=== PATIENT | male | born 1945 | race Caucasian/White ===

== ENCOUNTER → 2017-12-12 12:54 | Outpatient (CLI) | payer MEDICARE, SELFPAY ==
--- NOTE | 2017-12-12 12:57 | CDU_ITS ---
Reason For Study: Carotid stenosis Rt. Velocities/BP Lt. Velocities/BP Prox CCA 99.7/24.0 cm/sec. Prox CCA 103.0/26.4 cm/sec. Mid CCA 93.8/21.7 cm/sec. Mid CCA 95.0/28.1 cm/sec. Dist CCA 93.2/22.9 cm/sec. Dist CCA 86.2/28.7 cm/sec. Prox ICA 87.9/27.0 cm/sec. Prox ICA 86.8/29.9 cm/sec. Mid ICA 89.1/27.0 cm/sec. Mid ICA 96.7/31.7 cm/sec. Dist ICA 99.0/33.6 cm/sec. Dist ICA 107.0/39.3 cm/sec. Rt. ICA/CCA = 1.1. Lt. ICA/CCA = 1.1. Prox ECA 104.0/14.7 cm/sec. Prox ECA 87.4/22.3 cm/sec. Rt. Vert. 36.9/8.6 cm/sec. Lt. Vert. 51.6/15.8 cm/sec. Right Extracranial There is intimal thickening but no significant atherosclerotic plaque noted in the right common carotid artery. There is heterogeneous, irregular atherosclerotic plaque noted in the right internal carotid artery. There is intimal thickening but no significant atherosclerotic plaque noted in the right external carotid artery. Antegrade flow is noted in the right vertebral artery. Left Extracranial There is intimal thickening but no significant atherosclerotic plaque noted in the left common carotid artery. There is heterogeneous, irregular atherosclerotic plaque noted in the left internal carotid artery. There is intimal thickening but no significant atherosclerotic plaque noted in the left external carotid artery. Antegrade flow is noted in the left vertebral artery. Procedure Carotid Duplex [id number]. Exam performed in department. Interpretation Summary Mild (<50%) stenosis right extracranial internal carotid. Mild (<50%) stenosis left extracranial internal carotid. Flow within the vertebral arteries is antegrade bilaterally. Ordering Physician: Melissa العراقي Referring Physician: Melissa العراقي Performed By: Natacha Farfan RVT
== END ==
PROVIDERS: Family Provider Internal Medicine; PCP Internal Medicine; Visit Provider Internal Medicine
DX: I65.23 Occlusion and stenosis of bilateral carotid arteries (principal)
CPT/HCPCS: 93880

== ENCOUNTER → 2018-06-14 10:48 | Outpatient (CLI) | payer MEDICARE, SELFPAY ==
[2018-06-14 11:21] LABS: Hematocrit 42.1 % (40-54); Hemoglobin 14.4 g/dl (13.0-16.5); Mean Corp Hgb Conc 34.2 g/gl (32-36); Mean Corpuscular Hgb 30.3 pg (27.0-32.0); Mean Corpuscular Volume 88.4 fL (80-94); Mean Platelet Vol. 10.2 fl (6.2-12.0); Platelet Count 169 K/mm3 (150-450); RBC Distribution Width CV 12.5 % (11.6-14.6); RBC Distribution Width SD 40.1 fl (35.1-43.9); Red Blood Count 4.76 M/mm3 (4.6-6.2)
[2018-06-14 11:23] LABS: Scan Indicated on CBC? Y/N NO
[2018-06-14 11:51] LABS: Anion Gap 2 (5-15); BUN 18 mg/dL (7-18); BUN/Creat Ratio 17.3 RATIO (10-20); Calcium,Total 9.1 mg/dL (8.5-10.1); Chloride 104 mmol/L (98-107); Creatinine, Serum 1.04 mg/dL (0.70-1.30); EST Glomerular Filtration Rate 75 mL/min (>60); Est Glom Filt Rate - Afr Amer 90 mL/min (>60); Glucose 122 mg/dL (74-106); Potassium 4.3 mmol/L (3.5-5.1); Sodium Level 140 mmol/L (136-145)
== END ==
PROVIDERS: Family Provider Internal Medicine; PCP Internal Medicine; Visit Provider Specialist
DX: Z01.818 Encounter for other preprocedural examination (principal); Z01.810 Encounter for preprocedural cardiovascular examination
CPT/HCPCS: 36415; 80048; 85027

== ENCOUNTER 2018-09-05 11:00 | Outpatient (RCR) | payer MEDICARE, SELFPAY ==
--- NOTE | 2018-07-18 16:51 | HP.OTEVAL ---
Patient's Visit Information RUFINO VALADEZ is a 72 year old M, referred to Occupational Therapy by CHRISTA Hernandez, with a diagnosis of Trigger finger. Date of Evaluation: 07/17/18 Occupational Therapist: Carmina Solares - Subjective Subjective: Pt seen for initial occupational therapy evaluation for L 5th digit trigger finger. Pt had sx 06/28/18 for L trigger fx. Pt independent with BADL's. Pt limited with flexion of L 5th digit making it hard for him to rake leaves, hold a shovel or make a composite fist of L hand and complete functional living tasks around house. No pain at rest, but pt does experience pain with movement of L 5th digit. Pt is R hand dominent. - Pain L fifth digit 2 Pain Intensity Range: 0, 1, 2, 3 - Objective Objective/Observation: Pt demonstrates edema L 5th digit, pt has limited flexion of L 5th digit and decreased strength of L hand. - ROM MP: 5th digit AROM L hand flexion 80' R hand flexion 105' PIP: 5th digit AROM L hand flexion 20' R hand flexion 98' DIP: 5th digit AROM L hand flexion 4' R hand flexion 15' - Strength [employer] Chief: R 60#, L 45# - Edema Other: Slight edema noted L 5th digit PIP region - Sensation Sensation Comments: Pt states no numbness or tingling - DASH-Disabilities of Arm, Shoulder& Hand DASH Sum: 39 - Goals Goal:: Pt will progress w/ L hand coin machine mechanic strength by 10# to assist with functional living tasks by d/c from OT Goal:: Pt will progress with L 5th digit AROM DIP flexion by 7' and PIP flexion by 45' to increase functional use of L hand for grasping objects. Goal:: Pt will minimize pain of L 5th digit with movement no greater than 1/10 by d/c from OT. Goal:: Pt will be educated on scar mngmt techniques with good understanding and demo 100%x. Goal:: Pt will be educated on joint protection and energy conservation techniques with good understanding and demo 100%x. Goal:: Pt will be educated on L hand HEP with good understanding and demo 100%x. - Rehabilitation General Assessment: Pt demonstrates decreased ROM and strength of L 5th digit. Pt demonstrates increased pain with movement of L 5th digit. Pt would benefit from direct occupational therapy services to increase ROM and strength of L 5th digit and decrease pain of L 5th digit with education on HEP, joint protection and scar mngmt technqiues of L 5th digit. Rehabilitation Potential: Excellent - Anticipated Interventions Anticipated Interventions: A/AAROM/PROM, Strengthening, Edema Control, Scar Care, Massage, Modalities, Orthoses, Joint Protection/Energy Conservation, Fine Motor Coord/Vinay, Education re Skin Care and Precautions, Education re Self Massage Techniques, Home Program - Visit Plan Frequency: 1-2x /Week Duration: 4-6 Weeks General Plan: increase ROM of L 5th digit and strength. Decrease pain of L fifth digit with movement. Educate on HEP and scar mngmt techniques. TEXT: Thank you for the opportunity to evaluate your patient. For Medicare and Medicare HMO plans, please review the plan of care and approve it. It will need to be FAXED BACK to us at [phone] for Medicare purposes. Please let me know if there are questions or concerns regarding this plan of care. Physician Signature: Date:
--- NOTE | 2018-08-15 15:18 | HP.OTREVAL ---
CHRISTA Hernandez, It has been my pleasure to treat RUFINO VALADEZ over the last 10 visits for Trigger finger. Please see the progress note below for an update on the occupational therapy plan of care! Subjective: Pt arrived stating finger continues to be triggering really no different. Educated pt on re-assessment this date. Objective/Function: 10th visit and OT re-eval= 15 min Pt continues to have pain with movement of L 5th digit up to 5/10 pending on the task. Pt states no pain at rest L hand. Therapists continues to trial different techniques to break up scar adhesion L 5th digit at A1 malik. Pt has been participating with ultrasounds to assist with breaking up scar tissue, use of hawk tool over scar and around L 5th digit MP region, scar massage techniques, ice massage techniques and use of yellow theraputty to squeeze to increase hand fretted instrument maker strength and assist with breaking up scar adhesion. Pt has progressed with AROM L 5th digit MP joint 80' flexion at evaluation to 105' flexion at re-assessment. Pt PIP flexion of L 5th digit was 20' and now 70'. DIP flexion has progressed from 4' to 10'. Mechanical Oxidizer strength L hand 45#. Recommend continuing skilled OT services to increase L UE hand fretted instrument maker strength, L 5th digit ROM and decrease pain with movement of L 5th digit with continued education of scar massage techniques and L UE HEP 1-2x/wk for 4-6wks Plan Frequency: 1-2x /Week Duration: 4-6 Weeks Visits in this POC: 12 Plan: See Re-eval Goals - Goals Goal:: Pt will progress w/ L hand hand fretted instrument maker strength by 10# to assist with functional living tasks by d/c from OT Goal:: Pt will progress with L 5th digit AROM PIP flexion by 25' to increase functional use of L hand for grasping objects. Goal:: Pt will minimize pain of L 5th digit with movement no greater than 1/10 by d/c from OT. Goal:: Pt will be educated on scar mngmt techniques with good understanding and demo 100%x. Goal:: Pt will be educated on joint protection and energy conservation techniques with good understanding and demo 100%x. Goal:: Pt will be educated on L hand HEP with good understanding and demo 100%x. Anticipated Interventions Anticipated Interventions: A/AAROM/PROM, Strengthening, Edema Control, Scar Care, Massage, Desensitization, Modalities, Orthoses, Joint Protection/Energy Conservation, Fine Motor Coord/Vinay, Education re Skin Care and Precautions, Education re Self Massage Techniques, Home Program Please do not hesitate to contact me at [phone] by phone or if you have questions or concerns regarding this new plan of care! Sincerely, Carmina Solares
--- NOTE | 2018-09-05 13:02 | HP.OTDCSUM ---
HP - OT D/C Summary It has been my pleasure to treat RUFINO VALADEZ under orders from CHRISTA Hernandez, for the diagnosis of Trigger finger for a total of 15 visit(s). Please see the following information for a summary of their discharge status. - Objective Objective/Function: increase flexion and strength L 5th digit - Goals Patient Goals: Regain Strength, Decrease Pain, Decrease Swelling/Stiffness, Improve Fine Motor Skills, Use Hand/Wrist/Arm Normally Again, Increase ROM, Resume Former Household Responsibilities (Cooking,Cleaning,Yard, etc.), Resume Hobbies Goal:: Pt will progress w/ L hand substation superintendent strength by 10# to assist with functional living tasks by d/c from OT Goal:: Pt will progress with L 5th digit AROM PIP flexion by 25' to increase functional use of L hand for grasping objects. Goal:: Pt will minimize pain of L 5th digit with movement no greater than 1/10 by d/c from OT. Goal:: Pt will be educated on scar mngmt techniques with good understanding and demo 100%x. Goal:: Pt will be educated on joint protection and energy conservation techniques with good understanding and demo 100%x. Goal:: Pt will be educated on L hand HEP with good understanding and demo 100%x. - Plan Plan: d/c OT services this date. See d/c for all details - D/C Information Discharge Comments: Pt has progressed with L UE substation superintendent strength and flexion of L 5th digit. Pt has been educated on HEP joint mobilization exercises, yellow theraputty and scar massage techniques with good understanding. Pt has been education on joint protection and energy conservation to L hand with good understanding and demo. Pt has progressed with L hand substation superintendent strength from 45# to 50#. Pt's AROM MP flexion 5th digit has progressed to 110', PIP 95' and DIP 11'. Pt no longer requires skilled OT services at this time. D/C OT If there are questions or concerns regarding this patient's occupational therapy, please fell free to call me at [phone]. Thank you for the referral of this patient. Sincerely, Carmina Solares
== END 2018-09-05 15:39 | disposition home or self-care (01) ==
LOC: OT 11:00
PROVIDERS: Family Provider Internal Medicine; PCP Internal Medicine; Visit Provider Physician Assistant Surgical
DX: M65.351 Trigger finger, right little finger (principal); M65.352 Trigger finger, left little finger
CPT/HCPCS: 97035; 97110; 97140; 97165; 97166; 97168; 97530; G8987; G8988

== ENCOUNTER → 2018-12-17 13:11 | Outpatient (CLI) | payer MEDICARE, SELFPAY ==
--- NOTE | 2018-12-17 13:13 | CDU_ITS ---
Reason For Study: Carotid stenosis Rt. Velocities/BP Lt. Velocities/BP Prox CCA 113.0/21.1 cm/sec. Prox CCA 108.0/28.1 cm/sec. Mid CCA 100.0/22.3 cm/sec. Mid CCA 98.5/23.5 cm/sec. Dist CCA 106.0/27.0 cm/sec. Dist CCA 94.4/25.8 cm/sec. Prox ICA 86.8/21.1 cm/sec. Prox ICA 79.2/28.1 cm/sec. Mid ICA 97.9/27.0 cm/sec. Mid ICA 99.7/34.6 cm/sec. Dist ICA 107.0/29.3 cm/sec. Dist ICA 98.5/35.2 cm/sec. Rt. ICA/CCA = 1.1. Lt. ICA/CCA = 1.0. Prox ECA 106.0/17.6 cm/sec. Prox ECA 107.0/22.3 cm/sec. Rt. Vert. 42.4/9.8 cm/sec. Lt. Vert. 51.6/15.8 cm/sec. Right Extracranial There is intimal thickening but no significant atherosclerotic plaque noted in the right common carotid artery. There is heterogeneous, irregular atherosclerotic plaque noted in the right internal carotid artery. There is no significant atherosclerotic plaque noted in the right external carotid artery. Antegrade flow is noted in the right vertebral artery. Left Extracranial There is intimal thickening but no significant atherosclerotic plaque noted in the left common carotid artery. There is intimal thickening but no significant atherosclerotic plaque noted in the left internal carotid artery. There is intimal thickening but no significant atherosclerotic plaque noted in the left external carotid artery. Antegrade flow is noted in the left vertebral artery. There is heterogeneous, irregular atherosclerotic plaque noted in the left bulb. Procedure Carotid Duplex [id number]. Exam performed in department. Interpretation Summary Mild (<50%) stenosis right extracranial internal carotid. Mild (<50%) stenosis left extracranial internal carotid. Flow within the vertebral arteries is antegrade bilaterally. Ordering Physician: Melissa العراقي Referring Physician: Melissa العراقي Performed By: Natacha Farfan RVT
== END ==
PROVIDERS: Family Provider Internal Medicine; PCP Internal Medicine; Referring Provider Internal Medicine; Visit Provider Internal Medicine
DX: I65.23 Occlusion and stenosis of bilateral carotid arteries (principal)
CPT/HCPCS: 93880

== ENCOUNTER → 2019-07-02 13:31 | Outpatient (CLI) | payer SELFPAY ==
--- NOTE | 2019-07-02 13:35 | CT_ITS ---
STUDY: CARDIAC CALCIUM SCORING - CT CHEST REASON FOR EXAM: Male, 73 years old. Coronary calcium screening, over read. RADIATION DOSAGE (If Supplied By Facility): DLP = ( 219.42 ) mGycm TECHNIQUE: Axial non-enhanced images were acquired through the heart for the sole purpose of measuring coronary artery calcium. Individualized dose optimization techniques were used for this CT. COMPARISON: None. FINDINGS: Body wall soft tissues: No acute process. Osseous structures: No acute process. Mild thoracic spondylosis. Upper abdomen: No acute process. Mediastinum: Normal esophagus. No mass or lymphadenopathy. Lungs: Clear bilaterally. Aorta: Nondilated. Next line pulmonary arteries: Nondilated. Heart: Mild cardiomegaly, no pericardial effusion. Coronary arteries: The right and left coronary arteries each emerge from the appropriate coronary sinus with right carotid artery dominance to the PDA. There is multifocal calcified plaque of the left main, proximal to mid LAD, proximal to mid circumflex, minimal in the proximal RCA, multifocal in the mid to distal RCA. CT/Limited Chest CT w/CCTA IMPRESSION: The coronary calcium score is reported under separate cover with cardiology. Please see that report. Mild cardiomegaly. Normal coronary artery branching anatomy, multivessel, multifocal calcified plaque. No other significant thoracic abnormality. Electronically Signed: Mani Alex MD at 15:09 EDT Tel , Service support ,
[2019-07-02 13:53] VITALS: BP 103/52; PULSE 54; RESP 14; O2SAT 100; BMI 21.9
--- NOTE | 2019-07-02 17:19 | CA.SCORE ---
Calcium Scoring Date of Study:: 07/02/19 Coronary Calcium Scoring: High-resolution Computed Tomographic imaging of the chest was performed on [07/02/2019], with particular attention paid to the coronary arteries. Images from the examination were analyzed for the presence and extent of coronary artery calcification , using coronary calcium quantification software. The patient tolerated the procedure well and there were no complications. The results of the coronary calcification analysis are provided below. - Findings Left Main (LM): 142 Left Anterior Descending (LAD): 203 Left Circumflex (LCX): 190 Right Coronary Artery (RCA): 275 Total Agatston Score: 810 Percentile Rankinth-75th Calcium Scoring Interpretation: 0 No identifiable atherosclerotic plaque. Very low cardiovascular disease risk. <5% chance of presence coronary artery disease A Negative Examination 1-10 Minimal Plaque burden. Significant coronary artery disease very unlikely. 11-100 Mild plaque burden. Likely mild or minimal coronary atherosclerosis. 101-400 Moderate plaque burden Moderate non-obstructive coronary artery disease highly likely. Over 400 Extensive plaque burden. High likelihood of at least one significant coronary stenosis (>50% diameter) Calcium Score: >400 High likelihood of at least one significant coronary stenosis - The above is suggestive of a high likelihood that one coronary artery has at least 50% diameter stenosis. A full evaluation of the cardiac risk should include an assessment of all conventional risk factors and the scores and percentile rankings reported herein should be evaluated in this context.
== END ==
PROVIDERS: Family Provider Internal Medicine; PCP Internal Medicine; Referring Provider Internal Medicine; Visit Provider Internal Medicine
DX: E78.5 Hyperlipidemia, unspecified (principal)
CPT/HCPCS: 75571; 76380

== ENCOUNTER → 2019-07-08 14:46 | Outpatient (CLI) | payer MEDICARE, SELFPAY ==
[2019-07-02 13:53] VITALS: BMI 21.9
--- NOTE | 2019-07-08 14:51 | CT_ITS ---
STUDY: CT ABDOMEN AND PELVIS WITH AND WITHOUT CONTRAST REASON FOR EXAM: Male, 73 years old. Microhematuria. RADIATION DOSAGE (If Supplied By Facility): CTDIvol = ( 9.65 ) mGy, DLP = ( 814.95 ) mGycm TECHNIQUE: Transaxial images were obtained from the dome of the diaphragm to the symphysis pubis without oral contrast. 100cc IV Isovue 300 was administered. Sagittal and coronal images were reconstructed. Individualized dose optimization techniques were used for this CT. COMPARISON: None. FINDINGS: The visualized lung bases are unremarkable. The visualized portions of the heart are within normal limits. Normal liver. Normal gallbladder and extrahepatic biliary system. Normal spleen. Normal pancreas. Normal bilateral adrenal glands. There is a partially exophytic cyst in the posterior mid right kidney. No other evidence of abnormality. Normal left kidney. Normal bilateral ureters. Normal visualized stomach. Normal small intestine. Normal colon. There is non-visualization of the appendix. There is diffuse atherosclerotic calcification of the abdominal aorta, without a demonstrated aneurysm. Normal inferior vena cava. Normal retroperitoneum. There is a minimal circumferential wall thickening of the urinary bladder. There is evidence of bilateral Hutch diverticuli. There are calcifications along the left posterior bladder lumen. The prostate is enlarged and invaginates into the bladder floor. There are coarse calcifications within the upper prostate which invaginates into the bladder floor. There is marked prominence of the seminal vesicles. No pelvic lymphadenopathy is seen. No free air or free fluid is seen within the peritoneal cavity.. Normal abdominal wall. There are diffuse degenerative changes of the visualized lumbar spine. CT/CT Abd/Pelvis W/WO Contrast IMPRESSION: 1. Markedly enlarged prostate which invaginates into the bladder floor. There is mild bladder wall thickening and evidence of small bladder calculi. 2. Prominent seminal vesicles. 3. Right renal cyst. 4. Atherosclerotic changes of the aorta. 5. No other evidence of abdominal or pelvic abnormality. Electronically Signed: Didier Polanco DO at 19:02 EDT Tel [phone], Service support ,
[2019-07-08 15:46] LABS: CREATININE FINGERSTICK 0.8 mg/dL (0.70-1.30)
== END ==
PROVIDERS: Family Provider Internal Medicine; PCP Internal Medicine; Referring Provider Urology; Visit Provider Urology
DX: R31.29 Other microscopic hematuria (principal)
CPT/HCPCS: 74178; Q9967; A4216

== ENCOUNTER 2019-07-25 11:12 | Day surgery (SDC) | payer MEDICARE, SELFPAY ==
[2019-07-02 13:53] VITALS: BMI 21.9
[2019-07-23 14:15] VITALS: BP 115/67; PULSE 64; RESP 16; TEMP 37.1; O2SAT 98; BMI 20.9
[2019-07-25] VITALS (10 sets, daily range): BP systolic 106–148; BP diastolic 53–87; PULSE 53–76; RESP 14–18; TEMP 36.1–36.9; O2SAT 95–100; BMI 20.2; BMI 21.8
[2019-07-25] MEDS: Lactated Ringers 1,000 ML 100 ML IV (12:02)
--- NOTE | 2019-07-25 13:36 | DCINST_ITS ---
Discharge Diet: Light diet - advance as tolerated Discharge Activity: Return to Normal Activity Call your doctor if your incision/area has: Sudden Increased Bleeding Call your doctor if you observe: Fever of 101 or Higher, Inability to urinate Suture Line Care: Avoid Pulling/Pushing, Avoid Pinching/Bending Instructions: Transurethral Resection of the Prostate (TURP): Home Recovery Allergies/Adverse Reactions: Allergies No Known Allergies Allergy (Verified 07/25/19 11:38) Medications to take at Discharge Atenolol [Tenormin (beta Allison)] 12.5 mg PO LUNCH 08/08/16 Atorvastatin Calcium [Lipitor] 20 mg PO QHS 07/23/19 Ciprofloxacin [Cipro] 500 mg PO BID #10 tab 07/25/19 Ibuprofen 600 mg PO Q6H PRN PRN 5 Days #20 tab 07/25/19 The following prescriptions were given: Ciprofloxacin [Cipro] 500 mg PO BID #10 tab Prescription Printed Ibuprofen 600 mg PO Q6H PRN PRN 5 Days #20 tab PRN Reason: Pain Prescription Printed Primary Care Physician: Melissa العراقي DO [Primary Care Provider] - Test Results: Test results from this visit will be discussed in further detail at your follow- up appointment, if applicable. Please Follow Up With: Flash Becker MD When: in 2 weeks, please call to make an appointment.
[2019-07-25] MEDS: Cefazolin 2 GM in 0.9% Normal Saline 100 ML IV (13:41)
--- NOTE | 2019-07-25 14:29 | OP.PCM_ITS ---
Report of Operation Date of Procedure: 07/25/19 Pre-Operative Diagnosis: BPH with obstruction bladder stone and bladder di verticuli Post-Operative Diagnosis: The same Surgery/Procedure Performed:: Transurethral resection of the prostate, evacuation of a small bladder stone, Description of Surgical Findings:: 73-year-old male was found to have hematuria and work-up he was found to have a small but obstructive prostate very distended bladder with diverticuli and a small bladder stone because it is a recommended we proceed and treat the obstructive prostate with a transurethral resection of the prostate also remove the bladder stone. His diverticuli are fairly small at this point I can recommend observation for the diverticuli. 73-year-old male taken back to the operating room after smooth induction of anesthesia he was placed in dorsolithotomy position penis and testicles were prepped and draped in usual sterile fashion went into the bladder with a 24 [place]ian noncontinuous flow resectoscope entire length the urethra is normal the pendulous urethra was normal the bulbar urethra is normal the sphincter was intact identified the verumontanum he had a high riding bladder neck and a lot of median lobe tissue and some mild lateral lobe tissue inside the bladder the trigone was very difficult to identify because of the heavy trabeculation and diverticuli especially in the floor he had large diverticula in the left side of the bladder on the right side the bladder multiply multiple diverticuli sac throughout the bladder I eventually did not identify the trigone and then I proceeded with my resection of the prostate I marked out my distal resection right and from the verumontanum and then started the bladder neck worked my way back to the verumontanum and then resected the floor right lobe of the prostate left lower prostate and very carefully resected the apical roof of the prostate came back to the apex of the prostate make sure there is no flapping tissue and that a flow test had a nice wide open flow Ellik out all the chips of the bladder and then obtain hemostasis in the catheter bladder and continuous bladder irrigation and the patient's anesthetic is currently being reversed. Had a nice wide open channel from the verumontanum and had a good open flow to the flow test. Type of Anesthesia:: General Drains: 3 way bello - Admit VTE Documentation VTE Present on Admission: No VTE Mechan Device Prophylaxis: SCD's
--- NOTE | 2019-07-25 14:40 | PROS_PTH ---
PATIENT: RUFINO VALADEZ LOC: [facility] – [place] U#:[id number] AGE/SX: 73/M ROOM: RE07/25/[address]: Dr. Flash Becker MD : [id number] BED: DIS: 07/26/2019 SPEC #: [id number] RECD: 07/25/19 15:17 STATUS: HARJIT REMiky #: [id number] RODRIGO: 07/25/19 14:[address]: Flash Becker DEPT: SURGICAL PATHOLOGY RECD BY: Jovany Linares ENTERED: 07/28/19 12:10 SP TYPE: TURP OTHR DR: Dr. Melissa العراقي, DO Tissues: Prostate, NOS Procedures: Surgery Specimen Level IV HEADER OPERATION: Cysto, TUR prostate, Olymp[employer] PRE-OP DIAGNOSIS: Benign prostatic hyperplasia TISSUE SUBMITTED: Prostate tissue MICROSCOPIC DIAGNOSIS Prostate tissue, TUR: Benign prostatic hyperplasia, glandular and stromal type. Focal mild chronic inflammation. See comment. SJ:augustin 07/29/19 COMMENT Focal areas of hyalinization is noted. Congo-Red stain with matched control is used in the evaluation of the specimen and negative for amyloid deposition. Case has been reviewed in consultation with Dr. Johnson who concurs with the above diagnosis. IDC:[email or web address] MICROSCOPIC DESCRIPTION Slides are reviewed. GROSS DESCRIPTION Received is one container labeled with the patient's name and designated prostate tissue. The specimen consists of multiple irregular fragments of pink-morgan, rubbery, soft tissue that in aggregate weigh 7.3 gm and measure in aggregate 6.5 x 6 x 0.5 cm. The specimen is totally submitted in seven cassettes. / AM:augustin 07/28/19 TC:5 CPT: 54577, 28668
[2019-07-25] MEDS: Ibuprofen 600 MG Tablet PO ×2 (16:16→22:07)
[2019-07-25] MEDS: 0.9% Normal Saline 1,000 ML 75 ML IV (16:16)
[2019-07-25] MEDS: Ciprofloxacin 500 MG Tablet PO (22:07)
[2019-07-25] MEDS: Docusate Sodium 100 MG Capsule PO (22:07)
[2019-07-25] MEDS: Atorvastatin Calcium 20 MG Tablet PO (22:07)
[2019-07-26 03:13] VITALS: BP 111/61; PULSE 61; RESP 16; TEMP 36.7; O2SAT 98
[2019-07-26] MEDS: 0.9% Normal Saline 1,000 ML 75 ML IV (05:45)
[2019-07-26] MEDS: Ibuprofen 600 MG Tablet PO (08:00)
[2019-07-26] MEDS: Docusate Sodium 100 MG Capsule PO (09:06)
[2019-07-26] MEDS: Ciprofloxacin 500 MG Tablet PO (09:06)
[2019-07-26] MEDS: Pantoprazole Sodium 40 MG Tablet PO (09:06)
--- NOTE | 2019-07-26 09:06 | PCM.PN.BLA ---
Progress Note Postoperative day #1 status post TURP urine is fairly clear little tinge blood but no clots catheter can be removed today by the nursing staff if the patient is able to urinate okay several times in the low postvoid residual he can be discharged home with prescriptions.
[2019-07-26 10:56] VITALS: BP 118/59; PULSE 61; RESP 18; TEMP 36.4; O2SAT 98
[2019-07-26 12:48] VITALS: BP 111/65; PULSE 65; RESP 18; TEMP 37.2; O2SAT 97
[2019-07-26] MEDS: Atenolol 25 MG Tablet 12.5 MG PO (12:53)
== END 2019-07-26 13:21 | disposition home or self-care (01) ==
LOC: SDC 11:12 → AC 11:19 → MS3 14:19
PROVIDERS: Family Provider Internal Medicine; PCP Internal Medicine; Referring Provider Urology; Visit Provider Urology
PROC: (CPT 52630; principal; 2019-07-25 14:30)
DX: N40.1 Benign prostatic hyperplasia with lower urinary tract symptoms (principal); N32.3 Diverticulum of bladder; N32.0 Bladder-neck obstruction; N21.0 Calculus in bladder; N13.8 Other obstructive and reflux uropathy; I10 Essential (primary) hypertension; E78.5 Hyperlipidemia, unspecified; Z87.891 Personal history of nicotine dependence
CPT/HCPCS: 00914; 52630; 88305; J7030; J7120; J2405

== ENCOUNTER 2019-07-27 18:32 | Emergency (ER) | payer MEDICARE, SELFPAY ==
[2019-07-25 16:09] VITALS: BMI 21.8
[2019-07-27 18:33] VITALS: BP 138/82; PULSE 78; RESP 20; TEMP 36.7; BMI 20.7
--- NOTE | 2019-07-27 19:14 | EKG12_ITS ---
Test Reason : CONSTIPATION Blood Pressure : / mmHG Vent. Rate : 056 BPM Atrial Rate : 056 BPM P-R Int : 152 ms QRS Dur : 088 ms QT Int : 428 ms P-R-T Axes : 042 017 024 degrees QTc Int : 413 ms Sinus bradycardia Otherwise normal ECG Confirmed by TIMUR TYSON, KIERRA ([id number]), web content editor AMERICA PEREZ ([id number]) on 07/28/2019 9:09:20 AM Referred By: NATALIE Confirmed By:KIERRA DING MD
--- NOTE | 2019-07-27 19:14 | RAD_ITS ---
STUDY: X-RAY - ABDOMEN/PELVIS REASON FOR EXAM: Male, 73 years old. Prostate surgery. No bowel movement. Dizziness. Constipation. TECHNIQUE: Two AP supine views of the abdomen and pelvis. COMPARISON: None. FINDINGS: Normal lung bases. Nonobstructive bowel gas pattern. Moderate/severe constipation. Osseous structures intact with degenerative changes at the spine, hips and pelvis. RAD/Abdomen Single View IMPRESSION: Nonobstructive bowel gas pattern with moderate/severe constipation Electronically Signed: Yemi Cardona DO at 19:39 EDT Tel , Service support ,
--- NOTE | 2019-07-27 19:15 | ED.DCSUM_ITS ---
History of Present Illness Chief Complaint: Constipation Informant: Patient Onset: Days Current Severity: Mild Maximum Severity: Mild Narrative: Patient presents with constipation. He was in the hospital 2 days ago for p rostate surgery. He was discharged yesterday afternoon. Patient has not had a bowel movement since the day before surgery. He was being given Colace in the hospital. Today he took multiple doses of Ex-Lax and Colace. He was straining on the toilet this afternoon and became lightheaded and felt as if he was going to pass out. He had no chest pain or palpitations. Past Medical History - Allergies and Home Meds Allergies/Adverse Reactions: Allergies No Known Allergies Allergy (Verified 07/25/19 11:38) Primary Care Physician: Melissa العراقي DO [Primary Care Provider] - Doctors: Dr. Becker Prior records reviewed: Yes Past Medical History: - - Reviewed Lives: Spouse/ Significant Other Smoking Status: Never smoker Review of Systems General: Denies: Chills, Fever Eyes: Denies: Visual changes - bilaterally ENT: Denies: Bilateral ear pain Cardiovascular: Denies: Chest pain, Palpitations Respiratory: Denies: Dyspnea, Cough Gastrointestinal: Reports: Constipation. Denies: Abdominal pain, Nausea, Vomiting Genitourinary: Reports: Hematuria Musculoskeletal: Denies: Back pain, Extremity Pain Neurological: Denies: Headache Physical Exam Vital Signs/Narrative: Vital Signs Temp Pulse Resp BP 07/27/19 18:33 98.0 F 78 20 H 138/82 H Inital Vital Signs reviewed: Yes General: Well nourished, Well developed Eyes: Perrl, EOMI ENT: Moist mucous membranes Neck: Supple Cardiovascular: Regular rate, Regular rhythm Respiratory: No distress, CTA bilaterally Abdomen: Soft, Nontender, Normal bowel sounds Skin: Normal color, No rash Neurological: Alert, Oriented x3 Psychological: Normal affect Diagnostic/Tx/Re-eval Impressions KUB X-Ray 07/27/19 19:14 IMPRESSION: Nonobstructive bowel gas pattern with moderate/severe constipation Electronically Signed: Yemi Cardona DO at 19:39 EDT Tel , Service support , 07/27/19 19:14 Abdomen Single View [RAD] Stat - EKG Initial EKG Interpretation: Sinus Rhythm - Sinus at 56 with no acute ischemia. - Medical Decision Making Patient was given a soapsuds enema in the emergency room. He had small results. He is given GoLYTELY for home which he will use tomorrow. Patient's EKG is unremarkable. I believe his near syncopal episode was secondary to his straining. He voices understanding and agreement. ED Disposition - Plan for ED Patient: Disposition: Home or Assisted Living Diagnosis: Constipation Instructions: CONSTIPATION (Adult) Referrals: Malcom,Melissa, DO [Primary Care Provider] - Additional Instructions: Start your Go-Lytely tomorrow. Drink one glass every 20 minutes for 2 hours. Wait 2 hours to see if you have results - if not start drinking another glass every 20 minutes.
--- NOTE | 2019-07-27 19:19 | ED.RN ---
NO OLD EKGS IN MUSE
[2019-07-27] MEDS: Electrolyte Solution/Peg's 4000 ML PO (21:21)
[2019-07-27 21:22] VITALS: BP 130/78; PULSE 72; RESP 18; O2SAT 100
== END 2019-07-27 21:23 | disposition home or self-care (01) ==
PROVIDERS: Emergency Provider Emergency Medicine; Family Provider Internal Medicine; PCP Internal Medicine
DX: K59.00 Constipation, unspecified (principal)
CPT/HCPCS: 74018; 93005; 99283

== ENCOUNTER → 2019-08-18 11:53 | Outpatient (CLI) | payer MEDICARE, SELFPAY ==
[2019-07-27 18:33] VITALS: BMI 20.7
[2019-08-18 11:56] LABS: Bacteria 0 SEEN /hpf (None Seen); Mucous, Urine 0 SEEN /hpf (<or=2+)
[2019-08-18 12:00] LABS: Absolute Lymphocyte Count 0.74 X10^3/uL (0.83-4.51); Basophil# 0.03 X10^3/uL; Basophil% 0.6 % (0-1); Eosinophil# 0.03 X10^3/uL; Eosinophils% 0.6 % (0-5); Hematocrit 42.9 % (40-54); Hemoglobin 14.6 g/dL (13.0-16.5); Lymphocyte # 0.74 X10^3/ul (4.0); Lymphocyte % 14.9 % (19-41); Mean Corpuscular Volume 88.3 fL (80-94); Mean Platelet Vol. 10.3 fl (6.2-12.0); NRBC Flagged by Analyzer 0 % (0-5); Neutrophil # 3.95 X10^3/uL (2.7-7.7); Neutrophil % 79.5 % (47-70); Platelet Count 236 K/mm3 (150-450); RBC Distribution Width CV 12.5 % (11.6-14.6); RBC Distribution Width SD 40.7 fl (35.1-43.9); Red Blood Count 4.86 M/mm3 (4.6-6.2)
[2019-08-18 12:30] LABS: ALB/GLOB Ratio 1.5 RATIO (0.9-2.4); AST(SGOT) 18 U/L (15-37); Alanine Aminotransfer ALT/SGPT 25 U/L (16-61); Albumin, Serum 4.1 g/dL (3.2-5.0); Alkaline Phosphatase 101 U/L (45-117); Anion Gap 7 (5-15); BUN 15 mg/dL (7-18); BUN/Creat Ratio 17.6 RATIO (10-20); Calcium,Total 9.6 mg/dL (8.5-10.1); Chloride 108 mmol/L (98-107); Creatinine, Serum 0.85 mg/dL (0.70-1.30); EST Glomerular Filtration Rate 94 mL/min (>60); Est Glom Filt Rate - Afr Amer 114 mL/min (>60); Globulin 2.8 g/dL (2.2-4.2); Glucose 185 mg/dL (74-106); Potassium 4.3 mmol/L (3.5-5.1); Protein, Total 6.9 g/dL (6.4-8.2); Sodium Level 144 mmol/L (136-145); Thyroid Stim Hormone (TSH) 3.34 uIU/mL (0.358-3.74)
[2019-08-18 12:33] LABS: Color, Urine Yellow (Yellow); Glucose, Dipstick 1000 mg/dl (Normal); Ketone-Dipstick Negative (Negative); Leukocyte Esterase-Dipstick 100 /ul (Negative); Nitrite-Dipstick Negative (Negative); Occult Blood-Urine 150 /ul (Negative); Protein-Dipstick Negative (Negative); Specific Gravity, Urine 1.005 (1.002-1.030); Urine Bilirubin Dipstick Negative (Negative); Urine Clarity Clear (Clear); Urine Urobilinogen Normal (Normal)
[2019-08-18 12:42] LABS: Red Blood Cells-Urine 10-25 SEEN /hpf (0-5); Squamous Epithelial Cells - UA 0 SEEN /hpf (0-5); White Blood Cells 10-25 SEEN /hpf (0-5)
== END ==
PROVIDERS: Family Provider Internal Medicine; PCP Internal Medicine; Referring Provider Internal Medicine; Visit Provider Internal Medicine
DX: R03.0 Elevated blood-pressure reading, without diagnosis of hypertension (principal); R42 Dizziness and giddiness; I16.0 Hypertensive urgency
CPT/HCPCS: 80053; 81001; 84443; 84484; 85025

== ENCOUNTER → 2019-08-21 07:52 | Outpatient (CLI) | payer MEDICARE, SELFPAY ==
[2019-07-27 18:33] VITALS: BMI 20.7
--- NOTE | 2019-08-21 07:54 | RDU_ITS ---
Reason For Study: hypertensive urgency Right Renal Artery Left Renal Artery Right renal artery ostium Left renal artery ostium 127.5/29.0 185.0/52.4 RSV/EDV. PSV/EDV. Right renal artery proximal Left renal artery proximal PSV/EDV 194.7/52.4 PSV/EDV. 109.4/36.8 . Right renal artery mid 177.0/42.5 Left renal artery mid 122.3/31.6 PSV/EDV. PSV/EDV . Right renal artery distal Left renal artery distal 169.0/42.0 165.1/42.5 PSV/EDV. PSV/EDV. Right Renal Parenchyma Left Renal Parenchyma Upper Pole Medula 35.2/11.9 Left upper pole medulla 28.5/10.2 PSV/EDV. PSV/EDV . Right upper pole medulla EDR .34 . Left upper pole medulla EDR .36 . Right upper pole medulla R.I. .66 . Left upper pole medulla R.I. .64 . Upper [place] Cortx 21.6/8.7 PSV/EDV. UP Cortex 19.4/9.3 PSV/EDV. Right upper pole cortex EDR .4 . Left upper pole cortex EDR .48 . Right upper pole cortex R.I. .6 . Left upper pole cortex R.I. .52 . Right lower Pole medulla 29.0/11.2 Left lower Pole medulla 38.5/15.7 PSV/EDV . PSV/EDV . Right lower pole medulla EDR .39 . Left lower pole medulla EDR .41 . Right lower pole medulla R.I. .61 . Left lower pole medulla R.I. .59 . Lower Pole Cortex 19.2/6.9 PSV/EDV. Lower Pole Cortx 26.7/10.2 PSV/EDV. Right lower pole cortex EDR .36 . Left lower pole cortex EDR .38 . Right lower pole cortex R.I. .64 . Left lower pole cortex R.I. .62 . Right Renal Hilar Left Renal Hilar Right Hilar avg 58.6/21.0 PSV/EDV. LT Hilar avg 56.8/19.4 PSV/EDV . Right hilar acceleration time 50.0 Left hilar acceleration time 60.0 m/sec. m/sec. Right Renal Dimensions Left Renal Dimensions Right kidney size 10.4 cm . Left kidney size 10.3 cm . Right cortical dimension 1.86 cm . Left cortical dimension 1.44 cm . Aorta Proximal abdominal aorta 1.33 x 1.64 cm . Proximal abdominal aorta peak systolic velocity is 130 cm/sec . Distal abdominal aorta 1.15 x 1.33 cm . Distal abdominal aorta peak systolic velocity is 97.0 cm/sec . Normal renal veins bilat. Interpretation Summary Dimensions of the intra-abdominal aorta appear normal, without evidence of aneurysmal dilatation. Velocities in the right ostial and proximal renal artery are slightly elevated. Velocities in the left renal artery are normal. Acceleration timeas are normal bilaterally. There may be mild stenosis in the right ostial and proximal renal artery, but no evidence of hemodynamically significant stenosis on either side. Renovascular resistance appears to be bilaterally normal . The right cortical dimension is increased. The left cortical dimension is normal. Kidneys appear normal in size bilaterally. Ordering Physician: Melissa العراقي Performed By: Emmett Urban RVT
== END ==
PROVIDERS: Family Provider Internal Medicine; PCP Internal Medicine; Referring Provider Internal Medicine; Visit Provider Internal Medicine
DX: I10 Essential (primary) hypertension (principal)
CPT/HCPCS: 93975

== ENCOUNTER 2019-08-26 02:06 | Day surgery (SDC) | payer MEDICARE, SELFPAY ==
[2019-08-26] VITALS (9 sets, daily range): BP systolic 100–146; BP diastolic 55–89; PULSE 56–76; RESP 16–20; TEMP 36.2–37.2; O2SAT 93–100; BMI 21.4; BMI 20.1
--- NOTE | 2019-08-26 02:47 | ED.VIS.GEN ---
History of Present Illness Chief Complaint: Complaint Informant: Patient Onset: Today Context: Gradual Onset Timing: Continuous Narrative: 73-year-old male with history of TURP by Dr. Zepeda 20 days ago is presenting with urinary incontinence and hematuria. Patient states a couple days ago he started having blood in his urine. He called his urologist who said this is normal at this time point. That had cleared up but then tonight before he went to bed he noticed he had blood in his urine again. He woke up in the middle the night because he had urinated on himself and stated it was dark red blood with some clots. He is having a lot of discomfort in his penis and his suprapubic region. He states he feels that he needs to pee but cannot. Patient is not on any blood thinners. He denies any trauma to the area. He denies any other complaints at this time. Past Medical History - Allergies and Home Meds Allergies/Adverse Reactions: Allergies No Known Allergies Allergy (Verified 07/25/19 11:38) Primary Care Physician: Melissa العراقي DO [Primary Care Provider] - Past Medical History: - - Hypertension, hyperlipidemia Surgical History: TURP Lives: Spouse/ Significant Other Smoking Status: Former smoker Review of Systems All systems negative except as indicated Gastrointestinal: Reports: Abdominal pain - Suprapubic Genitourinary: Reports: Hematuria, Frequency Physical Exam Vital Signs/Narrative: Vital Signs Temp Pulse Resp BP Pulse Ox 08/26/19 02:06 98.2 F 71 20 H 146/89 H 100 Inital Vital Signs reviewed: Yes General: Well nourished, Well developed, No Acute Distress Head: Normocephalic, Atraumatic Eyes: Perrl, EOMI ENT: Moist mucous membranes, No rhinorrhea Neck: Supple, Nontender Cardiovascular: Regular rate, Regular rhythm, No murmurs Respiratory: No distress, CTA bilaterally, Chest nontender Abdomen: Soft, Nondistended, Normal bowel sounds, Tender - Suprapubic region, Guarding - Voluntary : - - Bright red blood is noted at the meatus with no evidence of trauma, normal testicles Back: Nontender, Normal Inspection. Negative for: CVA tenderness Extremities: Nontender, No edema Skin: Normal color, No rash Neurological: Alert, Oriented x3 Psychological: Normal affect, - - Anxious Diagnostic/Tx/Re-eval Laboratory Data 08/26/19 08/26/19 08/26/19 03:20 03:20 04:35 WBC 9.7 RBC 4.84 Hgb 14.4 Hct 41.3 MCV 85.3 MCH 29.8 MCHC 34.9 RDW Std Deviation 37.2 RDW Coeff of Treva 12.0 Plt Count 219 MPV 10.1 Immature Gran % (Auto) 0.400 Neut % (Auto) 73.1 H Lymph % (Auto) 18.8 L [place] % (Auto) 6.3 Eos % (Auto) 1.0 Baso % (Auto) 0.4 Absolute Neuts (auto) 7.1 Absolute Lymphs (auto) 1.82 Nucleated RBC % 0 Sodium 139 Potassium 3.5 Chloride 105 Carbon Dioxide 23.0 Anion Gap 11 BUN 14 Creatinine 1.08 Estim Creat Clear Calc 54.22 Est GFR (MDRD) Af Amer 86 Est GFR (MDRD) Non-Af 71 BUN/Creatinine Ratio 13.0 Glucose 147 H Calcium 9.6 Urine Color Red Urine Clarity Turbid Urine pH 8.0 Ur Specific [place] 1.015 Urine Protein 500 H Urine Glucose (UA) Normal Urine Ketones 15 H Urine Occult Blood 250 H Urine Nitrite Negative Urine Bilirubin Negative Urine Urobilinogen Normal Ur Leukocyte Esterase Negative Urine RBC > 100 SEEN Urine WBC 10-25 SEEN Ur Squamous Epith Cells 0 SEEN Urine Bacteria 0 SEEN Urine Mucus 0 SEEN - Medical Decision Making Patient is evaluated for dysuria and hematuria. Clinically he is acute urinary retention secondary to hematuria. Initially patient has difficulty with Li catheter placement secondary to pain. Urojet is used as well as IV Valium. Nurses unable to pass a Li. Patient was then medicated with IV morphine and I am able to pass coud? catheter. Patient has over thousand cc of urine and clots out. Patient significant improvement of his symptoms. Patient has a relatively normal CBC and BMP with most significantly no anemia or acute kidney injury. Patient be discharged home to follow-up with Dr. Zepeda with Li catheter in place. Patient is counseled on signs and symptoms requiring return to the emergency room. Patient verbalizes agreement and understand this plan. Patient discharged home in stable and improved condition. ED Disposition - Plan for ED Patient: Disposition: Home or Assisted Living Diagnosis: Acute urinary retention, Hematuria Instructions: URINARY RETENTION, Male Referrals: Malcom,Melissa, DO [Primary Care Provider] - Eugenio,Pollo, MD [STAFF PHYSICIAN] - Additional Instructions: Call your urologist later today to set up a follow-up appointment. Your urologist will be able to remove your Li catheter. If you cannot get in, you may follow-up with your primary care doctor. Return to the emergency room or call your urologist if you notice that you have significant return of your pain and you are not having normal urine output into the Li catheter bag.
--- NOTE | 2019-08-26 03:05 | ED.RN ---
Attempted to place bello. PT screamed during entire process. Emotional support given by me and . PT unable to breath through the procedure. Procedure aborted. Warm blankets given. updated.
[2019-08-26] MEDS: LORazepam 2 MG/ML Syringe 1 MG IV (03:28)
[2019-08-26] MEDS: Lidocaine Jelly 2% 20 ML Syringe (URO-JET) 20 APPLIC TOPICAL (03:29)
[2019-08-26 03:41] LABS: Anion Gap 11 (5-15); BUN 14 mg/dL (7-18); Calcium,Total 9.6 mg/dL (8.5-10.1); Chloride 105 mmol/L (98-107); Creatinine, Serum 1.08 mg/dL (0.70-1.30); EST Glomerular Filtration Rate 71 mL/min (>60); Est Glom Filt Rate - Afr Amer 86 mL/min (>60); Estimated Creatinine Clearance 54.22 ml/min; Glucose 147 mg/dL (74-106); Potassium 3.5 mmol/L (3.5-5.1); Sodium Level 139 mmol/L (136-145)
--- NOTE | 2019-08-26 03:54 | ED.RN ---
Attempted 2nd bello placement. PT tolerated procedure moderately well, much better than before. Still unable to get past prostate. MD aware and wants to attempt with coude.
[2019-08-26 04:03] LABS: Absolute Lymphocyte Count 1.82 X10^3/uL (0.83-4.51); Absolute Neutrophil Count 7.1 X10^3/uL (2.0-7.7); Basophil# 0.04 X10^3/uL; Basophil% 0.4 % (0-1); Hematocrit 41.3 % (40-54); Hemoglobin 14.4 g/dL (13.0-16.5); Lymphocyte # 1.82 X10^3/ul (4.0); Lymphocyte % 18.8 % (19-41); Mean Corp Hgb Conc 34.9 g/dL (32-36); Mean Corpuscular Hgb 29.8 pg (27.0-32.0); Mean Corpuscular Volume 85.3 fL (80-94); Mean Platelet Vol. 10.1 fl (6.2-12.0); Monocyte# 0.61 X10^3/uL; Monocyte% 6.3 % (0-10); NRBC Flagged by Analyzer 0 % (0-5); Neutrophil # 7.06 X10^3/uL (2.7-7.7); Neutrophil % 73.1 % (47-70); Platelet Count 219 K/mm3 (150-450); RBC Distribution Width SD 37.2 fl (35.1-43.9); Red Blood Count 4.84 M/mm3 (4.6-6.2); White Blood Count 9.7 K/mm3 (4.4-11.0)
[2019-08-26] MEDS: Morphine 4 MG/ML Syringe IV (04:04)
--- NOTE | 2019-08-26 04:20 | ED.RN ---
Jessee bello [address]F placed [address] Stringer.
[2019-08-26 04:40] LABS: Bacteria 0 SEEN /hpf (None Seen); Mucous, Urine 0 SEEN /hpf (<or=2+); Squamous Epithelial Cells - UA 0 SEEN /hpf (0-5)
[2019-08-26 04:46] LABS: Color, Urine Red (Yellow); Glucose, Dipstick Normal (Normal); Ketone-Dipstick 15 mg/dl (Negative); Leukocyte Esterase-Dipstick Negative /ul (Negative); Nitrite-Dipstick Negative (Negative); Occult Blood-Urine 250 /ul (Negative); Protein-Dipstick 500 mg/dl (Negative); Specific Gravity, Urine 1.015 (1.002-1.030); Urine Bilirubin Dipstick Negative (Negative); Urine Clarity Turbid (Clear); Urine Urobilinogen Normal (Normal)
[2019-08-26 04:51] LABS: Red Blood Cells-Urine > 100 SEEN /hpf (0-5); White Blood Cells 10-25 SEEN /hpf (0-5)
--- NOTE | 2019-08-26 18:14 | NURSING ---
report called to Lorena FLORES in surgery
--- NOTE | 2019-08-26 18:28 | PCM.HP.STD ---
History of Present Illness Date of Admission: 08/26/19 Chief Complaint: Gross hematuria and bleeding status post TURP The patient is a 73 year old male who presented to the ER with bleeding catheter was placed and came to the office we are not able to irrigate the bladder because the clots so he was admitted to the hospital working to taken to surgery to evacuate the blood clots. Past Medical History Allergies No Known Allergies Allergy (Verified 07/25/19 11:38) Home Medications: Ambulatory Orders Medication Instructions Recorded Atenolol [Tenormin (beta Allison)] 12.5 mg PO LUNCH 08/08/16 Atorvastatin Calcium [Lipitor] 20 mg PO QHS 07/23/19 Aspirin 81 mg PO DAILY 07/27/19 Amlodipine [Norvasc] 2.5 mg PO 1800 08/26/19 Surgical History: TURP Lives: Spouse/ Significant Other Smoking Status: Former smoker - *Family History Maternal History Items: No pertinent history Review of Systems Constitutional: Denies: Chills, Fever, Weight Change HEENT: Denies: Head Aches, Sinus Congestion, Sinus Drainage Cardiovascular: Denies: Chest Pain, Palpitations Respiratory: Denies: Cough, Shortness of breath at rest, Sputum production Gastrointestinal: Denies: Abdominal Pain, Nausea, Vomiting Genitourinary: Denies: Dysuria Musculoskeletal: Denies: Joint Pain, Joint Tenderness Skin: Denies: Rash, Wounds Neurological: Denies: Numbness, Tingling, Focal weakness Psychiatric: Denies: Anxiety, Depression, Homicidal Ideations, Suicidal Ideations Hematologic/ Lymphatic: Denies: Easy Bruising, Easy Bleeding VTE Information - Inpt Only VTE Present on Admission: No VTE Mechan Device Prophylaxis: SCD's Patient Problems: Active and Suspected Problems Acute urinary retention (Acute) Hematuria (Acute) - Physical Exam Vitals/I&O's: Vital Signs Temp Pulse Resp BP Pulse Ox 98.0 F 61 16 120/65 98 08/26/19 17:46 08/26/19 17:46 08/26/19 17:46 08/26/19 17:46 08/26/19 17:46 Oxygen Delivery Method Room Air Weight: 58.3 kg Body Mass Index (BMI) 20.1 General: Alert, Oriented x3, Cooperative HEENT: Atraumatic, PERRLA, EOMI, Normocephalic Neck: Supple, No JVD, Negative Carotid Bruits Lungs: Clear to auscultation, Normal air movement Cardiovascular: Regular rate, No murmurs Abdomen: Bowel Sounds Present, Soft, Non Tender Extremities: No edema, Capillary Refill Less than 3 Seconds Skin: No rashes, No breakdown Musculoskeletal: No Tenderness to Palpation of Joints or Extremities Neurological: Cranial nerves II-XII grossly intact Psych/Mental Status: Normal Affect, Appropriate Laboratory Results 08/26/19 03:20: WBC 9.7, RBC 4.84, Hgb 14.4, Hct 41.3, MCV 85.3, MCH 29.8, MCHC 34.9, RDW Std Deviation 37.2, RDW Coeff of Treva 12.0, Plt Count 219, MPV 10.1, Immature Gran % (Auto) 0.400, Neut % (Auto) 73.1 H, Lymph % (Auto) 18.8 L, [place] % (Auto) 6.3, Eos % (Auto) 1.0, Baso % (Auto) 0.4, Absolute Neuts (auto) 7.1, Absolute Lymphs (auto) 1.82, Nucleated RBC % 0 08/26/19 03:20: Sodium 139, Potassium 3.5, Chloride 105, Carbon Dioxide 23.0, Anion Gap 11, BUN 14, Creatinine 1.08, Estim Creat Clear Calc 54.22, Est GFR (MDRD) Af Amer 86, Est GFR (MDRD) Non-Af 71, BUN/Creatinine Ratio 13.0, Glucose 147 H, Calcium 9.6 08/26/19 04:35: Urine Color Red, Urine Clarity Turbid, Urine pH 8.0, Ur Specific [place] 1.015, Urine Protein 500 H, Urine Glucose (UA) Normal, Urine Ketones 15 H, Urine Occult Blood 250 H, Urine Nitrite Negative, Urine Bilirubin Negative, Urine Urobilinogen Normal, Ur Leukocyte Esterase Negative, Urine RBC > 100 SEEN, Urine WBC 10-25 SEEN, Ur Squamous Epith Cells 0 SEEN, Urine Bacteria 0 SEEN, Urine Mucus 0 SEEN Current Medications Sodium Chloride () 10 - 40 ml IV UD PRN PRN Reason: SALINE FLUSH Assessment/Plan All Active Problems Acute urinary retention (Acute) Hematuria (Acute) 73-year-old male status post TURP comes in with gross hematuria and bleeding, unable to evacuate the blood clots in the office will plate taken to surgery today for cystoscopy evacuation of blood clots and placement of a continuous catheter.
--- NOTE | 2019-08-26 19:18 | PCM.OPRPT ---
Report of Operation Date of Procedure: 08/26/19 Pre-Operative Diagnosis: Postop TURP with postop hemorrhage Post-Operative Diagnosis: Same Surgery/Procedure Performed:: Cystoscopy evacuation of blood clots cauterization of the prostate for bleeding Description of Surgical Findings:: 73-year-old male who about a month ago was status post a TURP he states he was not doing any heavy lifting or heavy activity he started having some bleeding went to the emergency room catheter was placed then presented to my office were not able to irrigate the catheter I did a cystoscopy found to have a lot of clots in his bladder so I admitted the patient taken the surgery immediately for cystoscopy evacuation of blood clots and cauterization of bleeding patient taken back to the operating room placed in dorsolithotomy position penis and testicles were prepped and draped in usual sterile fashion went into the bladder the entire length urethra is normal the bulbar urethra normal the sphincter was intact immediately the prostatic fossa there is a lot of blood clots and a lot of old blood clots in the bladder manually irrigated out all his blood clots then there is some blood clot taken onto the prostate edges these were cauterized and removed and then I cauterized the fossa of the prostate very carefully. Identified the right and left ureteral orifice which are uninjured and uninvolved on the cauterization. I then placed a three-way catheter in the bladder and continuous bladder irrigation the urine was nice and clear is taken back to PACU good condition. Type of Anesthesia:: General - Admit VTE Documentation VTE Present on Admission: No VTE Mechan Device Prophylaxis: SCD's
[2019-08-26] MEDS: Lactated Ringers 1,000 ML 100 ML IV (19:37)
[2019-08-26] MEDS: 0.9% Normal Saline 1,000 ML 75 ML IV (20:40)
[2019-08-26] MEDS: Atorvastatin Calcium 20 MG Tablet PO (22:24)
[2019-08-26] MEDS: Docusate Sodium 100 MG Capsule PO (22:24)
[2019-08-27 02:11] VITALS: BP 98/50; PULSE 58; RESP 16; TEMP 37.2; O2SAT 95
[2019-08-27 06:15] VITALS: BP 109/58; PULSE 66; RESP 16; TEMP 36.7; O2SAT 97
[2019-08-27 08:20] VITALS: PULSE 65; RESP 16
[2019-08-27 08:31] VITALS: BP 109/58; PULSE 65; RESP 16; TEMP 36.9; O2SAT 95
[2019-08-27] MEDS: Pantoprazole Sodium 40 MG Tablet PO (08:49)
[2019-08-27] MEDS: Acetaminophen 325 MG Tablet PO (08:49)
[2019-08-27] MEDS: Docusate Sodium 100 MG Capsule PO (08:49)
[2019-08-27] MEDS: 0.9% Normal Saline 1,000 ML 75 ML IV (08:49)
--- NOTE | 2019-08-27 10:24 | BH.SGPN.T2 ---
Behaviors/Verbalizations/Mental Status: [] Client Response/Progress/Benefit: [] Narrative Note: [] Pt. complained of dull pain in the penial region related to the CBI and cystoscopy.
--- NOTE | 2019-08-27 10:56 | CASEMGMT ---
SW let pt know that LW/POA forms are not on file. Pt will bring in the forms as able. ORLANDO Kebede
[2019-08-27 13:11] VITALS: BP 105/60; PULSE 82; RESP 15; TEMP 36.8; O2SAT 100
--- NOTE | 2019-08-27 15:04 | DCINST_ITS ---
Discharge Diet: Light diet - advance as tolerated Discharge Activity: Return to Normal Activity Call your doctor if your incision/area has: Sudden Increased Bleeding Instructions: URINARY RETENTION, Male Allergies/Adverse Reactions: Allergies No Known Allergies Allergy (Verified 07/25/19 11:38) Medications to take at Discharge Atenolol [Tenormin (beta Allison)] 12.5 mg PO LUNCH 08/08/16 Atorvastatin Calcium [Lipitor] 20 mg PO QHS 07/23/19 Aspirin 81 mg PO DAILY 07/27/19 Amlodipine [Norvasc] 2.5 mg PO 1800 08/26/19 Primary Care Physician: Melissa العراقي DO [Primary Care Provider] - Flash Becker MD [STAFF PHYSICIAN] - Test Results: Test results from this visit will be discussed in further detail at your follow- up appointment, if applicable. Please Follow Up With: Flash Becker MD When: please call to make an appointment.
--- NOTE | 2019-08-27 15:42 | NURSING ---
Read and reviewed SN documentation
== END 2019-08-27 15:05 | disposition home or self-care (01) ==
LOC: ED 05:04 → PCU 17:33 → SDC 21:19 → PCU 21:22
PROVIDERS: Emergency Provider Emergency Medicine; Family Provider Internal Medicine; PCP Internal Medicine; Referring Provider Urology; Visit Provider Urology
PROC: 0TBB8ZX Excision of Bladder, Via Natural or Artificial Opening Endoscopic, Diagnostic (ICD-10-PCS; CPT 52001; principal; 2019-08-26 18:15)
DX: R31.0 Gross hematuria (principal); R33.9 Retention of urine, unspecified; E78.5 Hyperlipidemia, unspecified; I10 Essential (primary) hypertension; Z87.891 Personal history of nicotine dependence
CPT/HCPCS: 52001; 51702; 80048; 81001; 85025; 97802; 99284; J7030; J7120; A4216; J2405

== ENCOUNTER → 2019-09-05 13:46 | Outpatient (CLI) | payer MEDICARE, SELFPAY ==
[2019-08-26 17:53] VITALS: BMI 20.1
--- NOTE | 2019-09-05 13:49 | ECHOD_ITS ---
Reason For Study: HTN Procedure This was a 2D Doppler, Color Flow transthoracic echocardiogram. The exam was of adequate technical quality. Exam performed in department. Left Ventricle Normal LV size. Left ventricular systolic function is normal. The estimated ejection fraction is 60 %. No evidence for diastolic dysfunction. No regional wall motion abnormalities noted. Right Ventricle Normal RV size. Normal systolic function. Atria Normal left atrium. Normal right atrium. No doppler evidence for ASD. Mitral Valve There is no mitral annular calcification. Normal mitral valve. Trivial mitral valve insufficiency. Tricuspid Valve Normal tricuspid valve. Mild tricuspid valve insufficiency. Right ventricular systolic pressure estimated to be 25 mmHg. Aortic Valve Trisinus/trileaflet aortic valve. Mild focal aortic valve calcification. Pulmonic Valve The pulmonic valve is not well visualized. Trivial pulmonic valve insufficiency. Great Vessels Normal sized aortic root. Pericardium/Pleural No pericardial effusion. MMode/2D Measurements & Calculations LVIDd: 4.3 cm IVSd: 0.89 cm Ao root diam: 2.7 cm LVIDs: 2.6 cm LVPWd: 1.0 cm RVDd: 3.4 cm FS: 39.1 % LAV(MOD-bp): 22.1 ml LVAd ap4: 25.9 cm2 SV(MOD-sp4): 40.7 ml LAV(MOD-bp) Indexed: 13.1 ml/m2 EDV(MOD-sp4): 66.9 ml LAV(MOD-sp2): 29.0 ml EDV(sp4-el): 68.3 ml LAV(MOD-sp4): 15.3 ml LVAs ap4: 14.7 cm2 ESV(MOD-sp4): 26.2 ml ESV(sp4-el): 26.8 ml EF(MOD-sp4): 60.8 % EF(sp4-el): 60.7 % SV(sp4-el): 41.4 ml LA A4 area: 9.5 cm2 LA dimension(2D): 2.5 cm RA A4 area: 14.0 cm2 Doppler Measurements & Calculations MV E max gary: 81.5 cm/sec Lat Peak E' Gary: 11.0 cm/sec Med Peak E' Gary: 11.0 cm/sec MV A max gary: 55.9 cm/sec E/E' lat: 7.4 E/E' med: 7.4 MV E/A: 1.5 Ao V2 max: 148.4 cm/sec LV V1 max: 98.5 cm/sec PA V2 max: 84.7 cm/sec Ao max P.8 mmHg LV V1 max P.9 mmHg Ao V2 mean: 102.0 cm/sec Ao mean P.6 mmHg Ao V2 VTI: 31.9 cm TR max gary: 235.0 cm/sec TR max P.1 mmHg Interpretation Summary Left ventricular systolic function is normal. The estimated ejection fraction is 60 %. Trivial mitral valve insufficiency. Mild tricuspid valve insufficiency. Mild focal aortic valve calcification. Trivial pulmonic valve insufficiency. Right ventricular systolic pressure estimated to be 25 mmHg. No evidence for diastolic dysfunction. Ordering Physician: Melissa العراقي Referring Physician: Melissa العراقي Performed By: Hazel Viera, HANDY, RVT
== END ==
PROVIDERS: Family Provider Internal Medicine; PCP Internal Medicine; Referring Provider Internal Medicine; Visit Provider Internal Medicine
DX: I25.10 Atherosclerotic heart disease of native coronary artery without angina pectoris (principal); I10 Essential (primary) hypertension; E78.5 Hyperlipidemia, unspecified; L57.0 Actinic keratosis
CPT/HCPCS: 93306

== ENCOUNTER → 2019-12-29 12:51 | Outpatient (CLI) | payer MEDICARE, SELFPAY ==
[2019-08-26 17:53] VITALS: BMI 20.1
--- NOTE | 2019-12-29 13:01 | CDU_ITS ---
Reason For Study: Atherosclerosis Rt. Velocities/BP Lt. Velocities/BP Prox CCA 104.7/21.3 cm/sec. Prox CCA 98.6/24.9 cm/sec. Mid CCA 102.1/23.9 cm/sec. Mid CCA 87.6/20 cm/sec. Dist CCA 96.9/23.9 cm/sec. Dist CCA 88.8/26.2 cm/sec. Prox ICA 69.5/18.6 cm/sec. Prox ICA 80.2/22.5 cm/sec. Mid ICA 102.1/29.1 cm/sec. Mid ICA 85.1/32.3 cm/sec. Dist ICA 95.6/27.8 cm/sec. Dist ICA 104.8/33.5 cm/sec. Rt. ICA/CCA = 1.0. Lt. ICA/CCA = 1.2. Prox ECA 90.4/5.6 cm/sec. Prox ECA 91.3/12.6 cm/sec. Rt. Vert. 41.3/9 cm/sec. Lt. Vert. 41.9/12.6 cm/sec. Right Extracranial There is intimal thickening but no significant atherosclerotic plaque noted in the right common carotid artery. There is heterogeneous, irregular atherosclerotic plaque noted in the right internal carotid artery. There is intimal thickening but no significant atherosclerotic plaque noted in the right external carotid artery. Antegrade flow is noted in the right vertebral artery. Left Extracranial There is intimal thickening but no significant atherosclerotic plaque noted in the left common carotid artery. There is intimal thickening but no significant atherosclerotic plaque noted in the left internal carotid artery. There is intimal thickening but no significant atherosclerotic plaque noted in the left external carotid artery. Antegrade flow is noted in the left vertebral artery. There is heterogeneous, irregular atherosclerotic plaque noted in the left bulb. Procedure Carotid Duplex 28972. Exam performed in department. Interpretation Summary Mild (<50%) stenosis right extracranial internal carotid. Mild (<50%) stenosis left extracranial internal carotid. Flow within the vertebral arteries is antegrade bilaterally. Ordering Physician: Melissa العراقي Referring Physician: Melissa العراقي Performed By: Shayna Moise RVT
== END ==
PROVIDERS: Family Provider Internal Medicine; PCP Internal Medicine; Referring Provider Internal Medicine; Visit Provider Internal Medicine
DX: I65.23 Occlusion and stenosis of bilateral carotid arteries (principal)
CPT/HCPCS: 93880

== ENCOUNTER → 2020-01-27 10:29 | Outpatient (CLI) | payer MEDICARE, SELFPAY ==
[2019-08-26 17:53] VITALS: BMI 20.1
== END ==
PROVIDERS: PCP Internal Medicine; Referring Provider Internal Medicine; Visit Provider Internal Medicine
DX: R55 Syncope and collapse (principal)
CPT/HCPCS: 84484

== ENCOUNTER → 2020-02-02 10:57 | Outpatient (CLI) | payer MEDICARE, SELFPAY ==
[2019-08-26 17:53] VITALS: BMI 20.1
--- NOTE | 2020-02-02 11:28 | CPS ---
Mr. Machado was in ED last night for SOB three aerosol given and started on Predisone 40mg. He did not take any meds today. He states he also uses a cane sometimes due to muscle weakness.
== END ==
PROVIDERS: PCP Internal Medicine; Referring Provider Internal Medicine; Visit Provider Internal Medicine
DX: R55 Syncope and collapse (principal)
CPT/HCPCS: 93225; 93226; 94618

== ENCOUNTER → 2020-03-22 06:25 | Outpatient (CLI) | payer MEDICARE, SELFPAY ==
[2019-08-26 17:53] VITALS: BMI 20.1
--- NOTE | 2020-03-22 10:13 | STRESSREP ---
Stress Test Report Exercise myocardial perfusion stress test. 74-year-old man with a history of chest pain. Stress protocol: Resting EKG demonstrates sinus bradycardia with a rate of 58 bpm normal intervals are noted. Resting blood pressure is 118/68 mmHg. The patient exercised according to the regular David protocol for a total duration of 4 minutes and 31 seconds. The maximum heart rate attained was 133 bpm which was 90% of maximum predicted heart rate the maximum workload was 6.4 metabolic equivalents. At rest there were no ST or T wave changes noted to suggest ischemia. The patient did develop a rate dependent left bundle branch block 128 seconds into the exercise. EKG changes can therefore not be interpreted. The patient was noted to be short of breath. During recovery into about 2 minutes the EKG changes returned back to baseline. No clinical angina was noted the test was terminated due to shortness of breath. The resting blood pressure was 118/68 with a peak blood pressure 148/60 mmHg. Myocardial perfusion protocol. 11.0 mCi of technetium 99m sestamibi was injected at rest. The patient exercised according to regular David protocol for 4-1/2 minutes. At peak exercise 36.0 mCi of technetium 99m sestamibi was injected stress images were obtained stress and rest images were reconstructed in comparing the short axis vertical long horizontal long axis. Gated images were also obtained. Perfusion SPECT analysis: Review of the stress images demonstrate mild reduction in perfusion noted in the mid inferior wall improving and rest suggesting a mild amount of mid inferior ischemia. The rest of the royal appear to be well perfused. Gated SPECT analysis: The gated ejection fraction is noted to be 63%. Conclusion: Abnormal exercise myocardial perfusion stress test with evidence of mid inferior ischemia at a low to moderate workload. Rate dependent bundle branch block noted. Moderate functional aerobic impairment.
== END ==
PROVIDERS: Family Provider Internal Medicine; PCP Internal Medicine; Referring Provider Internal Medicine; Visit Provider Internal Medicine
DX: I25.10 Atherosclerotic heart disease of native coronary artery without angina pectoris (principal)
CPT/HCPCS: 78452; 93017; A9500; A4216

== ENCOUNTER → 2020-03-24 12:13 | Outpatient (CLI) | payer MEDICARE, SELFPAY ==
[2020-03-24 11:10] VITALS: BMI 21.9
[2020-03-24 13:39] LABS: Absolute Lymphocyte Count 1.39 X10^3/uL (0.83-4.51); Absolute Neutrophil Count 3.3 X10^3/uL (2.0-7.7); Basophil# 0.03 X10^3/uL; Basophil% 0.6 % (0-1); Eosinophil# 0.12 X10^3/uL; Eosinophils% 2.3 % (0-5); Hematocrit 45.2 % (40-54); Hemoglobin 15.3 g/dL (13.0-16.5); Lymphocyte # 1.39 X10^3/ul (4.0); Lymphocyte % 26.4 % (19-41); Mean Corp Hgb Conc 33.8 g/dL (32-36); Mean Corpuscular Hgb 30.5 pg (27.0-32.0); Mean Platelet Vol. 10.6 fl (6.2-12.0); Monocyte# 0.45 X10^3/uL; Monocyte% 8.6 % (0-10); NRBC Flagged by Analyzer 0 % (0-5); Neutrophil # 3.25 X10^3/uL (2.7-7.7); Neutrophil % 61.7 % (47-70); Platelet Count 215 K/mm3 (150-450); RBC Distribution Width CV 12.5 % (11.6-14.6); Red Blood Count 5.02 M/mm3 (4.6-6.2); White Blood Count 5.3 K/mm3 (4.4-11.0)
[2020-03-24 14:07] LABS: Anion Gap 5 (5-15); BUN 19 mg/dL (7-18); BUN/Creat Ratio 18.4 RATIO (10-20); Calcium,Total 9.6 mg/dL (8.5-10.1); Chloride 103 mmol/L (98-107); Creatinine, Serum 1.03 mg/dL (0.70-1.30); EST Glomerular Filtration Rate 75 mL/min (>60); Est Glom Filt Rate - Afr Amer 91 mL/min (>60); Glucose 97 mg/dL (74-106); Potassium 4.4 mmol/L (3.5-5.1); Sodium Level 140 mmol/L (136-145)
== END ==
PROVIDERS: PCP Internal Medicine; Referring Provider Internal Medicine Cardiovascular Disease; Visit Provider Internal Medicine Cardiovascular Disease
DX: R94.39 Abnormal result of other cardiovascular function study (principal); R93.1 Abnormal findings on diagnostic imaging of heart and coronary circulation
CPT/HCPCS: 36415; 71046; 80048; 85025

== ENCOUNTER 2020-04-01 06:56 | Day surgery (SDC) | payer MEDICARE, SELFPAY ==
[2019-08-26 17:53] VITALS: BMI 20.1
[2020-03-24 11:10] VITALS: BMI 21.9
--- NOTE | 2020-03-24 11:57 | RAD_ITS ---
STUDY: X-RAY CHEST REASON FOR EXAM: Male, 74 years old. PRE HEART CATH TECHNIQUE: PA and lateral views of the chest. COMPARISON: None. FINDINGS: Cardiac silhouette unremarkable. Pulmonary vascularity unremarkable. Aorta calcified. No focal patchy airspace opacities. No pleural effusions. Slightly coarse lung markings. Upper abdomen unremarkable. Osseous structures intact with mild degenerative features. No pneumothorax. RAD/Chest PA and Lateral IMPRESSION: No acute cardiopulmonary findings Electronically Signed: Yemi Cardona DO at 12:20 EDT Tel , Service support ,
[2020-03-31 11:02] VITALS: BMI 21.9
--- NOTE | 2020-04-01 09:56 | CL.D_ITS ---
Patient Name: RUFINO VALADEZ V Study Date: 04/01/2020 Performing: Denys Flores MD Ht: 67 inches 170 cm : 1945 Wt: 141.3 lbs 64 kg Age: 74 Gender: male BSA: 1.74 PROCEDURE(S) PERFORMED [id number]/COR/LV CLINICAL PROFILE AND INDICATIONS Indications: Suspected CAD Heart Failure: None Stress/Imaging Date: 03/18/2020Stress Test with SPECT MPI: Positive Intermediate Risk CAD Presentations: No Sxs, no angina. CONCLUSIONS Normal LV size, wall motion,and systolic function Non obstructive coronary arteries Moderate disease in the LAD and Lcx. RECOMMENDATIONS Medical therapy DESCRIPTION OF PROCEDURE The patient arrived to the procedure lab. The risks and benefits of the procedure as well as a full d escription of our services here and current unavailability of surgical backup were fully explained to the patient and/or their significant other prior to the catheterization. The Timeout was completed, verifying the correct patient and procedure. The patient's procedural site was prepped and draped in the usual fashion. Local anesthetic was given subcutaneously to right radial region with Lidocaine 2% . Using a modified Seldinger technique, arterial access was obtained via the right radial artery, a 6 Fr sheath was inserted. Left Coronary Artery selective angiography was performed in multiple views u sing a 5 Fr. 4.0 [place] catheter. Right Coronary Artery selective angiography was then performed in mu ltiple views using a 5 Fr. 4.0 [place] catheter. Left Ventriculography was performed in RAYO projection using a 5 Fr. Pigtail catheter. LV to AO pullback pressures were then recorded.The arterial sheath was pulled and a TR Band was applied for hemostasis CORONARY ANGIOGRAPHY DOMINANCE: Right Dominant LEFT HEART ASSESSMENT Left Ventricular Ejection Fraction: by LV Gram 60 % Normal LV wall motion Normal Left Ventricular systolic function LEFT MAIN: Mild calcification LEFT ANTERIOR DESCENDING ARTERY: MID LAD: Moderate luminal irregularities up to 50% DISTAL LAD: 50 % Stenosis CIRCUMFLEX ARTERY: OM 1: Proximal - Moderate luminal irregularities up to 50% RIGHT CORONARY ARTERY: Mild luminal irregularities COMPLICATIONS No Complications PROCEDURE MEDICATIONS Fentanyl 50 mcg IV Versed 1 mg IV Oxygen: 2 L/min via nasal cannula Heparin diluted in 23cc Heparinized saline. Patient given 10cc IA of this solution. 04/01/2020 09:34: 23 IV Bolus: .9 NaCl 200 ml total 04/01/2020 09:45:32 SUMMARY OF HEMODYNAMIC DATA Time AIR REST ECG 07:41:01 AO 114/59 (80) SA 09:35:42 LV 105/0, 2 09:40:46 LV 106/-1, 3 09:40:53 LV 109/2, 6 09:41:30 LVp 112/0, 6 09:41:39 AOp 110/53 (76) 09:41:44 Signed By Denys Flores MD On 04/01/2020 09:55:39 Denys Flores MD
== END 2020-04-01 11:15 | disposition home or self-care (01) ==
LOC: CLSP 06:56
PROVIDERS: PCP Internal Medicine; Referring Provider Internal Medicine Cardiovascular Disease; Visit Provider Internal Medicine Cardiovascular Disease
DX: I25.10 Atherosclerotic heart disease of native coronary artery without angina pectoris (principal); R94.39 Abnormal result of other cardiovascular function study; R93.1 Abnormal findings on diagnostic imaging of heart and coronary circulation; I10 Essential (primary) hypertension; E78.5 Hyperlipidemia, unspecified; Z82.49 Family history of ischemic heart disease and other diseases of the circulatory system; Z87.891 Personal history of nicotine dependence
CPT/HCPCS: 93458; 99152; 99153; J7040; C1769; C1894; Q9967

== ENCOUNTER 2020-08-13 07:20 | Day surgery (SDC) | payer MEDICARE, SELFPAY ==
[2020-03-31 11:02] VITALS: BMI 21.9
[2020-08-13] VITALS (8 sets, daily range): BP systolic 103–120; BP diastolic 54–89; PULSE 47–62; RESP 14–16; TEMP 36.2–36.6; O2SAT 98–100; BMI 20.9
--- NOTE | 2020-08-13 07:48 | HP.PCM_ITS ---
History of Present Illness Date of Admission: 08/13/20 The patient is a 74 year old M presents for screening colonoscopy. His last screening colonoscopy was 5 years ago and a polyp was identified and he was recommended to have a repeat in 5 years. He denies any abdominal pain or blood in his stool. Denies family history of colon cancer. Past Medical/Surgical History - Planned Operation Planned Operative Procedure/s: colonoscopy Date of Operative Procedure: 08/13/20 Permit Signed: No S.O.S: No Is This Patient Having a Total Joint: No - Previous Hospitalizations/Surgeries HX Hospitalizations: No HX of Surgeries: left hand, trigger finger. colonoscopy x2. TURP 07/25/19. cystoscopy,evacuation of clots 08/2019. heart cath 03/2020 Any Problems With Anesthesia: No You/Your Family Experience Fever (Hyperthermia) With Anes: No Cholinesterase deficiency: No - Cardiovascular Hx Chest Pain within Last 2 months: No Hx of Irregular Heartbeat and/or Afib: Yes - LBBB, Dr Cedeno. last visit 03/2020 Hx Heart Attack: No Hx Congestive Heart Failure: No Hx Rheumatic Fever: No Hx Hypertension: Yes - states controlled with med Hx Internal Defibrillator: No Hx Pacemaker: No Hx Cardiac Catheterization: Yes - 03/[facility] What [facility] was [facility] heart cath performed: [facility] Date of last Heart Cath: 03/2020 Hx Cardiac Surgery/Stents/Etc.: No Hx Stress Test: Yes - echo 09/2019, stress 03/2020 HX Edema: No Hx Pain in Legs when Walking/Leg Cramps: No - . - Respiratory Chronic Cough: No HX of Shortness of Breath: No - denies Hoarseness: No Hx Chronic Obstructive Pulmonary Disease (COPD): No Hx Asthma: No Hx Emphysema: No Hx Sleep Apnea: No CPAP: No BIPAP: No Hx Oxygen Use at Home: No Hx Respiratory Tract Infection/Cold (presently): No Do You Snore Loudly (louder than talking or can be heard): No Do You Often Feel Tired/ Fatigued/ Sleepy Dring Daytime?: No Has Anyone Observed You Stop Breathing During Sleep?: No Result (for STOP score): Negative Hx Smoking: Yes - quit Smoking Status: Former smoker - Gastrointestinal Hx Gastroesophageal Reflux: No Controlled With Meds: No Hx Gastrointestinal Disorders: No Hx Gastrointestinal Bleed: No Hx Ulcer: No Hx Hiatal Hernia: No Difficulty Chewing/Swallowing: No Recent Onset of Swallowing Problems: No Special diet followed at home: No Hx Unplanned Weight Loss of 20#: No HX Unplanned Weight Gain of 20#: No - Neurological Hx Seizures: No HX Syncope/Blackout Spells/Unconsciousness: Yes - syncope episode 01/2020 Hx CVA/Stroke: No Hx Transient Ischemic Attacks (TIA): No Hx Multiple Sclerosis: No Hx Parkinson's Disease: No Hx Head/Neck Injury: No Hx Headaches: No Hx Back Injury/Pain: No Recent Onset of Speech Difficulty: No Restless Legs: No Does patient have nerve stimulator: No - Blood Disorder Hx Leukemia: No Bleeding Tendencies: No - aspirin. stop 5 days preop Hx Deep Vein Thrombosis: No Hx High Cholesterol: Yes - on med Blood Transmitted Disease: No Hx Hepatitis: No Hx Cirrhosis: No Hx Anemia: No Hx Blood Disorders: No - Genitourinary Hx Renal Disease: No - enlarged prostate/TURP Hx Dialysis: No - Musculoskeletal Hx Arthritis: No Hx Rheumatoid Arthritis: No Hx Gout: No Recent Onset of an Orthopedic Problem: No - Endocrine Hx Diabetes: No Thyroid Disease: No Hx Steroid Therapy: No - Psycho/Social Hx Substance Use: No Hx Alcohol Use: No Hx Anxiety: No Hx Depression: No Mental Illness: No Hx Dementia: No - Miscellaneous Hx Cancer: Yes - skin ca , removed Recent Exposure to Contagious Disease: No Active MRSA: No Hx of C-Diff: No Any Loose Teeth: No Allergies No Known Allergies Allergy (Verified 08/05/20 14:41) Maternal Family History: Family History (Last Reviewed 03/24/20 @ 11:[address] Denys Flores MD) Mother CAD (coronary artery disease) Heart disease Hypertension Hyperlipidemia Sister CAD (coronary artery disease) Father ETOH abuse Sister Breast cancer No pertinent history - Discharge Is Pt Admitted From a Jail, or a Intermediate: No Who Could Help: After D/C, Where Do you Plan to Go: Return Home - From the PAT History Number of Risk Factors: 1 - Physical Exam Vitals/I&O's: Vital Signs Temp Pulse Resp BP Pulse Ox 97.2 F L 62 14 120/70 100 08/13/20 07:35 08/13/20 07:35 08/13/20 07:35 08/13/20 07:35 08/13/20 07:35 Weight: 133 lb 13.129 oz Body Mass Index (BMI) 20.9 General: Alert, Oriented x3 Lungs: Normal air movement Cardiovascular: Regular rate, Regular Rhythm Abdomen: Soft, Non Tender, Non-Distended Assessment/Plan All Active Problems (Last Updated 04/01/20 @ 11:57 by Disha Sandoval) Abnormal nuclear stress test (Acute) Acute urinary retention (Resolved) Hematuria (Resolved) 74-year-old male screening colonoscopy I explained endoscopy in detail to the patient. I explained the risks including but not limited to stroke or heart attack with anesthesia, perforation of the GI tract, bleeding, infection. I explained that any of these could necessitate further emergency surgery. The patient understands and all questions were answered sufficiently. The patient wishes to proceed with procedure. We discussed the current risks associated with COVID-19. While it is understood that there is a community spread of COVID-19, the risk of david COVID-19 while at [facility] ([facility]) is very low; however, the risk cannot be completely mitigated because of the community spread of the disease. We discussed in detail the risk of exposure to and/or potential harm posed by the COVID-19 virus with having a surgery/procedure at this time versus the risk of delaying the surgery/procedure. It is not possible to know either the risk of delaying the surgery or procedure or chance of getting an infection with perfect accuracy, but a joint decision was made to proceed at this time with the scheduled surgery/procedure as indicated on the consent form. Patient was notified that we will need to comply with any screening or testing [facility] wishes to perform or that surgery may be delayed for any positive results. Primitivo Delatorre MD Pager: [facility] [address] [place] [address], [address] [place] [address] Office: Surgery Risks - Colonoscopy Risks Include but are not Limited To: Risks include but are not limited to: Bleeding, perforation requiring further surgery, inability to complete colonoscopy requiring barium enema.
[2020-08-13] MEDS: Lactated Ringers 1,000 ML 100 ML IV (07:50)
--- NOTE | 2020-08-13 08:34 | OP.COLON_ITS ---
Patient Name: Gerardo Vigil Procedure Date: 08/13/2020 7:47 AM Date of : 1945 Age: 74 Procedure: Colonoscopy Indications: Surveillance: Personal history of adenomatous polyps on last colonoscopy 5 years ago Providers: Primitivo Delatorre MD Referring MD: Melissa العراقي Medicines: Monitored Anesthesia Care Patient Profile: This is a 74 year old male. Refer to note in patient chart for documentation of history and physical. Last Colonoscopy: 5 years ago. Complications: No immediate complications. Estimated blood loss: Minimal. Procedure: Pre-Anesthesia Assessment: - Prior to the procedure, a History and Physical was performed, and patient medications and allergies were reviewed. The patient's tolerance of previous anesthesia was also reviewed. The risks and benefits of the procedure and the sedation options and risks were discussed with the patient. All questions were answered, and informed consent was obtained. Prior Anticoagulants: The patient has taken no previous anticoagulant or antiplatelet agents. After reviewing the risks and benefits, the patient was deemed in satisfactory condition to undergo the procedure. After I obtained informed consent, the scope was passed under direct vision. Throughout the procedure, the patient's blood pressure, pulse, and oxygen saturations were monitored continuously. The colonoscope was introduced through the anus and advanced to the cecum, identified by appendiceal orifice and ileocecal valve. The colonoscopy was performed without difficulty. The patient tolerated the procedure well. The quality of the bowel preparation was good. Scope In: 8:08:12 AM Scope Withdrawal Time 0 hours 6 minutes 17 seconds Scope Out: 8:27:00 AM Total Procedure Duration Time 0 hours 18 minutes 48 seconds Findings: The entire examined colon appeared normal on direct and retroflexion views. Impression: - The entire examined colon is normal on direct and retroflexion views. - No specimens collected. Recommendation: - Discharge patient to home. - Resume previous diet. - Continue present medications. - Repeat colonoscopy is not recommended due to current age (66 years or older) for screening purposes. Procedure Code(s): --- Professional --- G0105, Colorectal cancer screening; colonoscopy on individual at high risk Diagnosis Code(s): --- Professional --- Z86.010, Personal history of colonic polyps CPT copyright 2017 [employer]. All rights reserved. The codes documented in this report are preliminary and upon auditing coder review may be revised to meet current compliance requirements. Primitivo Delatorre MD 08/13/2020 8:34:37 AM This report has been signed electronically. Number of Addenda: 0 Note Initiated On: 08/13/2020 7:47 AM
--- NOTE | 2020-08-13 08:35 | OP.CCLET_ITS ---
08/13/2020 Melissa العراقي Re : Colonoscopy procedure for Gerardo العراقي This procedure was performed on Thursday, August 13, 2020. My impressions and recommendations are as follows: Impressions : - The entire examined colon is normal on direct and retroflexion views. - No specimens collected. Recommendations : - Discharge patient to home. - Resume previous diet. - Continue present medications. - Repeat colonoscopy is not recommended due to current age (66 years or older) for screening purposes. My findings are described in the full procedure note, which is enclosed. If I can be of further assistance, please feel free to contact me at Doctor phone number(s): , Work: . Sincerely, Primitivo Delatorre MD 08/13/2020 8:34:37 AM This report has been signed electronically.
== END 2020-08-13 09:50 | disposition home or self-care (01) ==
LOC: EN 07:20 → AC 07:20
PROVIDERS: Anesthesiology; PCP Internal Medicine; Referring Provider Internal Medicine; Visit Provider Surgery
PROC: 0DJD8ZZ Inspection of Lower Intestinal Tract, Via Natural or Artificial Opening Endoscopic (ICD-10-PCS; CPT 45378; principal; 2020-08-13 08:25)
DX: Z12.11 Encounter for screening for malignant neoplasm of colon (principal); Z86.010 Personal history of colon polyps; Z11.59 Encounter for screening for other viral diseases; I10 Essential (primary) hypertension; I44.7 Left bundle-branch block, unspecified; E78.00 Pure hypercholesterolemia, unspecified; Z85.828 Personal history of other malignant neoplasm of skin; Z79.82 Long term (current) use of aspirin; Z79.899 Other long term (current) drug therapy; Z87.891 Personal history of nicotine dependence
CPT/HCPCS: G0105; 87635; C9803; J7120; J2405; U0003

== ENCOUNTER → 2020-12-13 10:55 | Outpatient (CLI) | payer MEDICARE, SELFPAY ==
[2020-09-29 12:53] VITALS: BMI 21.9
[2020-12-13 13:22] LABS: PSA,Total - Annual Screen 2.46 ng/mL (0.00-4.00)
== END ==
PROVIDERS: PCP Internal Medicine; Visit Provider Urology
DX: Z12.5 Encounter for screening for malignant neoplasm of prostate (principal)
CPT/HCPCS: 36415; 84153; G0103

== ENCOUNTER → 2020-12-15 09:46 | Outpatient (CLI) | payer MEDICARE, SELFPAY ==
[2020-09-29 12:53] VITALS: BMI 21.9
--- NOTE | 2020-12-15 10:01 | CDU_ITS ---
Reason For Study: BILATERAL CAROTID STENOSIS Rt. Velocities/BP Lt. Velocities/BP Prox CCA 103.8/20.3 cm/sec. Prox CCA 125.3/34.0 cm/sec. Mid CCA 105.1/25.6 cm/sec. Mid CCA 90.6/19.4 cm/sec. Dist CCA 103.8/26.9 cm/sec. Dist CCA 136.3/37.6 cm/sec. Prox ICA 90.4/22.8 cm/sec. Prox ICA 84.6/30.6 cm/sec. Mid ICA 107.6/27.8 cm/sec. Mid ICA 92.0/25.7 cm/sec. Dist ICA 97.8/30.2 cm/sec. Dist ICA 112.5/46.8 cm/sec. Rt. ICA/CCA = 107.6/105.1=1.0. Lt. ICA/CCA = 112.5/136.5=0.8. Prox ECA 112.5/10.6 cm/sec. Prox ECA 96.1/13.9 cm/sec. Rt. Vert. 40.9/7.8 cm/sec. Lt. Vert. 42.4/11.9 cm/sec. Right Extracranial There is homogeneous, smooth atherosclerotic plaque noted in the right common carotid artery. There is intimal thickening but no significant atherosclerotic plaque noted in the right internal carotid artery. There is intimal thickening but no significant atherosclerotic plaque noted in the right external carotid artery. Antegrade flow is noted in the right vertebral artery. There is heterogeneous, irregular atherosclerotic plaque noted in the left bulb. Left Extracranial There is homogeneous, smooth atherosclerotic plaque noted in the left common carotid artery. There is intimal thickening but no significant atherosclerotic plaque noted in the left internal carotid artery. There is intimal thickening but no significant atherosclerotic plaque noted in the left external carotid artery. Antegrade flow is noted in the left vertebral artery. There is heterogeneous, irregular atherosclerotic plaque noted in the left bulb. Interpretation Summary Irregular calcific plaque at the distal right common carotid and proximal right internal and external carotid artery with shadowing <50% stenosis right internal carotid <50% stenosis right external carotid No significant plaque at the proximal left internal carotid artery <50% stenosis left internal carotid artery <50% stenosis left exterrnal carotid artery Minimally increased velocity distal left common carotid, not clinically significant Patent and antegrade vertebrals bilaterally No clinically significant change from the previous examination of December 29, 2019 Ordering Physician: Melissa العراقي Referring Physician: Melissa العراقي Performed By: Ledy Hope, HANDY, RVT
== END ==
PROVIDERS: PCP Internal Medicine; Referring Provider Internal Medicine; Visit Provider Internal Medicine
DX: I65.23 Occlusion and stenosis of bilateral carotid arteries (principal)
CPT/HCPCS: 93880

== ENCOUNTER 2021-01-06 14:04 | Outpatient (RCR) | payer MEDICARE, SELFPAY ==
[2020-09-29 12:53] VITALS: BMI 21.9
[2021-01-06] MEDS: COVID-19 VACC, MRNA(PFIZER)/PF 30 MCG/0.3 ML SYRINGE IM (12:37)
[2021-01-27] MEDS: COVID-19 VACC, MRNA(PFIZER)/PF 30 MCG/0.3 ML SYRINGE IM (12:27)
== END 2021-01-06 23:59 ==
LOC: IMMUN 14:04
PROVIDERS: PCP Internal Medicine; Visit Provider Family Medicine
DX: Z23 Encounter for immunization (principal)
CPT/HCPCS: 0001A; 0002A

== ENCOUNTER 2022-01-30 11:01 | Outpatient (CLI) | payer MEDICARE, SELFPAY ==
--- NOTE | 2022-01-30 11:08 | CDU_ITS ---
Reason For Study: carotid artery stenosis Rt. Velocities/BP Lt. Velocities/BP Prox CCA 102.1/23.9 cm/sec. Prox CCA 96.0/21.6 cm/sec. Mid CCA 107.3/31.7 cm/sec. Mid CCA 116.8/28.2 cm/sec. Dist CCA 100.8/23.9 cm/sec. Dist CCA 98.6/7.3 cm/sec. Prox ICA 79.9/27.8 cm/sec. Prox ICA 77.2/18.5 cm/sec. Mid ICA 107.3/31.7 cm/sec. Mid ICA 70.7/21.1 cm/sec. Dist ICA 88.2/30.8 cm/sec. Dist ICA 81.1/28.9 cm/sec. Rt. ICA/CCA = 107.3/107.3=1.0. Lt. ICA/CCA = 81.1/116.8=0.7. Prox ECA 111.2/14.7 cm/sec. Prox ECA 97.6/19.4 cm/sec. Rt. Vert. 59.5/9.9 cm/sec. Lt. Vert. 38.1/9.4 cm/sec. Right Extracranial There is homogeneous, smooth atherosclerotic plaque noted in the right common carotid artery. There is intimal thickening but no significant atherosclerotic plaque noted in the right internal carotid artery. There is intimal thickening but no significant atherosclerotic plaque noted in the right external carotid artery. Antegrade flow is noted in the right vertebral artery. There is heterogeneous, irregular atherosclerotic plaque noted in the right bulb. Left Extracranial There is homogeneous, smooth atherosclerotic plaque noted in the left common carotid artery. There is intimal thickening but no significant atherosclerotic plaque noted in the left internal carotid artery. There is intimal thickening but no significant atherosclerotic plaque noted in the left external carotid artery. Antegrade flow is noted in the left vertebral artery. There is heterogeneous, irregular atherosclerotic plaque noted in the left bulb. Procedure Carotid Duplex [id number]. This is a Carotid Duplex examination using B-mode, color flow and specral Doppler. Exam performed in department. VL/Carotid Duplex Ultrasound Interpretation Summary Mild (<50%) stenosis right extracranial internal carotid. No significant athero sclerotic plaque or stenosis noted in the left internal carotid artery. Flow within the vertebral a rteries is antegrade bilaterally. Heterogeneous, irregular atherosclerotic plaque is noted in the ca rotid bulbs bilaterally, which does not appear hemodynamically significant. Ordering Physician: Melissa العراقي Referring Physician: Melissa العراقي Performed By: Ledy Hope, HANDY, RVT
== END 2022-01-30 23:59 | disposition home or self-care (01) ==
LOC: CVS 11:04
PROVIDERS: PCP Internal Medicine; Referring Provider Internal Medicine; Visit Provider Internal Medicine
DX: I65.23 Occlusion and stenosis of bilateral carotid arteries (principal)
CPT/HCPCS: 93880

== ENCOUNTER → 2022-12-14 | Outpatient (CLI) | payer MEDICARE, SELFPAY ==
[2022-12-14 16:25] LABS: PSA,Total - Annual Screen 2.08 ng/mL (0.00-4.00)
== END | disposition home or self-care (01) ==
LOC: LAB 13:39
PROVIDERS: PCP Internal Medicine; Referring Provider Registered Nurse; Visit Provider Registered Nurse
DX: Z12.5 Encounter for screening for malignant neoplasm of prostate (principal)
CPT/HCPCS: 36415; 84153; G0103

== ENCOUNTER → 2023-03-02 | Outpatient (CLI) | payer MEDICARE, SELFPAY ==
--- NOTE | 2023-03-02 10:58 | CDU_ITS ---
Reason For Study: Atherosclerosis Rt. Velocities/BP Lt. Velocities/BP Prox CCA 112.5/26.7 cm/sec. Prox CCA 101.6/23.0 cm/sec. Mid CCA 108.9/26.7 cm/sec. Mid CCA 101.6/30.3 cm/sec. Dist CCA 96.3/25.9 cm/sec. Dist CCA 84.2/22.6 cm/sec. Prox ICA 80.9/22.6 cm/sec. Prox ICA 93.0/30.3 cm/sec. Mid ICA 71.0/21.5 cm/sec. Mid ICA 94.1/30.2 cm/sec. Dist ICA 96.5/29.0 cm/sec. Dist ICA 99.0/33.9 cm/sec. Rt. ICA/CCA = 0.9. Lt. ICA/CCA = 1.0. Prox ECA 128.9/19.4 cm/sec. Prox ECA 119.8/19.4 cm/sec. Rt. Vert. 37.2/7.5 cm/sec. Lt. Vert. 58.4/11.8 cm/sec. Right Extracranial There is homogeneous, smooth atherosclerotic plaque noted in the right common carotid artery. There is heterogeneous, irregular atherosclerotic plaque noted in the right internal carotid artery. There is homogeneous, smooth atherosclerotic plaque noted in the right external carotid artery. Antegrade flow is noted in the right vertebral artery. Left Extracranial There is homogeneous, smooth atherosclerotic plaque noted in the left common carotid artery. There is heterogeneous, irregular atherosclerotic plaque noted in the left internal carotid artery. There is heterogeneous, irregular atherosclerotic plaque noted in the left external carotid artery. Antegrade flow is noted in the left vertebral artery. Procedure Carotid Duplex [id number]. This is a Carotid Duplex examination using B-mode, color flow and specral Doppler. The exam was diagnostic. Exam performed in department. VL/Carotid Duplex Ultrasound Interpretation Summary Minimal irregular plaque at the proximal right internal carotid artery with les s than 50% stenosis Less than 50% stenosis right external carotid artery Minimal irregular plaque at the proximal left internal carotid artery with less than 50% stenosis Less than 50% stenosis left external carotid artery Patent antegrade vertebral arteries bilaterally No significant change from the previous examination of January 30, 2022 Ordering Physician: Melissa العراقي Referring Physician: Melissa العراقي Performed By: Javier Monk RVT
== END | disposition home or self-care (01) ==
LOC: CVS 10:57
PROVIDERS: PCP Internal Medicine; Referring Provider Internal Medicine; Visit Provider Internal Medicine
DX: I65.23 Occlusion and stenosis of bilateral carotid arteries (principal)
CPT/HCPCS: 93880

== ENCOUNTER → 2023-03-14 | Outpatient (CLI) | payer MEDICARE, SELFPAY ==
--- NOTE | 2023-03-14 13:21 | CT_ITS ---
STUDY: CT ABDOMEN AND PELVIS WITH CONTRAST REASON FOR EXAM: Male, 77 years old. Abdominal pain, RLQ pain for 6 weeks. Prior TURP. RADIATION DOSAGE (If Supplied By Facility): CTDIvol = ( 11.91 ) mGy, DLP = ( 518.29 ) mGycm TECHNIQUE: Transaxial images were obtained from the dome of the diaphragm to the symphysis pubis with oral contrast. Oral and amp; IV Readi-CAT and amp; 100mL Isovue-300 was administered. Sagittal and coronal images were reconstructed. Individualized dose optimization techniques were used for this CT. COMPARISON: Comparison is made with prior study July 08, 2019. FINDINGS: The visualized lung bases are unremarkable. The visualized portions of the heart are within normal limits. Normal liver. Normal gallbladder and extrahepatic biliary system. Normal spleen. Normal pancreas. Normal bilateral adrenal glands. 2 cm cyst in the lower pole of the right kidney. Normal left kidney. Normal visualized stomach. Normal small intestine. Normal colon. The appendix is visualized and appears normal. There is diffuse atherosclerotic calcification of the abdominal aorta, without a demonstrated aneurysm. Normal inferior vena cava. Normal retroperitoneum. Diffuse bladder wall thickening. Stable small bladder diverticula bilaterally. Prostatic enlargement. The prostate measures 4.1 cm x 4.7 cm. This causes indentation of the bladder base. Prostatic calcifications are seen anteriorly. Normal abdominal wall. There are diffuse degenerative changes of the visualized lumbar spine. CT/Abdomen/Pelvis WITH Contrast IMPRESSION: Prostatic enlargement with indentation of the bladder base. Diffuse bladder wall thickening with the stable bilateral bladder diverticula. Stable right renal cyst. Electronically Signed: Constantino Haines MD at 15:42 EDT ,
[2023-03-14 13:51] LABS: CREATININE FINGERSTICK 0.9 mg/dL (0.70-1.30); EGFR FINGERSTICK > 60.0000 mL/min (>60)
== END | disposition home or self-care (01) ==
LOC: CT 13:19
PROVIDERS: PCP Internal Medicine; Referring Provider Internal Medicine; Visit Provider Internal Medicine
DX: R10.31 Right lower quadrant pain (principal)
CPT/HCPCS: 74177; Q9967

== ENCOUNTER 2023-04-27 16:20 | Emergency (ER) | payer MEDICARE, SELFPAY ==
[2023-04-27 16:21] VITALS: BP 156/59; PULSE 41; RESP 16; TEMP 36.3; O2SAT 100; BMI 22.8
[2023-04-27 16:45] VITALS: BP 135/53; PULSE 60; RESP 18; O2SAT 99
--- NOTE | 2023-04-27 16:48 | EX.ED.DYSGE1 ---
HPI History of Present Illness Chief Complaint: Dizziness Informant: patient Onset/Context/Timing Onset: Today Narrative Narrative: Patient presents secondary to vertigo. He states he started having a few episodes where he felt the room was spinning. When he went to the kitchen and leaned down to car pick up driver a bottle under the sink he said everything started spinning. He has had similar symptoms previously. He denies chest pain or palpitations. PFSH PFS Medical History Abnormal Heart Score CT Abnormal nuclear stress test Atherosclerosis of coronary artery without angina pectoris BPH (benign prostatic hyperplasia) Bradycardia Diverticulosis Erectile dysfunction Essential (primary) hypertension Hearing loss Hemorrhoid Hyperlipidemia Left bundle branch block (LBBB) Osteoarthritis Syncope (01/27/20) Tobacco use Home Medications atorvastatin 20 mg tablet 20 mg PO QHS cholesterol 07/23/19 [History Last Taken Unknown] aspirin 81 mg tablet,delayed release (Adult Low Dose Aspirin) 81 mg PO QDAY #30 tabs 03/24/20 [Rx Last Taken 04/01/20] cholecalciferol (vitamin D3) 50 mcg (2,000 unit) capsule 2,000 unit PO DAILY supplement 08/05/20 [History Last Taken Unknown] Shingrix (PF) 50 mcg/0.5 mL intramuscular suspension, kit (varicella-zoster gE-AS01B (PF)) 0.5 ml IM ONCE #1 ea 09/23/20 [Clinic Last Taken Unknown] atenolol 25 mg tablet 12.5 mg PO Q OTHER DAY heart 10/19/21 [History Last Taken Unknown] meclizine 25 mg tablet 25 mg PO TID PRN dizziness #20 tabs 04/27/23 [Rx Last Taken Unknown] Allergy/AdvReac Type Severity Reaction Status Date / Time No Known Allergies Allergy Verified 04/27/23 16:22 Family History Mother CAD (coronary artery disease) Heart disease Hypertension Hyperlipidemia Sister CAD (coronary artery disease) CABG, Carotid Disease Father ETOH abuse Sister Breast cancer Surgical History History of cataract surgery History of colonoscopy History of left heart catheterization (04/01/20) History of transurethral resection of prostate Social History Smoking Status: Former smoker how long ago did patient quit smokin years ago alcohol intake: never substance use type: does not use caffeine: No ROS ROS ED Constitutional Constitutional ED: Denies chills or fever(s) Eyes Eyes: Denies change in vision or discharge from eye(s) ENT ENT ED: Denies discharge from eye(s), rhinorrhea or sore throat Cardiovascular Cardiovascular: Denies chest pain or palpitations Respiratory/Chest Respiratory/Chest: Denies cough or dyspnea Gastrointestinal Gastrointestinal: Denies abdominal pain, nausea or vomiting Genitourinary Genitourinary ED: Denies dysuria Musculoskeletal Musculoskeletal: Denies back pain or extremity pain Integumentary Denies Abrasions or rash Neurologic Neurologic: Denies headache(s) or weakness Psychiatric Psychiatric: Denies anxiety or depression Allergic/Immunologic Allergic/Immunologic ED: Denies lip swelling or urticaria EXAM Physical Exam Const Vital Signs: 04/27/23 16:21 04/27/23 16:45 04/27/23 16:46 Temperature 97.4 F L Temperature Source Temporal Pulse Rate 41 L 60 Respiratory Rate 16 18 Respiratory Effort Normal Non-Labored Respiratory Pattern Normal Blood Pressure 156/59 H 135/53 H Blood Pressure Mean 91 80 Pulse Ox 100 99 Oxygen Delivery Method Room Air Room Air Positive well nourished and well developed General Appearance ED: well developed HEENT Reports normocephalic and head/scalp atraumatic Eyes PERRL and EOMs intact bilaterally Neck supple Chest Wall inspection of chest normal and palpation of chest normal Resp normal respiratory effort and clear to auscultation bilaterally Cardio regular rate and regular rhythm GI normal to inspection, nondistended, normoactive bowel sounds Palpation: soft Extremity normal to inspection Neuro oriented x3 and no sensory deficits noted Neuro Narrative: Normal finger-nose testing. Sensorium / Orientation: alert Motor Exam: strength 5/5 throughout Psych mental status grossly normal Skin no rashes or lesions noted MDM MDM MDM Narrative Medical decision making narrative: Patient placed on shelter monitor. EKG obtained to evaluate for cardiac arrhythmia/ischemia. Labwork obtained to evaluate for leukocytosis, anemia, and electrolyte derangement. Patient's exam findings and history are all consistent with peripheral vertigo. He is given p.o. Antivert. Lab Data Attestation: I reviewed the patient's lab results. Labs: Laboratory Results - last 24 hr 04/27/23 04/27/23 16:50 16:50 WBC 6.8 RBC 4.82 Hgb 14.8 Hct 43.4 MCV 90.0 MCH 30.7 MCHC 34.1 RDW Std Deviation 38.6 RDW Coeff of Treva 11.8 Plt Count 203 MPV 10.1 Immature Gran % (Auto) 0.400 Neut % (Auto) 73.0 H Lymph % (Auto) 17.1 L [place] % (Auto) 7.8 Eos % (Auto) 1.3 Baso % (Auto) 0.4 Absolute Neuts (auto) 4.9 Absolute Lymphs (auto) 1.16 Nucleated RBC % 0 Sodium 139 Potassium 4.1 Chloride 105 Carbon Dioxide 31.0 Anion Gap 3 L BUN 16 Creatinine 0.96 Estim Creat Clear Calc 61.20 Est GFR (MDRD) Af Amer 97 Est GFR (MDRD) Non-Af 81 BUN/Creatinine Ratio 16.6 Glucose 150 H Calcium 8.9 EKG Initial EKG: Attestation: I personally reviewed and interpreted this EKG as follows: Interpretation: Sinus Bradycardia (Sinus bradycardia 57 bpm. PAC noted. No acute ischemia.) Treatment and Re-Evaluation :: CBC and chemistry studies are unremarkable. EKG is sinus bradycardia with no acute findings. He does have a history of bradycardia. On repeat evaluation patient does report improvement in his symptoms. He states when he turns his head rapidly he still does feel slightly dizzy. Patient be given a prescription for Antivert as well as instructions for Jami maneuvers. He states he has done these at home in the past. Return instructions provided. Discharge Plan Triage Chief Complaint: Dizziness ED Provider: Kaya Willoughby Dx/Rx/DC Orders Clinical Impression: Vertigo Instructions: ED BPV Vertigo Prescriptions: New meclizine 25 mg tablet 25 mg PO TID PRN (Reason: dizziness) Qty: 20 0RF No Action aspirin [Adult Low Dose Aspirin] 81 mg tablet,delayed release (DR/EC) 81 mg PO QDAY Qty: 30 3RF Shingrix (PF) 50 mcg/0.5 mL suspension for reconstitution 0.5 ml IM ONCE Qty: 1 0RF atenolol 25 mg tablet 12.5 mg PO Q OTHER DAY Rx Instructions: every other day atorvastatin 20 MG tablet 20 mg PO QHS cholecalciferol (vitamin D3) 2,000 UNIT capsule 2,000 unit PO DAILY Primary Care Provider: Melissa العراقي Referrals: Melissa العراقي, DO [Primary Care Provider] - 3-5 Days if not improving Disposition Disposition: Home, Self Care
[2023-04-27] MEDS: Meclizine HCl 25 MG Tablet PO (16:55)
[2023-04-27 17:04] LABS: Absolute Lymphocyte Count 1.16 X10^3/uL (0.83-4.51); Absolute Neutrophil Count 4.9 X10^3/uL (2.0-7.7); Basophil# 0.03 X10^3/uL; Basophil% 0.4 % (0-1); Eosinophil# 0.09 X10^3/uL; Eosinophils% 1.3 % (0-5); Hematocrit 43.4 % (40-54); Hemoglobin 14.8 g/dL (13.0-16.5); Lymphocyte # 1.16 X10^3/ul (0.83-4.51); Lymphocyte % 17.1 % (19-41); Mean Corp Hgb Conc 34.1 g/dL (32-36); Mean Corpuscular Hgb 30.7 pg (27.0-32.0); Mean Platelet Vol. 10.1 fl (6.2-12.0); Monocyte# 0.53 X10^3/uL; Monocyte% 7.8 % (0-10); NRBC Flagged by Analyzer 0 % (0-5); Neutrophil # 4.94 X10^3/uL (2.7-7.7); Platelet Count 203 K/mm3 (150-450); RBC Distribution Width CV 11.8 % (11.6-14.6); RBC Distribution Width SD 38.6 fl (35.1-43.9); Red Blood Count 4.82 M/mm3 (4.6-6.2); White Blood Count 6.8 K/mm3 (4.4-11.0)
[2023-04-27 17:13] LABS: Anion Gap 3 (5-15); BUN 16 mg/dL (7-18); BUN/Creat Ratio 16.6 RATIO (10-20); Calcium,Total 8.9 mg/dL (8.5-10.1); Chloride 105 mmol/L (98-107); Creatinine, Serum 0.96 mg/dL (0.70-1.30); EST Glomerular Filtration Rate 81 mL/min (>60); Est Glom Filt Rate - Afr Amer 97 mL/min (>60); Glucose 150 mg/dL (74-106); Potassium 4.1 mmol/L (3.5-5.1); Sodium Level 139 mmol/L (136-145)
[2023-04-27 17:53] VITALS: BP 114/76; PULSE 67; RESP 15; O2SAT 99
== END 2023-04-27 17:54 | disposition home or self-care (01) ==
PROVIDERS: Emergency Provider Emergency Medicine; PCP Internal Medicine; Visit Provider Emergency Medicine
DX: R42 Dizziness and giddiness (principal); I25.10 Atherosclerotic heart disease of native coronary artery without angina pectoris; Z87.891 Personal history of nicotine dependence; E78.5 Hyperlipidemia, unspecified; I10 Essential (primary) hypertension; Z79.899 Other long term (current) drug therapy; Z79.82 Long term (current) use of aspirin
CPT/HCPCS: 80048; 85025; 93005; 96360; 99285; J7040; A4216

== ENCOUNTER 2023-08-15 10:54 | Observation (INO) | payer MEDICARE, SELFPAY ==
[2023-08-15] VITALS (15 sets, daily range): BP systolic 118–145; BP diastolic 59–87; PULSE 57–91; RESP 16–18; TEMP 36.3–37; O2SAT 95–100; BMI 22.1
--- NOTE | 2023-08-15 | PROS_PTH ---
PATIENT: RUFINO VALADEZ LOC: MS3 U#:[id number] AGE/SX: 77/M [place] [facility] [place] [place]08/15/[address]: Dr. Flash Becker MD : [id number] BED: 1 DIS: 08/16/2023 SPEC #: [id number] RECD: 08/15/23 12:05 STATUS: HARJIT CARLOSMiky #: [id number] RODRIGO: 08/15/23 00:[address]: Flash Becker DEPT: SURGICAL PATHOLOGY RECD BY: Viktor Griffin ENTERED: 08/15/23 13:14 SP TYPE: TURP OTHR DR: Dr. Melissa العراقي, DO Tissues: Prostate, NOS Procedures: Surgery Specimen Level IV HEADER OPERATION: Cysto, transurethral resection prostate, Olympus PRE-OP DIAGNOSIS: Bladder neck obstruction TISSUE SUBMITTED: Prostate tissue MICROSCOPIC DIAGNOSIS Prostate, transurethral resection: Benign nodular hyperplasia. Chronic inflammation. AM:[place] 08/16/2023 MICROSCOPIC DESCRIPTION Slides are reviewed. GROSS DESCRIPTION Received is one container labeled with the patient's name and designated prostate tissue. The specimen consists of multiple irregular fragments of pink-morgan, rubbery, soft tissue that in aggregate weigh 0.6 gm and measure in aggregate 2.0 x 2.0 x 0.2 cm. The entire specimen is submitted in one cassette. / AM:[place] 08/15/2023 TC:3 CPT: 17821
[2023-08-15] MEDS: Lactated Ringers 1,000 ML 15 ML IV (06:58)
--- NOTE | 2023-08-15 07:57 | HP.PCM_ITS ---
[facility] - General General Date of Service: 08/15/23 Chief Complaint: Bladder neck obstruction [facility] Narrative RUFINO VALADEZ, is a 77 M who presents for transurethral resection of the bladder neck for obstruction of the bladder neck. [facility] Medical History (Updated 07/26/23 @ 14:17 by Matt Dumont) Abnormal Heart Score CT Abnormal nuclear stress test Atherosclerosis of coronary artery without angina pectoris BPH (benign prostatic hyperplasia) Bradycardia Cardiology follow-up encounter Diverticulosis Erectile dysfunction Essential (primary) hypertension Hearing loss Hemorrhoid Hyperlipidemia Hypertension Left bundle branch block (LBBB) Non-smoker Osteoarthritis Syncope (01/27/20) Tobacco use Wears glasses Home Medications atorvastatin 20 mg tablet 20 mg PO QHS cholesterol 07/23/19 [History Last Taken 08/14/23] aspirin 81 mg tablet,delayed release (Adult Low Dose Aspirin) 81 mg PO QDAY #30 tabs 03/24/20 [Rx Last Taken 08/09/23] cholecalciferol (vitamin D3) 50 mcg (2,000 unit) capsule 2,000 unit PO DAILY supplement 08/05/20 [History Last Taken 08/14/23] atenolol 25 mg tablet 12.5 mg PO Q OTHER DAY heart 10/19/21 [History Last Taken Unknown] Allergy/AdvReac Type Severity Reaction Status Date / Time No Known Allergies Allergy Verified 08/15/23 06:46 Family History Mother CAD (coronary artery disease) Heart disease Hypertension Hyperlipidemia Sister CAD (coronary artery disease) CABG, Carotid Disease Father ETOH abuse Sister Breast cancer Surgical History (Updated 07/26/23 @ 14:17 by Matt Dumont) History of cardiac catheterization History of cataract surgery History of colonoscopy History of left heart catheterization (04/01/20) History of transurethral resection of prostate Social History Smoking Status: Former smoker how long ago did patient quit smokin years ago alcohol intake: never substance use type: does not use caffeine: No Vital Signs Vital Signs Vital Signs: 08/15/23 06:49 08/15/23 06:49 Temperature 98.6 F Temperature Source Temporal Pulse Rate 64 Respiratory Rate 16 Respiratory Pattern Normal Blood Pressure 136/72 H Blood Pressure Mean 93 Blood Pressure Source Monitor Blood Pressure Position Semi-Fowlers Blood Pressure Location Left Arm Pulse Ox 100 Oxygen Delivery Method Room Air Weight Weight: 64 kg Body Mass Index (BMI) 22.1
[2023-08-15] MEDS: Cefazolin 2 GM in 0.9% Normal Saline (100mL Bag) 100 ML IV (08:20)
--- NOTE | 2023-08-15 08:55 | DCINST_ITS ---
Discharge Instructions Diet Discharge Diet: No restrictions Activity Discharge Activity: Return to Normal Activity and May Not Drive (while taking narcotic pain medications.) Dressing / Incision Call your doctor if you observe: Fever of 101 or Higher Follow Up Care Please Follow Up With: Flash Becker MD When: Call [phone] for an appointment Test Results: Test results from this visit will be discussed in further detail at your follow- up appointment, if applicable. Discharge Plan Admission Attending Provider: Flash Becker Primary Care Provider: Melissa العراقي Discharge Orders/Prescriptions Prescriptions: No Action aspirin [Adult Low Dose Aspirin] 81 mg tablet,delayed release (DR/EC) 81 mg PO QDAY Qty: 30 3RF atenolol 25 mg tablet 12.5 mg PO Q OTHER DAY Rx Instructions: every other day atorvastatin 20 MG tablet 20 mg PO QHS cholecalciferol (vitamin D3) 2,000 UNIT capsule 2,000 unit PO DAILY Other Ambulatory Orders: 12 Lead EKG (Routine) Location: None Selected Ordered By: Dr. Yemi Tolbert Referrals / Follow Up: Melissa العراقي DO [Primary Care Provider] - Disposition Disposition (needs filled in before D/C Order can be placed): Home, Self Care
--- NOTE | 2023-08-15 08:55 | OP.PCM_ITS ---
Report of Operation Date of Procedure: 08/15/23 Pre-Operative Diagnosis: BPH with obstruction and obstruction of the bladder ne ck Post-Operative Diagnosis: The same Surgery/Procedure Performed:: Transurethral resection of the bladder neck and prostate tissue obstruction for regrowth Description of Surgical Findings:: This is a 77-year-old male has a history of a prior TURP he has been having more difficulty going to the bathroom and emptying his bladder on cystoscopy is found to have bladder neck contracture and regrowth of prostatic tissue causing obstruction from the verumontanum into the bladder so today working to go in there and resect this obstructive tissue. Patient was taken back to the operating room at a smooth induction of anesthesia he was placed in dorsolithotomy position. The penis and testicles were prepped and draped in usual sterile fashion. Went into the bladder with a 24 [place] visual obturator Olympus cystoscope was able to get through the urethra to the sphincter and then got to the verumontanum but then I could not go any further there is a scarred down bladder neck and prostatic obstruction I then put in the resectoscope and at this point I used the medium size loop and then cut open the bladder neck area and then started resecting the bladder neck and resected the obstructive prostate tissue that was blocking the channel way from the bladder neck to the verumontanum after the scar tissue was resected then he had a nice wide open channel all the way from the verumontanum into the bladder the good sparing of the sphincter so she had good he should have good bladder control did not take any chances and resecting too close to the sphincter had a nice sphincter intact and had a nice open channel from the verumontanum into the bladder neck did a flow flow test it was somewhat of a medium flow but since he has count of a week distended bladder I did not want to do anymore resection especially since I resected everything wide open from the bladder neck to the verumontanum so I then Ellik out all the chips out of the bladder and then ends on inspection of the bladder he had a heavily trabeculated bladder multiple saccules and some large diverticuli posteriorly about 2 cm in size but nothing that needs to be removed surgically. Heavily trabeculated bladder this can have a stretched out bladder somewhat of an atonic looking. Put a 22 [place] catheter into the bladder and will put on continuous irrigation patient has an a was reversed taken back to PACU in good condition. Surgeon: Flash Becker Type of Anesthesia: General Drains: [address] Estimated Blood Loss (mL): 0 Admit VTE Documentation VTE Present on Admission: No VTE Mechan Device Prophylaxis: SCD's VTE Pharm Prophylaxis ordered?: No
--- NOTE | 2023-08-15 09:56 | EKG12_ITS ---
Test Reason : POSTOP Blood Pressure : / mmHG Vent. Rate : 072 BPM Atrial Rate : 072 BPM P-R Int : 164 ms QRS Dur : 148 ms QT Int : 452 ms P-R-T Axes : 064 011 118 degrees QTc Int : 494 ms Normal sinus rhythm Left bundle branch block Abnormal ECG When compared with ECG of 31-JUL-2023 10:48, Left bundle branch block is now Present Confirmed by TIMUR TYSON, KIERRA ([id number]), make up editor MORE MUNOZ ([id number]) on 08/21/2023 12:52:46 PM Referred By: Flash Becker Confirmed By:KIERRA DING MD
[2023-08-15] MEDS: 0.9% Normal Saline (1000mL) 1,000 ML 125 ML IV ×2 (12:24→18:46)
[2023-08-15] MEDS: Atenolol 25 MG Tablet 12.5 MG PO (16:10)
[2023-08-15] MEDS: Docusate Sodium 100 MG Capsule 200 MG PO (21:35)
[2023-08-15] MEDS: Ciprofloxacin 500 MG Tablet PO (21:36)
[2023-08-15] MEDS: Atorvastatin Calcium 20 MG Tablet PO (21:37)
[2023-08-16 00:11] VITALS: BP 137/65; PULSE 55; RESP 15; TEMP 36.4; O2SAT 98
[2023-08-16] MEDS: 0.9% Normal Saline (1000mL) 1,000 ML 125 ML IV (02:00)
[2023-08-16 04:11] VITALS: BP 132/61; PULSE 52; RESP 16; TEMP 36.5; O2SAT 99
--- NOTE | 2023-08-16 06:56 | PCM.PN.GU ---
Subjective Subjective Status post transurethral section of the prostate, urine is slightly bloody this morning but okay we can DC Li and patient can go home without a catheter as long as he can void okay Objective Data Objective Data Vital Signs: Vital Signs Temp Pulse Resp BP Pulse Ox O2 Del Method 97.7 F L 52 L 16 132/61 H 99 Room Air 08/16/23 04:11 08/16/23 04:11 08/16/23 04:11 08/16/23 04:11 08/16/23 04:11 08/16/23 04:11 Oxygen Delivery Method Room Air Weight: 64 kg Body Mass Index (BMI) 22.1 Intake & Output: Intake and Output for Last 24 Hours 08/14/23 08/15/23 08/16/23 23:59 23:59 23:59 Intake Total 987.33 / 987.33 904.17 / 904.17 Output Total 3200 / 4000 1100 / 1100 Balance -2212.67 / -3012.67 -195.83 / -195.83
[2023-08-16 08:11] VITALS: BP 143/66; PULSE 67; RESP 17; TEMP 36.7; O2SAT 98
[2023-08-16] MEDS: Ciprofloxacin 500 MG Tablet PO (09:44)
[2023-08-16] MEDS: Docusate Sodium 100 MG Capsule 200 MG PO (09:44)
--- NOTE | 2023-08-16 11:28 | PHA.DC.MC.R ---
Pharmacy [facility] Pharmacy Service has performed discharge medication reconciliation and counseling for this patient. The patient was counseled on the following discharge medications and changes in medications for homegoing were reviewed. 1. CIPRO The Reason for Use, instructions for use, and potential side effects were reviewed for all new medications. The patient's questions regarding all of their medications were answered. The patient was able to verbally demonstrate an understanding of their discharge medications. The patient's discharge medication list was reviewed for discrepancies and discrepancies were resolved. Medications at Discharge Home Medications atorvastatin 20 mg tablet 20 mg PO QHS cholesterol 07/23/19 aspirin 81 mg tablet,delayed release (Adult Low Dose Aspirin) 81 mg PO QDAY #30 tabs 03/24/20 cholecalciferol (vitamin D3) 50 mcg (2,000 unit) capsule 2,000 unit PO DAILY supplement 08/05/20 atenolol 25 mg tablet 12.5 mg PO Q OTHER DAY heart 10/19/21 ciprofloxacin HCl 500 mg tablet (Cipro) 500 mg PO BID #10 tabs 08/15/23
[2023-08-16 11:46] VITALS: BP 129/66; PULSE 54; RESP 18; TEMP 36.6; O2SAT 99
== END 2023-08-16 13:30 | disposition home or self-care (01) ==
LOC: SDC 11:48 → MS3 11:48
PROVIDERS: Admitting Provider Urology; PCP Internal Medicine; Referring Provider Urology; Visit Provider Urology
PROC: 0TBB8ZZ Excision of Bladder, Via Natural or Artificial Opening Endoscopic (ICD-10-PCS; CPT 52630; principal; 2023-08-15 08:15)
DX: N40.1 Benign prostatic hyperplasia with lower urinary tract symptoms (principal); I25.10 Atherosclerotic heart disease of native coronary artery without angina pectoris; N32.0 Bladder-neck obstruction; Z87.891 Personal history of nicotine dependence; Z79.899 Other long term (current) drug therapy; Z79.82 Long term (current) use of aspirin; I10 Essential (primary) hypertension; E78.5 Hyperlipidemia, unspecified
CPT/HCPCS: 52630; 00914; 88305; 93005; 94668; 96360; 96361; 99221; J7030; J7120; G0378; J2405

== ENCOUNTER 2023-08-17 09:27 | Emergency (ER) | payer MEDICARE, SELFPAY ==
[2023-08-17 09:28] VITALS: BP 155/79; PULSE 111; RESP 16; TEMP 37; O2SAT 100; BMI 22.2
--- NOTE | 2023-08-17 10:40 | EDS_ITS ---
HPI History of Present Illness Chief Complaint: Male Pain/Injury Narrative Narrative: Patient is a 77-year-old male who is presenting to the ER today with chief complaint of intermittent spasm to the glans/shaft of his penis. Patient had a cystoscopy by Dr. Dwyer on Sunday. Patient stayed overnight and was discharged yesterday morning. Patient was having a stricture at the bottom of his bladder, patient states that a cystoscopy was done to going to look at the bladder and do some type of widening of a bladder/urethral stricture. Patient went home last evening. Patient is having intermittent severe spasm every 5 to 10 minutes, and he feels like the pain is at the tip of the penis. The tip of the penis/urethral meatus is slightly tender where the Li catheter was. Patient has no pain over the bladder, no bladder spasm. Patient is urinating. Patient does have hematuria which he was told would happen over the next couple days. Patient has no nausea or vomiting. Patient is having intermittent severe pain which was witnessed during HPI and physical exam that last for a few minutes and then goes away. Patient has no pain to his testicles. No new fall, new trauma, no other acute complaints. [facility] Medical History (Updated 08/17/23 @ 11:[address] Paul Umanzor, DO) Abnormal Heart Score CT Abnormal nuclear stress test Atherosclerosis of coronary artery without angina pectoris BPH (benign prostatic hyperplasia) Bradycardia Cardiology follow-up encounter Diverticulosis Erectile dysfunction Essential (primary) hypertension Hearing loss Hemorrhoid Hyperlipidemia Hypertension Left bundle branch block (LBBB) Non-smoker Osteoarthritis Syncope (01/27/20) Tobacco use Wears glasses Home Medications atorvastatin 20 mg tablet 20 mg PO QHS cholesterol 07/23/19 [History Last Taken 08/14/23] aspirin 81 mg tablet,delayed release (Adult Low Dose Aspirin) 81 mg PO QDAY #30 tabs 03/24/20 [Rx Last Taken 08/09/23] cholecalciferol (vitamin D3) 50 mcg (2,000 unit) capsule 2,000 unit PO DAILY supplement 08/05/20 [History Last Taken 08/14/23] atenolol 25 mg tablet 12.5 mg PO Q OTHER DAY heart 10/19/21 [History Last Taken Unknown] ciprofloxacin HCl 500 mg tablet (Cipro) 500 mg PO BID #10 tabs 08/15/23 [Rx Last Taken Unknown] Allergy/AdvReac Type Severity Reaction Status Date / Time No Known Allergies Allergy Verified 08/17/23 09:30 Family History Mother CAD (coronary artery disease) Heart disease Hypertension Hyperlipidemia Sister CAD (coronary artery disease) CABG, Carotid Disease Father ETOH abuse Sister Breast cancer Surgical History (Updated 07/26/23 @ 14:17 by Matt Dumont) History of cardiac catheterization History of cataract surgery History of colonoscopy History of left heart catheterization (04/01/20) History of transurethral resection of prostate Social History Smoking Status: Former smoker how long ago did patient quit smokin years ago alcohol intake: never substance use type: does not use caffeine: No ROS ROS ED ROS Narrative REVIEW OF SYSTEMS: Unless otherwise stated in this report the patient's positive and negative responses for review of systems for constitutional, eyes, ENT, cardiovascular, respiratory, gastrointestinal, neurological, , musculoskeletal, and integument systems and related systems to the presenting problem are either stated in the history of present illness or were not pertinent or were negative for the symptoms and/or complaints related to the presenting medical problem. EXAM Physical Exam Narrative Exam Narrative: Vital signs reviewed and patient is not hypoxic. General: The patient appears well and in moderate distress secondary to pain with a spasm/pain in the last for 1 to 2 minutes and then subsides. Patient is resting uncomfortably on cart. Not toxic, lethargic, or listless. Skin: Warm, dry, no pallor noted. There is no rash noted. Head: Normocephalic, atraumatic Eye: Normal conjunctiva, no drainage, EOMI. PERRL. Ears, Nose, Mouth, and Throat: oral mucosa is moist. Cardiovascular: Regular Rate and Rhythm, no murmurs, gallops, or rubs Respiratory: Patient is in no distress, no accessory muscle use, lungs are clear to auscultation, no wheezing, rales or rhonchi Back: non-tender, no CVA tenderness bilaterally to percussion. NO CTLS midline or paraspinal tenderness to palpation. GI: Soft, no tenderness to palpation, no masses appreciated. No rebound, guarding, or rigidity noted. : Patient has no tenderness to palpation to bilateral testicles, patient is circumcised, patient does have clear hematuria coming out of the urethral meatus, no clots noted. Patient does have some dried blood in his adult diaper. Patient has no pain over suprapubic area. Patient did have this pain episode that last for 1 to 2 minutes when I was at bedside, patient states the pain is i n the glans of the penis when he is trying to urinate, he is able to urinate, no pain when palpating the glans, shaft of the penis, or his testicles. Musculoskeletal: The patient has full range of motion of all extremities and joints with no difficulty. Patient has no motor, no sensory deficits. Neurological: A&O x4, normal speech, no focal neurological deficits. Psychiatric: Cooperative Const Vital Signs: 08/17/23 09:28 Temperature 98.6 F Temperature Source Temporal Pulse Rate 111 H Respiratory Rate 16 Blood Pressure 155/79 H Blood Pressure Mean 104 Pulse Ox 100 Oxygen Delivery Method Room Air MDM MDM MDM Narrative Medical decision making narrative: Pt saw Dr Zepeda in the ER, Li catheter was placed by Dr. Zepeda. Patient is no longer having spasm, patient feels better. Patient had no suprapubic tenderness palpation, 1 L of hematuria was drained. It was recommended by Dr. Zepeda to discharge the patient, he will see him in the office next week, and leave the Li catheter in. Patient was given injection of morphine and Zofran to help with his spasm and pain. Patient tolerated procedure well no difficulty. Patient will follow-up with urology, no question discharge. is driving home Lab Data Attestation: I reviewed the patient's lab results. Labs: urine culutre is pending Discharge Plan Triage Chief Complaint: Male Pain/Injury ED Provider: Paul Umanzor Dx/Rx/DC Orders Clinical Impression: Urinary retention Instructions: ED Li Catheter, Care, ED Urinary Retention, Male Prescriptions: No Action aspirin [Adult Low Dose Aspirin] 81 mg tablet,delayed release (DR/EC) 81 mg PO QDAY Qty: 30 3RF atenolol 25 mg tablet 12.5 mg PO Q OTHER DAY Rx Instructions: every other day atorvastatin 20 MG tablet 20 mg PO QHS cholecalciferol (vitamin D3) 2,000 UNIT capsule 2,000 unit PO DAILY ciprofloxacin HCl [Cipro] 500 mg tablet 500 mg PO BID Qty: 10 0RF Primary Care Provider: Melissa العراقي Referrals: Melissa العراقي DO [Primary Care Provider] - Activity Restrictions/Additional Instructions: Call today for a follow-up appointment next week. Li catheter education was done at bedside and on discharge paperwork. Any other acute concerns, call Dr. Zepeda. Urine culture is pending Disposition Disposition: Home, Self Care
[2023-08-17] MEDS: Morphine 4 MG/ML Syringe 8 MG IM (11:08)
[2023-08-17 11:40] LABS: Mucous, Urine 0 SEEN /hpf (<or=2+)
[2023-08-17 11:42] LABS: Color, Urine Red (Yellow); Glucose, Dipstick Normal (Normal); Ketone-Dipstick 15 mg/dl (Negative); Leukocyte Esterase-Dipstick 25 /ul (Negative); Nitrite-Dipstick Negative (Negative); Occult Blood-Urine 250 /ul (Negative); Protein-Dipstick 500 mg/dl (Negative); Specific Gravity, Urine 1.005 (1.002-1.030); Urine Bilirubin Dipstick Negative (Negative); Urine Clarity Sl. Cloudy (Clear); Urine Urobilinogen Normal (Normal)
[2023-08-17 11:51] VITALS: BP 120/41; PULSE 63; RESP 18; O2SAT 96
[2023-08-17 11:53] LABS: Bacteria 1+ /hpf (None Seen); Red Blood Cells-Urine 25-50 SEEN /hpf (0-5); Squamous Epithelial Cells - UA 0-5 SEEN /hpf (0-5); White Blood Cells 0-5 SEEN /hpf (0-5)
[2023-08-17 11:58] VITALS: BP 128/74; PULSE 81; RESP 15; O2SAT 98
== END 2023-08-17 12:03 | disposition home or self-care (01) ==
LOC: ED 11:53
PROVIDERS: Emergency Provider Emergency Medicine; PCP Internal Medicine; Visit Provider Emergency Medicine
DX: R33.9 Retention of urine, unspecified (principal); I25.10 Atherosclerotic heart disease of native coronary artery without angina pectoris; I10 Essential (primary) hypertension; Z87.891 Personal history of nicotine dependence; E78.5 Hyperlipidemia, unspecified; Z79.899 Other long term (current) drug therapy; Z79.82 Long term (current) use of aspirin
CPT/HCPCS: 51702; 81001; 87077; 87086; 87088; 87186; 96372; 99283

== ENCOUNTER 2023-08-18 21:08 | Emergency (ER) | payer MEDICARE, SELFPAY ==
[2023-08-18 21:08] VITALS: BP 92/80; PULSE 66; RESP 16; TEMP 36.8; O2SAT 100; BMI 22.2
--- NOTE | 2023-08-18 22:08 | ED.VIS.GI ---
HPI HPI - GI History of Present Illness Chief Complaint: Constipation Narrative Narrative: 77-year-old male presenting with diffuse crampy abdominal pain and constipation. He states that it started in the mid day today. He is has taken 3 doses of 6 ounces of magnesium citrate and he is having intermittent small liquidy bowel movements. He states that after he gets up and goes back to sit down he feels as if he is going to go again. He said he is on a several times today. No black or bloody stools. No solid bowel movements. The crampy abdominal pain comes in waves. No fevers or chills. No nausea or vomiting. Of note patient has a Li catheter in place due to urinary retention from yesterday and he notes that it has been draining well and actually has been clearing up. PFSH PFSH Medical History Abnormal Heart Score CT Abnormal nuclear stress test Atherosclerosis of coronary artery without angina pectoris BPH (benign prostatic hyperplasia) Bradycardia Cardiology follow-up encounter Diverticulosis Erectile dysfunction Essential (primary) hypertension Hearing loss Hemorrhoid Hyperlipidemia Hypertension Left bundle branch block (LBBB) Non-smoker Osteoarthritis Syncope (01/27/20) Tobacco use Wears glasses Home Medications atorvastatin 20 mg tablet 20 mg PO QHS cholesterol 07/23/19 [History Last Taken 08/14/23] aspirin 81 mg tablet,delayed release (Adult Low Dose Aspirin) 81 mg PO QDAY #30 tabs 03/24/20 [Rx Last Taken 08/09/23] cholecalciferol (vitamin D3) 50 mcg (2,000 unit) capsule 2,000 unit PO DAILY supplement 08/05/20 [History Last Taken 08/14/23] atenolol 25 mg tablet 12.5 mg PO Q OTHER DAY heart 10/19/21 [History Last Taken Unknown] ciprofloxacin HCl 500 mg tablet (Cipro) 500 mg PO BID #10 tabs 08/15/23 [Rx Last Taken Unknown] Allergy/AdvReac Type Severity Reaction Status Date / Time No Known Allergies Allergy Verified 08/18/23 21:08 Family History Mother CAD (coronary artery disease) Heart disease Hypertension Hyperlipidemia Sister CAD (coronary artery disease) CABG, Carotid Disease Father ETOH abuse Sister Breast cancer Surgical History History of cardiac catheterization History of cataract surgery History of colonoscopy History of left heart catheterization (04/01/20) History of transurethral resection of prostate Social History Smoking Status: Former smoker how long ago did patient quit smokin years ago alcohol intake: never substance use type: does not use caffeine: No ROS ROS ED Constitutional Constitutional ED: Denies chills, fever(s) or sweats Eyes Eyes: Denies blurry vision or change in vision ENT ENT ED: Denies ear pain or sore throat Cardiovascular Cardiovascular: Denies chest pain, palpitations or racing heartbeat Respiratory/Chest Respiratory/Chest: Denies cough, dyspnea or sputum Gastrointestinal Gastrointestinal: Reports abdominal pain, constipation and diarrhea; Denies nausea or vomiting Genitourinary Genitourinary ED: Denies dysuria, hematuria or urinary frequency Musculoskeletal Musculoskeletal: Denies arthralgias, myalgias or neck pain Integumentary Denies abscess, Abrasions or rash Neurologic Neurologic: Denies headache(s), paresthesias or weakness Psychiatric Psychiatric: Denies anxiety, depression, suicidal ideation or suicidal thoughts Endocrine Endocrinology: Denies polydipsia or polyuria EXAM Physical Exam Const Vital Signs: 08/18/23 21:08 Temperature 98.3 F Temperature Source Temporal Pulse Rate 66 Respiratory Rate 16 Blood Pressure 92/80 Blood Pressure Mean 84 Pulse Ox 100 Positive well nourished General Appearance ED: NAD; Negative for pallor HEENT Reports TM's clear and moist mucous membranes normocephalic Tympanic Membrane ED: Yes TM's clear Eyes PERRL and EOMs intact bilaterally Resp normal respiratory effort and clear to auscultation bilaterally Auscultation: Negative for rales, rhonchi or wheezes Cardio regular rate and regular rhythm GI Palpation: tender LLQ and periumbilical Back/Spine no CVA tenderness Neuro CN's II-XII intact bilaterally Sensorium / Orientation: alert Psych mental status grossly normal Skin General Skin Exam: Negative for jaundice or pallor MDM MDM MDM Narrative Medical decision making narrative: Patient presenting with abdominal pain. Is mostly periumbilical and left lower quadrant. Patient presenting with right flank pain. Differential includes colitis, diverticulitis, gastritis, pancreatitis, constipation, renal calculi, ureteral calculi, bowel obstruction, malignancy, dehydration, electrolyte abnormalities. Patient had UA yesterday when Li catheter was put in place. He is already on Cipro. He does not seem to be having flank pain or CVA tenderness. This makes kidney stone, pyelonephritis less likely. We did discuss holding narcotic pain medication as the patient is constipated and this might make it worse. Patient given normal saline and Toradol. We will obtain a CBC to assess white blood cell count, hemoglobin, platelets. CMP to assess liver function, renal function, electrolytes, glucose. Lipase to assess for pancreatitis. CT of the abdomen pelvis with IV contrast will be obtained. On rectal exam I can feel some stool at the tip of my finger but I cannot disimpact it. CBC shows a white blood cell count of 13.1. Hemoglobin stable 13.2. Platelets normal 198. Renal function and electrolytes within normal limits. LFTs are normal. Lipase is negative. CT of the abdomen pelvis shows concern for fecal impaction distal sigmoid colon and rectum dilating it up to 7.5 cm. There is a large amount of stool throughout the colon as well. Patient will be given a soapsuds enema. Patient will be signed out to incoming ED physician for monitoring. Impression: 1. Fecal impaction 2. Constipation 3. Abdominal pain Lab Data Attestation: I reviewed the patient's lab results. Labs: Laboratory Results - last 24 hr 08/18/23 22:20 WBC 13.1 H RBC 4.36 L Hgb 13.2 Hct 39.1 L MCV 89.7 MCH 30.3 MCHC 33.8 RDW Std Deviation 41.6 RDW Coeff of Treva 12.6 Plt Count 198 MPV 10.1 Immature Gran % (Auto) 0.400 Neut % (Auto) 90.1 H Lymph % (Auto) 3.8 L Piute % (Auto) 5.4 Eos % (Auto) 0.1 Baso % (Auto) 0.2 Absolute Neuts (auto) 11.8 H Absolute Lymphs (auto) 0.50 L Nucleated RBC % 0 Differential Comment SEE COMMENT Platelet Estimate ADEQUATE RBC Morphology N CHROM Anisocytosis RARE Macrocytosis RARE Sodium 138 Potassium 4.0 Chloride 103 Carbon Dioxide 30.0 Anion Gap 5 BUN 17 Creatinine 0.95 Estim Creat Clear Calc 60.27 Est GFR (MDRD) Af Amer 98 Est GFR (MDRD) Non-Af 81 BUN/Creatinine Ratio 17.8 Glucose 173 H Calcium 9.0 Total Bilirubin 0.80 AST 36 ALT 36 Alkaline Phosphatase 87 Total Protein 7.1 Albumin 3.4 Globulin 3.7 Albumin/Globulin Ratio 0.9 Lipase 79 H Radiography Diagnostic Testing: Clinical Impression(s) from Imaging Studies Abdomen/Pelvis CT 08/18/23 23:15 IMPRESSION: Large amount of stool impacted in the distal sigmoid colon and rectum, dilating it up to 7.5 cm, with a large amount of stool throughout the remainder of the colon which is distended. Electronically Signed: Maldonado Lundberg MD at 23:36 EDT , Discharge Plan Triage Chief Complaint: Constipation ED Provider: Conner Peters Dx/Rx/DC Orders Instructions: ED Constipation (Adult), ED Fecal Impaction, Treated Prescriptions: No Action aspirin [Adult Low Dose Aspirin] 81 mg tablet,delayed release (DR/EC) 81 mg PO QDAY Qty: 30 3RF atenolol 25 mg tablet 12.5 mg PO Q OTHER DAY Rx Instructions: every other day atorvastatin 20 MG tablet 20 mg PO QHS cholecalciferol (vitamin D3) 2,000 UNIT capsule 2,000 unit PO DAILY ciprofloxacin HCl [Cipro] 500 mg tablet 500 mg PO BID Qty: 10 0RF Primary Care Provider: Melissa العراقي Referrals: Melissa العراقي DO [Primary Care Provider] - Disposition Disposition: Home, Self Care
[2023-08-18] MEDS: Ketorolac 15 MG/ML Vial IV (22:18)
[2023-08-18] MEDS: 0.9% Normal Saline (1000mL) 1,000 ML 1000 ML IV (22:18)
[2023-08-18 22:24] LABS: Absolute Neutrophil Count 11.8 X10^3/uL (2.0-7.7); Basophil# 0.02 X10^3/uL; Basophil% 0.2 % (0-1); Eosinophil# 0.01 X10^3/uL; Eosinophils% 0.1 % (0-5); Hematocrit 39.1 % (40-54); Hemoglobin 13.2 g/dL (13.0-16.5); Lymphocyte % 3.8 % (19-41); Mean Corp Hgb Conc 33.8 g/dL (32-36); Mean Corpuscular Hgb 30.3 pg (27.0-32.0); Mean Corpuscular Volume 89.7 fL (80-94); Mean Platelet Vol. 10.1 fl (6.2-12.0); Monocyte% 5.4 % (0-10); NRBC Flagged by Analyzer 0 % (0-5); Neutrophil # 11.77 X10^3/uL (2.7-7.7); Neutrophil % 90.1 % (47-70); POSITIVE DIFFERENTIAL YES; Platelet Count 198 K/mm3 (150-450); RBC Distribution Width CV 12.6 % (11.6-14.6); RBC Distribution Width SD 41.6 fl (35.1-43.9); Red Blood Count 4.36 M/mm3 (4.6-6.2); White Blood Count 13.1 K/mm3 (4.4-11.0)
[2023-08-18 22:39] LABS: ALB/GLOB Ratio 0.9 RATIO (0.9-2.4); AST(SGOT) 36 U/L (15-37); Alanine Aminotransfer ALT/SGPT 36 U/L (16-61); Albumin, Serum 3.4 g/dL (3.2-5.0); Alkaline Phosphatase 87 U/L (45-117); Anion Gap 5 (5-15); BUN 17 mg/dL (7-18); BUN/Creat Ratio 17.8 RATIO (10-20); Chloride 103 mmol/L (98-107); Creatinine, Serum 0.95 mg/dL (0.70-1.30); EST Glomerular Filtration Rate 81 mL/min (>60); Est Glom Filt Rate - Afr Amer 98 mL/min (>60); Estimated Creatinine Clearance 60.27 ml/min; Globulin 3.7 g/dL (2.2-4.2); Glucose 173 mg/dL (74-106); Lipase 79 U/L (13-75); Protein, Total 7.1 g/dL (6.4-8.2); Sodium Level 138 mmol/L (136-145)
[2023-08-18 22:43] LABS: Differential Indicated SCAN CRITERIA MET
[2023-08-18 22:47] LABS: Anisocytosis RARE; Macrocytosis RARE; Platelet Estimate ADEQUATE (ADEQ); Red Cell Morphology N CHROM NORMAL (NORM C&C)
[2023-08-18 23:11] VITALS: BP 100/81; PULSE 67; RESP 16; TEMP 36.9; O2SAT 100
--- NOTE | 2023-08-18 23:15 | CT_ITS ---
EXAM: CT ABDOMEN AND PELVIS WITH INTRAVENOUS CONTRAST CLINICAL INDICATION: llq abdominal pain TECHNIQUE: Helically acquired images were obtained of the abdomen and pelvis with intravenous contrast. This CT exam was performed using one or more of the following dose reduction techniques: automated exposure control, adjustment of the mA and/or kV according to patient size, and/or use of iterative reconstruction technique. CONTRAST: IV 100mL Isovue-300 RADIATION DOSE: CTDIvol = 7.90 mGy, DLP = 499.26 mGy-cm COMPARISON: CT abdomen pelvis 07/08/2019 FINDINGS: LOWER THORAX: Unremarkable. Lung bases are clear. No cardiomegaly. No significant pericardial effusion. ABDOMEN: LIVER: Unremarkable. Homogeneous. No focal mass. GALLBLADDER AND BILE DUCTS: The gallbladder is partially contracted. No calcified gallstones. No gallbladder distention or wall edema. No intra- or extrahepatic biliary ductal dilation. PANCREAS: Unremarkable. No focal cystic or solid mass. SPLEEN: Unremarkable. Normal size without focal cystic or solid mass. ADRENALS: Unremarkable. No nodules. KIDNEYS AND URETERS: Benign right renal cyst. No follow-up imaging is recommended per consensus recommendations based on imaging criteria. Normal renal size and position. No hydronephrosis. STOMACH AND BOWEL: Large amount of stool impacted in the distal sigmoid colon and rectum, dilating it up to 7.5 cm, with a large amount of stool throughout the remainder of the colon which is also distended. The small bowel is unremarkable. No focal inflammatory change. PELVIS: APPENDIX: No evidence of acute appendicitis. BLADDER: Li catheter in the bladder. REPRODUCTIVE: Unremarkable as visualized. No mass. ABDOMEN and PELVIS: INTRAPERITONEAL SPACE: Unremarkable. No ascites or other fluid collection. No free air. BONES/JOINTS: Unremarkable. No suspicious lytic or blastic abnormality. SOFT TISSUES: Unremarkable. No discrete abdominal or pelvic wall hernia. VASCULATURE: Moderate atherosclerotic changes of the abdominal aorta without aneurysm. LYMPH NODES: Unremarkable. No enlarged lymph nodes. CT/Abdomen/Pelvis W IV Cont ONLY IMPRESSION: Large amount of stool impacted in the distal sigmoid colon and rectum, dilating it up to 7.5 cm, with a large amount of stool throughout the remainder of the colon which is distended. Electronically Signed: Maldonado Lundberg MD at 23:36 EDT ,
[2023-08-19] MEDS: 0.9% Normal Saline (1000mL) 1,000 ML 999 ML IV (00:35)
[2023-08-19] MEDS: Fleet Enema 1 ML RC (03:00)
[2023-08-19 03:50] VITALS: BP 104/75; PULSE 68; RESP 16; O2SAT 99
[2023-08-19 03:51] VITALS: BP 104/75; PULSE 65; RESP 16; O2SAT 99
== END 2023-08-19 03:53 | disposition home or self-care (01) ==
PROVIDERS: Emergency Provider Student in an Organized Health Care Education/Training Program; PCP Internal Medicine; Referring Provider Student in an Organized Health Care Education/Training Program; Visit Provider Student in an Organized Health Care Education/Training Program
DX: K56.41 Fecal impaction (principal); E78.5 Hyperlipidemia, unspecified; I25.10 Atherosclerotic heart disease of native coronary artery without angina pectoris; I10 Essential (primary) hypertension; Z87.891 Personal history of nicotine dependence; R10.9 Unspecified abdominal pain; Z96.0 Presence of urogenital implants; Z79.899 Other long term (current) drug therapy; Z79.82 Long term (current) use of aspirin
CPT/HCPCS: 74177; 80053; 83690; 85025; 96361; 96374; 99284; J7030; Q9967; A4216

== ENCOUNTER → 2023-12-25 | Outpatient (CLI) | payer MEDICARE, SELFPAY ==
--- NOTE | 2023-12-25 13:59 | CDU_ITS ---
Reason For Study: Arteriosclerosis of carotid artery Rt. Velocities/BP Lt. Velocities/BP Prox CCA 97.1/11.3 cm/sec. Prox CCA 106.9/19 cm/sec. Mid CCA 102.5/19 cm/sec. Mid CCA 85/17.9 cm/sec. Dist CCA 94.9/16.8 cm/sec. Dist CCA 87.2/22.3 cm/sec. Prox ICA 90/15.1 cm/sec. Prox ICA 86.3/26.2 cm/sec. Mid ICA 85.1/20 cm/sec. Mid ICA 94.9/26.2 cm/sec. Dist ICA 110.9/20 cm/sec. Dist ICA 102.3/34.8 cm/sec. Rt. ICA/CCA = 1.14. Lt. ICA/CCA = 1.17. Prox ECA 106/10.2 cm/sec. Prox ECA 110.9/12.6 cm/sec. Rt. Vert. 46.6/9.7 cm/sec. Lt. Vert. 45.4/10.2 cm/sec. Right Extracranial There is homogeneous, smooth atherosclerotic plaque noted in the right common carotid artery. There is heterogeneous, irregular atherosclerotic plaque noted in the right internal carotid artery. There is homogeneous, smooth atherosclerotic plaque noted in the right external carotid artery. Antegrade flow is noted in the right vertebral artery. Left Extracranial There is homogeneous, smooth atherosclerotic plaque noted in the left common carotid artery. There is heterogeneous, irregular atherosclerotic plaque noted in the left internal carotid artery. There is intimal thickening but no significant atherosclerotic plaque noted in the left external carotid artery. Antegrade flow is noted in the left vertebral artery. Procedure Carotid Duplex 08227. This is a Carotid Duplex examination using B-mode, color flow and specral Doppler. Exam performed in department. VL/Carotid Duplex Ultrasound Interpretation Summary Mild irregular plaque at the proximal right internal carotid artery with less t crocker 50% stenosis Less than 50% stenosis right external carotid artery Mild irregular plaque at the proximal left internal carotid artery with less th an 50% stenosis Less than 50% stenosis left external carotid artery Patent antegrade vertebral arteries bilaterally No change from the previous examination of March 02, 2023 Ordering Physician: Melissa العراقي Referring Physician: Melissa العراقي Performed By: Shayna Moise RVT
== END | disposition home or self-care (01) ==
LOC: CVS 13:57
PROVIDERS: PCP Internal Medicine; Referring Provider Internal Medicine; Visit Provider Internal Medicine
DX: I65.23 Occlusion and stenosis of bilateral carotid arteries (principal)
CPT/HCPCS: 93880

== ENCOUNTER → 2023-12-31 | Outpatient (CLI) | payer MEDICARE, SELFPAY ==
[2023-12-31 13:27] LABS: PSA,Total - Annual Screen 2.48 ng/mL (0.00-4.00)
== END | disposition home or self-care (01) ==
LOC: LAB 11:20
PROVIDERS: PCP Internal Medicine; Referring Provider Nurse Practitioner; Visit Provider Nurse Practitioner
DX: Z12.5 Encounter for screening for malignant neoplasm of prostate (principal)
CPT/HCPCS: 36415; 84153; G0103

== ENCOUNTER 2024-07-02 13:23 | Outpatient (CLI) | payer MEDICARE, SELFPAY ==
[2024-07-02 13:28] VITALS: BP 120/56; PULSE 53; RESP 16; TEMP 35.9; O2SAT 100; BMI 22.4
[2024-07-02] MEDS: NORMAL SALINE 0.9% IV (14:03)
[2024-07-02] MEDS: 0.9% NaCl IVPB Med Flush (250 mL) 15 ML IV (14:03)
[2024-07-02] MEDS: CEFEPIME HCL IV (14:03)
[2024-07-02] MEDS: 0.9% NaCl Peripheral Flush Adult/Peds IV (14:05)
[2024-07-02 14:58] VITALS: BP 93/57; PULSE 52
== END 2024-07-02 23:59 | disposition home or self-care (01) ==
LOC: MEDOUTP 13:24
PROVIDERS: PCP Internal Medicine; Referring Provider Internal Medicine; Visit Provider Internal Medicine
DX: N39.0 Urinary tract infection, site not specified (principal)
CPT/HCPCS: 96365; J7050; A4216

== ENCOUNTER 2024-07-03 13:23 | Outpatient (CLI) | payer MEDICARE, SELFPAY ==
[2024-07-03 13:36] VITALS: BP 127/49; PULSE 59; RESP 16; TEMP 36.1; O2SAT 97
[2024-07-03] MEDS: 0.9% NaCl IVPB Med Flush (250 mL) 15 ML IV (13:39)
[2024-07-03] MEDS: 0.9% NaCl Peripheral Flush Adult/Peds IV (13:39)
[2024-07-03] MEDS: CEFEPIME HCL IV (13:42)
[2024-07-03] MEDS: NORMAL SALINE 0.9% IV (13:42)
[2024-07-03 14:29] VITALS: BP 120/53; PULSE 59; RESP 16
== END 2024-07-03 23:59 | disposition home or self-care (01) ==
LOC: MEDOUTP 13:23
PROVIDERS: PCP Internal Medicine; Referring Provider Internal Medicine; Visit Provider Internal Medicine
DX: N39.0 Urinary tract infection, site not specified (principal)
CPT/HCPCS: 96365; 96366; J7050; A4216

== ENCOUNTER 2024-07-04 12:52 | Outpatient (CLI) | payer MEDICARE, SELFPAY ==
[2024-07-04] MEDS: 0.9% NaCl IVPB Med Flush (250 mL) 15 ML IV (13:00)
[2024-07-04] MEDS: 0.9% NaCl Peripheral Flush Adult/Peds IV (13:00)
[2024-07-04] MEDS: NORMAL SALINE 0.9% IV (13:04)
[2024-07-04] MEDS: CEFEPIME HCL IV (13:04)
[2024-07-04 13:06] VITALS: BP 103/52; PULSE 51; RESP 16; TEMP 36.2; O2SAT 94
[2024-07-04 13:52] VITALS: BP 93/54; PULSE 91; RESP 16; TEMP 36.2
== END 2024-07-04 23:59 | disposition home or self-care (01) ==
LOC: MEDOUTP 12:53
PROVIDERS: PCP Internal Medicine; Referring Provider Internal Medicine; Visit Provider Internal Medicine
DX: N39.0 Urinary tract infection, site not specified (principal)
CPT/HCPCS: 96365; J7050; A4216

== ENCOUNTER 2024-07-05 13:10 | Outpatient (CLI) | payer MEDICARE, SELFPAY ==
[2024-07-05] MEDS: Cefepime HCl 2 GM in 0.9% Normal Saline (100mL MB+) 100 ML IV (13:40)
[2024-07-05] MEDS: 0.9% NaCl Peripheral Flush Adult/Peds IV ×2 (13:43→14:47)
[2024-07-05] MEDS: 0.9% NaCl IVPB Med Flush (250 mL) 15 ML IV (13:45)
== END 2024-07-05 14:31 | disposition home or self-care (01) ==
LOC: MEDOUTP 13:10 → PCU 13:11
PROVIDERS: PCP Internal Medicine; Referring Provider Internal Medicine; Visit Provider Internal Medicine
DX: N39.0 Urinary tract infection, site not specified (principal)
CPT/HCPCS: 96365; J7050; A4216

== ENCOUNTER 2024-07-06 13:07 | Outpatient (CLI) | payer MEDICARE, SELFPAY ==
[2024-07-06] MEDS: Cefepime HCl 2 GM in 0.9% Normal Saline (100mL MB+) 100 ML IV (13:40)
== END 2024-07-06 14:23 | disposition home or self-care (01) ==
LOC: MEDOUTP 13:07 → PCU 13:08
PROVIDERS: PCP Internal Medicine; Referring Provider Internal Medicine; Visit Provider Internal Medicine
DX: N39.0 Urinary tract infection, site not specified (principal)
CPT/HCPCS: 96365; J7040

== ENCOUNTER 2024-07-07 12:51 | Outpatient (CLI) | payer MEDICARE, SELFPAY ==
[2024-07-07] MEDS: Cefepime HCl 2 GM in 0.9% Normal Saline (100mL MB+) 100 ML IV (13:04)
[2024-07-07] MEDS: 0.9% NaCl Peripheral Flush Adult/Peds IV (13:06)
[2024-07-07 13:07] VITALS: BP 127/57; PULSE 62; RESP 16; TEMP 36.6; O2SAT 98
== END 2024-07-07 13:53 | disposition home or self-care (01) ==
LOC: MEDOUTP 12:51 → MS3 12:52
PROVIDERS: PCP Internal Medicine; Referring Provider Internal Medicine; Visit Provider Internal Medicine
DX: N39.0 Urinary tract infection, site not specified (principal)
CPT/HCPCS: 96365; A4216

== ENCOUNTER 2024-07-08 11:55 | Outpatient (CLI) | payer MEDICARE, SELFPAY ==
[2024-07-08 12:26] VITALS: BP 117/58; PULSE 75; RESP 16; TEMP 36.3; O2SAT 98
[2024-07-08] MEDS: 0.9% NaCl Peripheral Flush Adult/Peds IV (12:31)
[2024-07-08] MEDS: 0.9% NaCl IVPB Med Flush (250 mL) 15 ML IV (12:31)
[2024-07-08] MEDS: Cefepime HCl 2 GM in 0.9% Normal Saline (100mL MB+) 100 ML IV (12:38)
[2024-07-08 13:46] VITALS: BP 120/59; PULSE 55; RESP 16; TEMP 36.3
== END 2024-07-08 23:59 | disposition home or self-care (01) ==
LOC: MEDOUTP 11:55
PROVIDERS: PCP Internal Medicine; Referring Provider Internal Medicine; Visit Provider Internal Medicine
DX: N39.0 Urinary tract infection, site not specified (principal)
CPT/HCPCS: 96365; J7050; A4216

== ENCOUNTER 2024-11-19 11:11 | Day surgery (SDC) | payer MEDICARE, SELFPAY ==
--- NOTE | 2024-11-06 13:06 | EKG12_ITS ---
Test Reason : PRE OP Blood Pressure : */* mmHG Vent. Rate : 78 BPM Atrial Rate : 78 BPM P-R Int : 160 ms QRS Dur : 96 ms QT Int : 372 ms P-R-T Axes : 69 54 42 degrees QTcB Int : 424 ms Normal sinus rhythm Possible Left atrial enlargement ST abnormality, possible digitalis effect Abnormal ECG Confirmed by TIMUR TYSON, KIERRA ([id number]), tape editor MORE MUNOZ ([id number]) on 11/07/2024 6:28:23 AM Referred By: Flash Becker Confirmed By: KIERRA DING MD
[2024-11-06 14:18] LABS: Hemoglobin 14.8 g/dL (13.0-16.5); Mean Corp Hgb Conc 33.6 g/dL (32-36); Mean Corpuscular Hgb 29.8 pg (27.0-32.0); Mean Corpuscular Volume 88.7 fL (80-94); Mean Platelet Vol. 10.7 fl (6.2-12.0); Platelet Count 212 K/mm3 (150-450); RBC Distribution Width CV 12.6 % (11.6-14.6); RBC Distribution Width SD 40.9 fl (35.1-43.9); Red Blood Count 4.96 M/mm3 (4.6-6.2); White Blood Count 6.5 K/mm3 (4.4-11.0)
[2024-11-06 14:51] LABS: Anion Gap 5 (5-15); BUN 12 mg/dL (7-18); BUN/Creat Ratio 12.2 RATIO (10-20); Calcium,Total 9.5 mg/dL (8.5-10.1); Chloride 104 mmol/L (98-107); Creatinine, Serum 0.98 mg/dL (0.70-1.30); EST Glomerular Filtration Rate 79 mL/min (>60); Est Glom Filt Rate - Afr Amer 95 mL/min (>60); Glucose 114 mg/dL (74-106); Sodium Level 140 mmol/L (136-145)
--- NOTE | 2024-11-10 12:37 | PAT.ANE_ITS ---
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 When Was Last Pacemaker Check QUESTION #4 FULL TEXT: You/Your Family Experience fever (hyperthermia) with Anesthesia Last Oral Intake Last Oral intake: Last Oral Intake NPO since Meds taken in AM with sips of water? 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 Has anyone observed you stop No 11/06/24 12:53 breathing during sleep? STOP Results Negative 11/06/24 12:53 QUESTION #5 FULL TEXT : Do you snore loudly (louder than talking or can be heard through closed doors)? 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 Specify any problems Hx of Preganancy in last 3 N/A 11/06/24 12:53 Months Nurse Filling Out Transfusion NBUCHER 11/06/24 12:53 & Questions: Date: 11/06/24 11/06/24 12:53 Time: 12:54 11/06/24 12:53 Patient unable to answer at this time (ie. 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 Hx Now No 11/06/24 12:53 Gestational Age (in weeks): EDC: Hx Hx Para Hx Section SAB No 11/06/24 12:53 [facility] Medical History (Updated 11/06/24 @ 13:07 by Nica Loredo) History of echocardiogram History of stress test Former smoker Wears glasses Non-smoker Hypertension Cardiology follow-up encounter Abnormal Heart Score CT Atherosclerosis of coronary artery without angina pectoris Tobacco use Hemorrhoid Syncope (01/27/20) BPH (benign prostatic hyperplasia) Erectile dysfunction Diverticulosis Hearing loss Osteoarthritis Bradycardia Hyperlipidemia Essential (primary) hypertension Abnormal nuclear stress test Left bundle branch block (LBBB) Home Medications ?Medication ?Instructions ?Recorded ?Last Taken ?Type atorvastatin 20 mg tablet 20 mg PO QHS cholesterol 07/23/19 08/14/23 History aspirin 81 mg tablet,delayed 81 mg PO QDAY #30 tabs 03/24/20 08/09/23 Rx release (Adult Low Dose Aspirin) cholecalciferol (vitamin D3) 50 2,000 unit PO DAILY supplement 08/05/20 08/14/23 History mcg (2,000 unit) capsule atenolol 25 mg tablet 12.5 mg PO Q OTHER DAY heart 10/19/21 Unknown History Allergy/AdvReac Type Severity Reaction Status Date / Time No Known Allergies Allergy Verified 11/06/24 12:52 Family History (Reviewed 12/20/23 @ 15:01 by Amna Purdy ADJUNCT PHILOSOPHY FACULTY, ADJUNCT PHILOSOPHY FACULTY-C) Mother CAD (coronary artery disease) Heart disease Hypertension Hyperlipidemia Sister CAD (coronary artery disease) CABG, Carotid Disease Father ETOH abuse Sister Breast cancer Surgical History (Updated 11/06/24 @ 13:07 by Nica Loredo) History of cardiac catheterization History of colonoscopy History of left heart catheterization (04/01/20) History of cataract surgery History of transurethral resection of prostate Social History (Reviewed 12/20/23 @ 15:01 by Amna Purdy ADJUNCT PHILOSOPHY FACULTY, ADJUNCT PHILOSOPHY FACULTY-C) Smoking Status: Former smoker how long ago did patient quit smokin years ago alcohol intake: never substance use type: does not use caffeine: No Audit: Pertinent Findings Pertinent Findings EKG Perinent findings: 11/07/2024 normal sinus rhythm possible left atrial enlargement ST abnormality possible digitalis effect Consult pertinent findings: Cardiology 12/20/2023 coronary artery disease chronic ejection fraction 60% stable to left bundle branch block chronic 3 hypertension chronic follow-up in 12 months Recommendation Anesthesia Recommendation Anesthesia recommendation: OPTIMIZED for anesthesia
[2024-11-19] VITALS (11 sets, daily range): BP systolic 121–141; BP diastolic 63–75; PULSE 48–60; RESP 12–16; TEMP 36.3–37.1; O2SAT 96–100; BMI 22.1
[2024-11-19] MEDS: 0.9% Normal Saline (1000mL) 1,000 ML 15 ML IV (11:47)
--- NOTE | 2024-11-19 12:32 | PRE.ANES_ITS ---
ASA Classification* ASA Classification ASA Classification: 3 Assessment & Plan Anesthesia* Anesthesia Assessment Anesthesia Assessment: Discussed sedation and/or anesthesia options, risks, benefits, and alternatives with patient/parents/legal guardian/POA. Questions invited. The patient/parents/legal guardian/POA seems to understand and agrees to proceed with anesthesia plan. Reviewed the physical assessment, medical history, allergy history and patient home medications list prior to surgery/procedure/anesthetic and documented any changes. Performed airway and anesthesia risk assessments. Anesthesia Type Anesthesia Type: General Anesthesia Focused Assessment* Temperature: 98.8 F Pulse Rate: 60 Blood Pressure: 134/65 Respiratory Rate: 12 Pulse Ox: 100 Airway Assessment Mouth opens: >3 cm Mallampati Score: II Focused Labs Anesthesia Preop lab: CBC WBC 6.5 K/mm3 (4.4-11.0) 11/06/24 13:15 RBC 4.96 M/mm3 (4.6-6.2) 11/06/24 13:15 Hgb 14.8 g/dL (13.0-16.5) 11/06/24 13:15 Hct 44.0 % (40-54) 11/06/24 13:15 Plt Count 212 K/mm3 (150-450) 11/06/24 13:15 CHEMISTRY Potassium 4.0 mmol/L (3.5-5.1) 11/06/24 13:15 Sodium 140 mmol/L (136-145) 11/06/24 13:15 BUN 12 mg/dL (7-18) 11/06/24 13:15 Creatinine 0.98 mg/dL (0.70-1.30) 11/06/24 13:15 Glucose 114 mg/dL (74-106) H 11/06/24 13:15 TSH 3.34 uIU/mL (0.358-3.74) 08/18/19 10:55 COAG Pre-Assessment Diagnosis/Proposed Procedure Planned Operative Procedure(s): Cysto,Incision Bladder Neck Constriction Anesthesia History 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 When Was Last Pacemaker Check QUESTION #4 FULL TEXT: You/Your Family Experience fever (hyperthermia) with Anesthesia Last Oral Intake Last Oral intake: Last Oral Intake NPO since 23:00 11/19/24 11:39 Meds taken in AM with sips of No 11/19/24 11:39 water? 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 Female No 11/06/24 12:53 HX of Motion Sickness No 11/06/24 12:53 HX of N/V After Surgery No 11/06/24 12:53 Non-Smoker Yes 11/06/24 12:53 Duration of Surgery greater Yes 11/06/24 12:53 than 60 minutes Number of Risk Factors 2 11/06/24 12:53 PONV Score Moderate Risk 11/06/24 12:53 Height & Weight Height & Weight: Anesthesia: Height & Weight Height 5 ft 7 in 11/19/24 11:39 Weight: 64 kg 11/19/24 11:39 Body Mass Index (BMI) 22.1 11/19/24 11:39 Respiratory Assessment Respiratory Assessment - 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 Has anyone observed you stop No 11/06/24 12:53 breathing during sleep? STOP Results Negative 11/06/24 12:53 QUESTION #5 FULL TEXT : Do you snore loudly (louder than talking or can be heard through closed doors)? 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 Specify any problems Hx of Preganancy in last 3 N/A 11/06/24 12:53 Months Nurse Filling Out Transfusion NBUCHER 11/06/24 12:53 & Questions: Date: 11/06/24 11/06/24 12:53 Time: 12:54 11/06/24 12:53 Patient unable to answer at this time (ie. 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: /Reproductive Hx- high school combination teacher Hx Now No 11/06/24 12:53 Gestational Age (in weeks): EDC: Hx Hx Para Hx Section SAB No 11/06/24 12:53 Active Medications Active Medications: Current Medications Generic Name Dose Route Start Last Admin Trade Name Freq PRN Reason Stop Dose Admin Sodium Chloride 1,000 mls @ 15 mls/hr 11/19/24 11:30 11/19/24 11:47 IV 11/25/24 00:49 15 mls/hr .Q48H JOSSIE Administration Protocol PFSH Medical History History of echocardiogram History of stress test Former smoker Wears glasses Non-smoker Hypertension Cardiology follow-up encounter Abnormal Heart Score CT Atherosclerosis of coronary artery without angina pectoris Tobacco use Hemorrhoid Syncope (01/27/20) BPH (benign prostatic hyperplasia) Erectile dysfunction Diverticulosis Hearing loss Osteoarthritis Bradycardia Hyperlipidemia Essential (primary) hypertension Abnormal nuclear stress test Left bundle branch block (LBBB) Home Medications ?Medication ?Instructions ?Recorded ?Last Taken ?Type atorvastatin 20 mg tablet 20 mg PO QHS cholesterol 07/23/19 11/18/24 History aspirin 81 mg tablet,delayed 81 mg PO QDAY #30 tabs 03/24/20 11/07/24 Rx release (Adult Low Dose Aspirin) cholecalciferol (vitamin D3) 50 2,000 unit PO DAILY supplement 08/05/20 11/18/24 History mcg (2,000 unit) capsule atenolol 25 mg tablet 12.5 mg PO Q OTHER DAY heart 10/19/21 11/18/24 History Allergy/AdvReac Type Severity Reaction Status Date / Time No Known Allergies Allergy Verified 11/19/24 11:38 Family History Mother CAD (coronary artery disease) Heart disease Hypertension Hyperlipidemia Sister CAD (coronary artery disease) CABG, Carotid Disease Father ETOH abuse Sister Breast cancer Surgical History History of cardiac catheterization History of colonoscopy History of left heart catheterization (04/01/20) History of cataract surgery History of transurethral resection of prostate Social History Smoking Status: Former smoker how long ago did patient quit smokin years ago alcohol intake: never substance use type: does not use caffeine: No Review of Systems (Anesthesia) ROS Narrative System reviewed and no additional complaints, except as documented.
--- NOTE | 2024-11-19 13:17 | PCM.HP.STD ---
HPI - General General Date of Service: 11/19/24 HPI Narrative RUFINO VALADEZ, is a 79 M who presents for a transurethral incision of bladder neck contracture [facility] Medical History History of echocardiogram History of stress test Former smoker Wears glasses Non-smoker Hypertension Cardiology follow-up encounter Abnormal Heart Score CT Atherosclerosis of coronary artery without angina pectoris Tobacco use Hemorrhoid Syncope (01/27/20) BPH (benign prostatic hyperplasia) Erectile dysfunction Diverticulosis Hearing loss Osteoarthritis Bradycardia Hyperlipidemia Essential (primary) hypertension Abnormal nuclear stress test Left bundle branch block (LBBB) Home Medications ?Medication ?Instructions ?Recorded ?Last Taken ?Type atorvastatin 20 mg tablet 20 mg PO QHS cholesterol 07/23/19 11/18/24 History aspirin 81 mg tablet,delayed 81 mg PO QDAY #30 tabs 03/24/20 11/07/24 Rx release (Adult Low Dose Aspirin) cholecalciferol (vitamin D3) 50 2,000 unit PO DAILY supplement 08/05/20 11/18/24 History mcg (2,000 unit) capsule atenolol 25 mg tablet 12.5 mg PO Q OTHER DAY heart 10/19/21 11/18/24 History Allergy/AdvReac Type Severity Reaction Status Date / Time No Known Allergies Allergy Verified 11/19/24 11:38 Family History Mother CAD (coronary artery disease) Heart disease Hypertension Hyperlipidemia Sister CAD (coronary artery disease) CABG, Carotid Disease Father ETOH abuse Sister Breast cancer Surgical History History of cardiac catheterization History of colonoscopy History of left heart catheterization (04/01/20) History of cataract surgery History of transurethral resection of prostate Social History Smoking Status: Former smoker how long ago did patient quit smokin years ago alcohol intake: never substance use type: does not use caffeine: No Vital Signs Vital Signs Vital Signs: 11/19/24 11:39 11/19/24 11:39 11/19/24 12:33 Temperature 98.8 F 98.8 F Temperature Source Temporal Pulse Rate 60 60 Respiratory Rate 12 12 Respiratory Pattern Normal Blood Pressure 134/65 H 134/65 H Blood Pressure Mean 88 Blood Pressure Source Monitor Blood Pressure Position Semi-Fowlers Blood Pressure Location Left Arm Pulse Ox 100 100 Oxygen Delivery Method Room Air Weight Weight: 64 kg Body Mass Index (BMI) 22.1 Results Lab / Micro Data 11/06/24 13:15 11/06/24 13:15
--- NOTE | 2024-11-19 13:17 | PCM.DC ---
Discharge Instructions Diet Discharge Diet: No restrictions DC O2, CPAP, BIPAP needs Home O2 Discharge instructions: No Dressing / Incision Discharge Activity: Return to Normal Activity and May Not Drive (while taking narcotic pain medications.) Dressing / Incision Call your doctor if you observe: Fever of 101 or Higher Catheter: Li to leg bag and Li to large bag Drain: [place] Follow Up Care Please Follow Up With: Flash Becker MD When: Call [phone] for an appointment Test Results: Test results from this visit will be discussed in further detail at your follow-up appointment, if applicable. Discharge Plan Admission Primary Reason for Your Visit: keith Attending Provider: Flash Becker Primary Care Provider: Melissa العراقي Instructions Print Language: Citizen Of [place] Discharge Orders/Prescriptions Prescriptions: Continued aspirin [Adult Low Dose Aspirin] 81 mg tablet,delayed release (DR/EC) 81 mg PO QDAY Qty: 30 3RF atenolol 25 mg tablet 12.5 mg PO Q OTHER DAY Rx Instructions: every other day atorvastatin 20 MG tablet 20 mg PO QHS cholecalciferol (vitamin D3) 2,000 UNIT capsule 2,000 unit PO DAILY Other Ambulatory Orders: 12 Lead EKG (Routine) Timeframe: 20241106 Location: None Selected Ordered By: Dr. Yusuf Caballero Referrals / Follow Up: Melissa العراقي DO [Primary Care Provider] - Flash Becker MD [Med Staff - Active Staff] - Disposition Disposition (needs filled in before D/C Order can be placed): Home, Self Care
[2024-11-19] MEDS: Cefazolin 2 GM in Syringe IV (13:25)
--- NOTE | 2024-11-19 13:32 | OP.PCM_ITS ---
Operative Report (Standard) Operative Information Date of Procedure: 11/19/24 Pre-Operative Diagnosis: Obstructive prostate Post-Operative Diagnosis: The same Surgery/Procedure Performed: Transurethral incision of the prostate chainsaw mechanic: No Type of Anesthesia: General RN Documented Start/Stop Times: Operation Date: 11/19/24 13:25 Case Time Into Pre-Op 11/19/24 11:26 Out of Pre-Op 11/19/24 13:06 Anesthesia Start 11/19/24 13:10 Into Room 11/19/24 13:10 Procedure Start Time: 13:15 Procedure Stop Time: 13:32 Select all DRAINS/GRAFTS/IMPLANTS that apply: Drains Drain details: 20 Sammarinese catheter Estimated Blood Loss: 0 Specimen collected: No Description of surgery: Patient is takeback to the operating room at this with duction of anesthesia space and dorsolithotomy position. When of the bladder with a 24 Sammarinese noncontinuous flow Olympus bipolar resectoscope I used the needle electrode on the bipolar resectoscope he had a scarred and prostate with a very limited open channel within the prostatic channel, I then used a needle electrode to make an incision at the 5:00 cut elevated down to the muscle fibers next of the ureteral orifice and back to the verumontanum and then made another incision at 7:00 cut away through the muscle fibers back to the verumontanum back to the ureteral orifice had a wide open channel at this point did a flow test and a wide open flow and then put a 20 Sammarinese catheter into the bladder for gravity drainage placement patient will go home with a catheter hold all blood thinners and will see me in the office next week for catheter removal. Surgical Findings: Scarred down prostate urethra Complications Complications: No Admit VTE Documentation VTE Present on Admission: No VTE Mechan Device Prophylaxis: SCD's VTE Pharm Prophylaxis ordered?: No
--- NOTE | 2024-11-19 13:49 | PCM.POST.ANE ---
Anesthesia: Postop Eval I Current Vital Signs Temperature: 97.5 F Pulse Rate: 51 Blood Pressure: 141/67 Respiratory Rate: 12 Pulse Ox: 100 Oxygen Delivery Method: Nasal Cannula Oxygen Flow Rate (L/min): 2 Assessment Airway patent: Yes Spontaneous unlabored respirations: Yes Mental status: Calm and Asleep nausea: No Vomiting: No Anesthesia Complication: No Fluid Hydration Crystalloid volume administer (ml): 800 Total IV fluid infused: 800 Progress Note Anesthesia document: Postop Eval 1 completed: Yes
--- NOTE | 2024-11-19 15:05 | POSTOPAN2_ITS ---
Anesthesia Postop Eval I Sum Postop Eval Completion status Anesthesia document: Postop Eval 1 completed: Yes Anesthesia Postop Eval I Summary Anesthesia Postop Eval I Summary: Anesthesia Postop Eval I: Assessment Summary Airway patent Yes 11/19/24 13:50 [email or web address].[email or web address] Spontaneous unlabored Yes 11/19/24 13:50 PROFESSIONAL CASTER.[email or web address] respirations Mental status Calm,Asleep 11/19/24 13:50 PROFESSIONAL CASTER.[email or web address] nausea No 11/19/24 13:50 PROFESSIONAL CASTER.GDOTT Vomiting No 11/19/24 13:50 PROFESSIONAL CASTER.[email or web address] Anesthesia Postop Eval I: Fluid Summary Crystalloid volume administer 800 11/19/24 13:50 PROFESSIONAL CASTER.GDOTT (ml) Colloids volume administered ( ml) Blood Product volume administered (ml) Total IV fluid infused 800 11/19/24 13:50 PROFESSIONAL CASTER.GDOTT Anesthesia Postop Eval I: Summary Notes Anesthesia Complication No 11/19/24 13:50 PROFESSIONAL CASTER.GDOTT Anesthesia Complication Comment: Post-operative progress note Anesthesia: Postop Eval II Evaluation Mental status: Awake Pain Level: 0 nausea: No Vomiting: No
--- NOTE | 2024-11-19 15:05 | PCM.POSTANE2 ---
Anesthesia Postop Eval I Sum Postop Eval Completion status Anesthesia document: Postop Eval 1 completed: Yes Anesthesia Postop Eval I Summary Anesthesia Postop Eval I Summary: Anesthesia Postop Eval I: Assessment Summary Airway patent Yes 11/19/24 13:50 GROUP INSURANCE SPECIALIST.[email or web address] Spontaneous unlabored Yes 11/19/24 13:50 GROUP INSURANCE SPECIALIST.GDOTT respirations Mental status Calm,Asleep 11/19/24 13:50 GROUP INSURANCE SPECIALIST.GDOTT nausea No 11/19/24 13:50 GROUP INSURANCE SPECIALIST.GDOTT Vomiting No 11/19/24 13:50 GROUP INSURANCE SPECIALIST.GDOTT Anesthesia Postop Eval I: Fluid Summary Crystalloid volume administer 800 11/19/24 13:50 GROUP INSURANCE SPECIALIST.GDOTT (ml) Colloids volume administered ( ml) Blood Product volume administered (ml) Total IV fluid infused 800 11/19/24 13:50 GROUP INSURANCE SPECIALIST.GDOTT Anesthesia Postop Eval I: Summary Notes Anesthesia Complication No 11/19/24 13:50 GROUP INSURANCE SPECIALIST.GDOTT Anesthesia Complication Comment: Post-operative progress note Anesthesia: Postop Eval II Evaluation Mental status: Awake Pain Level: 0 nausea: No Vomiting: No
== END 2024-11-19 15:50 | disposition home or self-care (01) ==
LOC: SDC 11:12 → AC 11:13
PROVIDERS: Anesthesiology; PCP Internal Medicine; Referring Provider Urology; Visit Provider Urology
PROC: 0TBB8ZZ Excision of Bladder, Via Natural or Artificial Opening Endoscopic (ICD-10-PCS; CPT 52601; principal; 2024-11-19 13:15)
DX: N40.0 Benign prostatic hyperplasia without lower urinary tract symptoms (principal); I25.10 Atherosclerotic heart disease of native coronary artery without angina pectoris; Z87.891 Personal history of nicotine dependence; I10 Essential (primary) hypertension; E78.5 Hyperlipidemia, unspecified; Z79.899 Other long term (current) drug therapy; Z79.82 Long term (current) use of aspirin
CPT/HCPCS: 52601; 00914

== ENCOUNTER 2024-11-19 21:56 | Observation (INO) | payer MEDICARE, SELFPAY ==
[2024-11-19 21:56] VITALS: PULSE 135; RESP 19; TEMP 36.6; O2SAT 100; BMI 22.7
[2024-11-19 21:58] VITALS: BP 112/98; PULSE 139; RESP 19; TEMP 36.6; O2SAT 100
--- NOTE | 2024-11-19 22:24 | EX.ED.DYSGE1 ---
HPI History of Present Illness Chief Complaint: Complaint Detail of Chief Complaint: Gross hematuria, no urine flow in Li and abdominal discomfort with diste Informant: patient Onset/Context/Timing Onset: Today and Hours Context: Sudden Onset Timing: Continuous Quality: Gross hematuria and no output noted for the past couple of hours Location: Current Severity: Severe Maximum Severity: Severe Worsened by: Palpation of suprapubic area Relieved by: Nothing Associated Symptoms Associated Symptoms: Lightheadedness Narrative Narrative: Patient is a 79-year-old male. Patient had a transurethral incision of the prostate performed by Dr. Becker today. Operative report was reviewed. Patient was discharged home with a Li. Patient presents because gross blood followed by no urine output followed by lower abdominal pain and distention. Patient does report pain and lightheadedness. He has no other complaints. Patient has a history of BPH, hyperlipidemia, essential hypertension, atherosclerotic coronary artery disease and left bundle branch block noted on EKG. Patient has no history of bruising easily or bleeding problems. Prior similar symptoms: No Recent Illness/Hospitalization: Yes PFSH PFSH Medical History History of echocardiogram History of stress test Former smoker Wears glasses Non-smoker Hypertension Cardiology follow-up encounter Abnormal Heart Score CT Atherosclerosis of coronary artery without angina pectoris Tobacco use Hemorrhoid Syncope (01/27/20) BPH (benign prostatic hyperplasia) Erectile dysfunction Diverticulosis Hearing loss Osteoarthritis Bradycardia Hyperlipidemia Essential (primary) hypertension Abnormal nuclear stress test Left bundle branch block (LBBB) Home Medications ?Medication ?Instructions ?Recorded ?Last Taken ?Type atorvastatin 20 mg tablet 20 mg PO QHS cholesterol 07/23/19 11/18/24 History aspirin 81 mg tablet,delayed 81 mg PO QDAY #30 tabs 03/24/20 11/07/24 Rx release (Adult Low Dose Aspirin) cholecalciferol (vitamin D3) 50 2,000 unit PO DAILY supplement 08/05/20 11/18/24 History mcg (2,000 unit) capsule atenolol 25 mg tablet 12.5 mg PO Q OTHER DAY heart 10/19/21 11/18/24 History Allergy/AdvReac Type Severity Reaction Status Date / Time No Known Allergies Allergy Verified 11/19/24 21:56 Family History Mother CAD (coronary artery disease) Heart disease Hypertension Hyperlipidemia Sister CAD (coronary artery disease) CABG, Carotid Disease Father ETOH abuse Sister Breast cancer Surgical History History of cardiac catheterization History of colonoscopy History of left heart catheterization (04/01/20) History of cataract surgery History of transurethral resection of prostate Social History Smoking Status: Former smoker how long ago did patient quit smokin years ago alcohol intake: never substance use type: does not use caffeine: No ROS ROS ED Constitutional Constitutional ED: Denies chills, fever(s), subjective, sweats or weight loss Eyes Eyes: Denies blurry vision or change in vision Cardiovascular Cardiovascular: Reports racing heartbeat; Denies chest pain or palpitations Respiratory/Chest Respiratory/Chest: Denies cough, dyspnea or dyspnea on exertion Gastrointestinal Gastrointestinal: Reports abdominal pain; Denies constipation, diarrhea, melena, nausea or vomiting Genitourinary Genitourinary ED: Reports hematuria and other Details: Now there is no urine output noted. Musculoskeletal Musculoskeletal: Denies arthralgias, back pain or myalgias Integumentary Denies rash Neurologic Neurologic: Denies paresthesias or weakness Hematologic/Lymphatic Hematologic/Lymphatic: Reports systems reviewed and no addt'l complaints, except as documented EXAM Physical Exam Const Vital Signs: 11/19/24 21:56 11/19/24 21:58 11/19/24 22:58 Temperature 98 F 98 F 97.7 F L Temperature Source Temporal Temporal Pulse Rate 135 H 139 H 75 Respiratory Rate 19 H 19 H 18 Blood Pressure 112/98 H 142/67 H Blood Pressure Mean 102 92 Pulse Ox 100 100 99 Oxygen Delivery Method Room Air Room Air Blood pressure 2258 is 142/67 with a heart rate of 75. Suspect this was due to the obstruction and bladder distention. Positive well nourished and well developed General Appearance ED: well developed; Negative for pallor HEENT Reports dry mucous membranes Mouth ED: Yes dry mucous membranes Mouth: dry mucous membranes Eyes PERRL and EOMs intact bilaterally General Eye ED: Negative for pale conjunctiva or scleral icterus Neck no lymphadenopathy, supple and no JVD Resp normal respiratory effort and clear to auscultation bilaterally Cardio regular rhythm, S1 normal heart sound, S2 normal heart sound and no murmurs Rate: tachycardic GI non-distended; Negative for normal to inspection, nondistended, normoactive bowel sounds, non-tender, hepatosplenomegaly or no masses GI Narrative: Bladder is enlarged and palpable several fingers above the pubic symphysis. Nurse is unable to flush the Li/irrigate the Li. There is gross blood noted in the tubing. Palpation: soft, tender suprapubic, guarding other (Suprapubic area) and mass other (Distended bladder); Negative for splenomegaly Narrative: Documented under the GI portion of the EMR Back/Spine no CVA tenderness Extremity normal to inspection General Extremety ED: Negative for edema or tenderness General Extremity: Negative for edema Neuro oriented x3 and CN's II-XII intact bilaterally Sensorium / Orientation: alert Psych mental status grossly normal Skin no rashes or lesions noted, no wounds and skin turgor normal General Skin Exam: Negative for jaundice or pallor MDM MDM MDM Narrative Medical decision making narrative: Patient with gross bleeding with clots and obstruction of Li status post transurethral resection by Dr. Becker earlier today. Prior to pulling the Li he was contacted to ascertain whether this would be acceptable and no difficulty reinserting a three-way. He agreed with placement of three-way. Plan is to admit patient. Patient will not go to the floor until his labs are back since he is tachycardic with a rate of 1 35-1 40. This may be due to pain. When nurse remove the Li he screamed in pain and had a near vasovagal syncopal episode. Plan is continuous irrigation with 3 L of normal saline. Assess H&H and renal function. History & Record Review Additional record(s) reviewed:: Prior outpatient record (Operative note was read as well as anesthesia note.) and Prior labs Lab Data Attestation: I reviewed the patient's lab results. Lab results narrative: White count is slightly elevated. H&H is unchanged from prior. Creatinine is elevated from baseline to 1.34 with an estimated GFR 55. Glucose is elevated 206 with low CO2 of 19 and normal anion gap. Labs: Laboratory Results - last 24 hr 11/19/24 22:45 WBC 11.3 H RBC 4.88 Hgb 14.8 Hct 42.1 MCV 86.3 MCH 30.3 MCHC 35.2 RDW Std Deviation 38.7 RDW Coeff of Treva 12.3 Plt Count 228 MPV 10.5 Immature Gran % (Auto) 0.300 Neut % (Auto) 93.7 H Lymph % (Auto) 3.9 L [place] % (Auto) 2.0 Eos % (Auto) 0.0 Baso % (Auto) 0.1 Absolute Neuts (auto) 10.6 H Absolute Lymphs (auto) 0.44 L Nucleated RBC % 0 Sodium 136 Potassium 3.8 Chloride 106 Carbon Dioxide 19.0 L Anion Gap 11 BUN 16 Creatinine 1.34 H Estim Creat Clear Calc 42.27 Est GFR (MDRD) Af Amer 66 Est GFR (MDRD) Non-Af 55 L BUN/Creatinine Ratio 11.9 Glucose 206 H Calcium 9.5 White count slightly elevated with demargination from pain. Patient's vitals improved after Li was placed and obstruction was alleviated. Discharge Plan Dx/Rx/DC Orders Clinical Impression: Gross hematuria, Atherosclerosis of coronary artery without angina pectoris, Essential (primary) hypertension, Hyperlipidemia, Obstruction of urinary stent, Sinus tachycardia, Vaso-vagal reaction, Elevated serum creatinine, Nondiabetic hyperglycemia, Metabolic acidosis, normal anion gap (NAG) Disposition Disposition: Acute Care Hospital [facility]
[2024-11-19 22:55] LABS: Absolute Lymphocyte Count 0.44 X10^3/uL (0.83-4.51); Absolute Neutrophil Count 10.6 X10^3/uL (2.0-7.7); Basophil# 0.01 X10^3/uL; Basophil% 0.1 % (0-1); Hematocrit 42.1 % (40-54); Hemoglobin 14.8 g/dL (13.0-16.5); Lymphocyte # 0.44 X10^3/ul (0.83-4.51); Lymphocyte % 3.9 % (19-41); Mean Corp Hgb Conc 35.2 g/dL (32-36); Mean Corpuscular Hgb 30.3 pg (27.0-32.0); Mean Corpuscular Volume 86.3 fL (80-94); Mean Platelet Vol. 10.5 fl (6.2-12.0); Monocyte# 0.22 X10^3/uL; NRBC Flagged by Analyzer 0 % (0-5); Neutrophil # 10.56 X10^3/uL (2.7-7.7); Neutrophil % 93.7 % (47-70); POSITIVE DIFFERENTIAL YES; Platelet Count 228 K/mm3 (150-450); RBC Distribution Width CV 12.3 % (11.6-14.6); RBC Distribution Width SD 38.7 fl (35.1-43.9); Red Blood Count 4.88 M/mm3 (4.6-6.2); White Blood Count 11.3 K/mm3 (4.4-11.0)
[2024-11-19 22:58] VITALS: BP 142/67; PULSE 75; RESP 18; TEMP 36.5; O2SAT 99
[2024-11-19 23:11] LABS: Anion Gap 11 (5-15); BUN 16 mg/dL (7-18); BUN/Creat Ratio 11.9 RATIO (10-20); Calcium,Total 9.5 mg/dL (8.5-10.1); Chloride 106 mmol/L (98-107); Creatinine, Serum 1.34 mg/dL (0.70-1.30); EST Glomerular Filtration Rate 55 mL/min (>60); Est Glom Filt Rate - Afr Amer 66 mL/min (>60); Estimated Creatinine Clearance 42.27 ml/min; Glucose 206 mg/dL (74-106); Potassium 3.8 mmol/L (3.5-5.1); Sodium Level 136 mmol/L (136-145)
[2024-11-20 00:54] VITALS: BMI 21.7
[2024-11-20 01:00] VITALS: BP 117/58; PULSE 62; RESP 18; TEMP 36.7; O2SAT 98
[2024-11-20 05:36] VITALS: BP 124/60; PULSE 65; RESP 18; TEMP 36.5; O2SAT 99
--- NOTE | 2024-11-20 07:12 | PCM.HP.STD ---
HPI - General General Date of Admission: 11/19/24 Date of Service: 11/19/24 Chief Complaint: gross hematuria HPI Narrative RUFINO VALADEZ, is a 79 M who presents to ER with bleeding s/p TUIP admitted for CBI, currenty still bleeding continue with CBI [facility] Medical History History of echocardiogram History of stress test Former smoker Wears glasses Non-smoker Hypertension Cardiology follow-up encounter Abnormal Heart Score CT Atherosclerosis of coronary artery without angina pectoris Tobacco use Hemorrhoid Syncope (01/27/20) BPH (benign prostatic hyperplasia) Erectile dysfunction Diverticulosis Hearing loss Osteoarthritis Bradycardia Hyperlipidemia Essential (primary) hypertension Abnormal nuclear stress test Left bundle branch block (LBBB) Home Medications ?Medication ?Instructions ?Recorded ?Last Taken ?Type atorvastatin 20 mg tablet 20 mg PO QHS cholesterol 07/23/19 11/18/24 History aspirin 81 mg tablet,delayed 81 mg PO QDAY #30 tabs 03/24/20 11/07/24 Rx release (Adult Low Dose Aspirin) cholecalciferol (vitamin D3) 50 2,000 unit PO DAILY supplement 08/05/20 11/18/24 History mcg (2,000 unit) capsule atenolol 25 mg tablet 12.5 mg PO Q OTHER DAY heart 10/19/21 11/18/24 History Allergy/AdvReac Type Severity Reaction Status Date / Time No Known Allergies Allergy Verified 11/19/24 21:56 Family History Mother CAD (coronary artery disease) Heart disease Hypertension Hyperlipidemia Sister CAD (coronary artery disease) CABG, Carotid Disease Father ETOH abuse Sister Breast cancer Surgical History History of cardiac catheterization History of colonoscopy History of left heart catheterization (04/01/20) History of cataract surgery History of transurethral resection of prostate Social History Smoking Status: Former smoker how long ago did patient quit smokin years ago alcohol intake: never substance use type: does not use caffeine: No ROS Constitutional Constitutional: Denies chills, fever(s) or malaise Eyes Eyes: Denies blurry vision or change in vision ENT HEENT: Reports none Cardiovascular Cardiovascular: Denies chest pain or palpitations Respiratory/Chest Respiratory/Chest: Denies cough or shortness of breath with exertion Gastrointestinal Gastrointestinal: Denies abdominal pain, constipation or diarrhea Musculoskeletal Musculoskeletal: Denies back pain, joint stiffness or joint swelling Integumentary Integumentary: Denies dry skin, jaundice, lesions or rash Neurologic Neurologic: Denies confusion, syncope or weakness Psychiatric Psychiatric: Reports none; Denies anxiety or depression Endocrine Endocrinology: Denies excessive sweating, fatigue or flushing Hematologic/Lymphatic Hematologic/Lymphatic: Denies anemia, easy bleeding or easy bruising Vital Signs Vital Signs Vital Signs: 11/19/24 21:56 11/19/24 21:58 11/19/24 22:58 Temperature 98 F 98 F 97.7 F L Temperature Source Temporal Temporal Pulse Rate 135 H 139 H 75 Respiratory Rate 19 H 19 H 18 Respiratory Effort Respiratory Depth Respiratory Pattern Blood Pressure 112/98 H 142/67 H Blood Pressure Mean 102 92 Blood Pressure Source Blood Pressure Position Blood Pressure Location Pulse Ox 100 100 99 Oxygen Delivery Method Room Air Room Air 11/20/24 01:00 11/20/24 01:10 11/20/24 05:36 Temperature 98.1 F 97.7 F L Temperature Source Oral Oral Pulse Rate 62 65 Respiratory Rate 18 18 Respiratory Effort Normal Non-Labored Respiratory Depth Normal Respiratory Pattern Normal Blood Pressure 117/58 L 124/60 H Blood Pressure Mean 77 81 Blood Pressure Source Monitor Monitor Blood Pressure Position Semi-Fowlers Semi-Fowlers Blood Pressure Location Left Arm Left Arm Pulse Ox 98 99 Oxygen Delivery Method Room Air Room Air Room Air Weight Weight: 62.9 kg Body Mass Index (BMI) 21.7 Physical Exam Const alert and oriented x3 General Appearance: cooperative HEENT normocephalic and head/scalp atraumatic Eyes PERRL and EOMs intact bilaterally Neck supple, no JVD and no carotid bruits Resp normal respiratory effort, normal air movement and clear to auscultation bilaterally Cardio regular rate and no murmurs GI normal to inspection, nondistended, normoactive bowel sounds and soft to palpation Extremity normal capillary refill General Extremity: no tenderness to palpation of joints or extremities; Negative for edema Skin no rashes or lesions noted and no wounds General Skin Exam: no breakdown Neuro CN's II-XII intact bilaterally Psych affect normal Appearance: appropriate Results Medical Records Data Attestation: I reviewed the patient's medical records Lab / Micro Data 11/19/24 22:45 11/19/24 22:45 Labs: Laboratory Results - last 24 hr 11/19/24 22:45: WBC 11.3 H, RBC 4.88, Hgb 14.8, Hct 42.1, MCV 86.3, MCH 30.3, MCHC 35.2, RDW Std Deviation 38.7, RDW Coeff of Treva 12.3, Plt Count 228, MPV 10.5, Immature Gran % (Auto) 0.300, Neut % (Auto) 93.7 H, Lymph % (Auto) 3.9 L, [place] % (Auto) 2.0, Eos % (Auto) 0.0, Baso % (Auto) 0.1, Absolute Neuts (auto) 10.6 H, Absolute Lymphs (auto) 0.44 L, Nucleated RBC % 0, Sodium 136, Potassium 3.8, Chloride 106, Carbon Dioxide 19.0 L, Anion Gap 11, BUN 16, Creatinine 1.34 H, Estim Creat Clear Calc 42.27, Est GFR (MDRD) Af Amer 66, Est GFR (MDRD) Non-Af 55 L, BUN/Creatinine Ratio 11.9, Glucose 206 H, Calcium 9.5 Assessment & Plan Assessment/Plan (1) Gross hematuria: PLAN: Plan admit for CBI continue with irrigation.
[2024-11-20 09:57] VITALS: BP 108/57; PULSE 85; RESP 16; TEMP 37; O2SAT 95
[2024-11-20] MEDS: 0.9% Normal Saline (1000mL) 1,000 ML 125 ML IV ×2 (10:02→19:38)
--- NOTE | 2024-11-20 15:10 | CASEMGMT ---
SANDRA JIANG NOTE: RN CM to room. Pt resting in bed, @ bedside. Pt lives w/, is independent, and denies having any concerns w/going home @ discharge. Yosvany NAVARRON SANDRA JIANG
--- NOTE | 2024-11-20 16:16 | CHAPLAIN ---
Type of Pastoral Visit _x__ Initial Visit ___ Follow-up Visit ___ On-call Visit ___ General Patient Visit ___ Spiritual Assessment ___ Family Conference ___ Bereavement ___ Rapid Response ___ Code Blue ___ Other (describe below) Pastoral Care Referral From _x__ Patient ___ Family ___ Nurse ___ Physician ___ Acetone Button Paster ___ Regulatory Agency Director ___ Other (describe below) Sacrament/Intervention _x__ Active listening ___ Anointing ___ Sabianism ___ Bereavement ___ Communion ___ Maru exploration ___ _x__ Life review ___ Prayer ___ Reconciliation ___ Sacrament of Sick ___ Supportive presence ___ Wedding ___ Other (describe below) Pastoral Comments patient and spouse are in the room; pt reports that he is okay but then acknowledges that he must stay in the hospital at least another night; more casual talk and offer of presence as needed
--- NOTE | 2024-11-20 16:22 | CASEMGMT ---
Met with patient to complete ORDONEZ form. ORDONEZ form explained to patient who voiced understanding and signed form. Original form placed in pt?s chart and copy provided to patient. Elle Jay, Discharge Planning Asst
[2024-11-20 17:29] VITALS: BP 110/62; PULSE 54; RESP 16; TEMP 37.3; O2SAT 100
[2024-11-20 19:33] VITALS: BP 108/64; PULSE 57; RESP 16; TEMP 36.2; O2SAT 99
[2024-11-20] MEDS: Atorvastatin Calcium 20 MG Tablet PO (19:49)
[2024-11-21 02:45] VITALS: BP 107/54; PULSE 54; RESP 14; TEMP 36.8; O2SAT 99
[2024-11-21] MEDS: 0.9% Normal Saline (1000mL) 1,000 ML 125 ML IV (02:46)
--- NOTE | 2024-11-21 07:06 | PCM.PN.GU ---
Subjective Subjective admitted from bleeding bleeding stoped on cbi home raul munguia Objective Data Objective Data Vital Signs: Vital Signs Temp Pulse Resp BP Pulse Ox O2 Del Method 98.3 F 54 L 14 107/54 L 99 Room Air 11/21/24 02:45 11/21/24 02:45 11/21/24 02:45 11/21/24 02:45 11/21/24 02:45 11/21/24 02:45 Oxygen Delivery Method Room Air Weight: 62.9 kg Body Mass Index (BMI) 21.7 Intake & Output: Intake and Output for Last 24 Hours 11/19/24 11/20/24 11/21/24 23:59 23:59 23:59 Intake Total 956.25 / 956.25 891.67 / 891.67 Output Total 3530 / 6680 84652 / 33455 Balance -2573.75 / -5723.75 -22834.33 / -09607.33 Lab / Micro Data 11/19/24 22:45 11/19/24 22:45
[2024-11-21 07:39] LABS: Absolute Lymphocyte Count 1.93 X10^3/uL (0.83-4.51); Absolute Neutrophil Count 6.4 X10^3/uL (2.0-7.7); Basophil# 0.03 X10^3/uL; Basophil% 0.3 % (0-1); Eosinophil# 0.05 X10^3/uL; Eosinophils% 0.6 % (0-5); Hematocrit 34.6 % (40-54); Hemoglobin 11.6 g/dL (13.0-16.5); Lymphocyte # 1.93 X10^3/ul (0.83-4.51); Lymphocyte % 21.3 % (19-41); Mean Corp Hgb Conc 33.5 g/dL (32-36); Mean Corpuscular Hgb 30.3 pg (27.0-32.0); Mean Corpuscular Volume 90.3 fL (80-94); Mean Platelet Vol. 10.4 fl (6.2-12.0); Monocyte# 0.65 X10^3/uL; Monocyte% 7.2 % (0-10); NRBC Flagged by Analyzer 0 % (0-5); Neutrophil # 6.36 X10^3/uL (2.7-7.7); Neutrophil % 70.3 % (47-70); Platelet Count 172 K/mm3 (150-450); RBC Distribution Width CV 13.2 % (11.6-14.6); Red Blood Count 3.83 M/mm3 (4.6-6.2); White Blood Count 9.1 K/mm3 (4.4-11.0)
[2024-11-21 08:02] LABS: Anion Gap 3 (5-15); BUN 16 mg/dL (7-18); BUN/Creat Ratio 17.6 RATIO (10-20); Calcium,Total 8.4 mg/dL (8.5-10.1); Chloride 113 mmol/L (98-107); Creatinine, Serum 0.91 mg/dL (0.70-1.30); EST Glomerular Filtration Rate 86 mL/min (>60); Est Glom Filt Rate - Afr Amer 104 mL/min (>60); Estimated Creatinine Clearance 59.52 ml/min; Glucose 94 mg/dL (74-106); Potassium 3.8 mmol/L (3.5-5.1); Sodium Level 141 mmol/L (136-145)
[2024-11-21 08:17] VITALS: BP 120/59; PULSE 57; RESP 17; TEMP 37.1; O2SAT 100
--- NOTE | 2024-11-21 10:09 | NURSING ---
This RN pulled the atenolol from the omnicell and split pill. This RN asked pt that if he had taken the dose yesterday since it is prescribed every other day. This RN did not administer medication and disposed of the split medication in the med room.
--- NOTE | 2024-11-21 10:16 | CASEMGMT ---
SANDRA JIANG NOTE: Discharge order is in. Pt discharging home w/F/C. SANDRA CM to room. Pt resting in bed, @ bedside. They feel comfortable going home w/ F/C and deny having any concerns w/managing this. Pt stated, Been there, done that. They voice no other discharge concerns/needs. Yosvany BSN RN CM
--- NOTE | 2024-11-21 10:18 | PCM.DC ---
Discharge Instructions Diet Discharge Diet: No restrictions DC O2, CPAP, BIPAP needs Home O2 Discharge instructions: No Dressing / Incision Discharge Activity: Return to Normal Activity and May Not Drive (while taking narcotic pain medications.) Lifting Restrictions: no lifting, no heavy activity Dressing / Incision Call your doctor if you observe: Fever of 101 or Higher Suture Line Care: Avoid Pulling/Pushing and Avoid Pinching/Bending Catheter: Li to leg bag and Li to large bag Drain: [place] Follow Up Care Please Follow Up With: Flash Becker MD When: Call [phone] for an appointment Test Results: Test results from this visit will be discussed in further detail at your follow-up appointment, if applicable. Discharge Plan Admission Admit Date/Time: 11/19/24 23:27 Primary Reason for Your Visit: bleeding Attending Provider: Flash Becker Primary Care Provider: Melissa العراقي Discharge Orders/Prescriptions Prescriptions: Continued atenolol 25 mg tablet 12.5 mg PO Q OTHER DAY Rx Instructions: every other day atorvastatin 20 MG tablet 20 mg PO QHS cholecalciferol (vitamin D3) 2,000 UNIT capsule 2,000 unit PO DAILY Held aspirin [Adult Low Dose Aspirin] 81 mg tablet,delayed release (DR/EC) 81 mg PO QDAY Qty: 30 3RF Hold Instructions: Resume on 11/28/24. Referrals / Follow Up: Melissa العراقي DO [Primary Care Provider] - Disposition Disposition (needs filled in before D/C Order can be placed): Home, Self Care
[2024-11-21 12:15] VITALS: BP 114/59; PULSE 55; RESP 16; TEMP 37.1; O2SAT 100
== END 2024-11-21 10:18 | disposition home or self-care (01) ==
LOC: ED 23:15 → PCU 11-20 00:01
PROVIDERS: Admitting Provider Urology; Emergency Provider Emergency Medicine; PCP Internal Medicine; Visit Provider Urology
DX: N40.1 Benign prostatic hyperplasia with lower urinary tract symptoms (principal); R31.0 Gross hematuria; Z87.891 Personal history of nicotine dependence; I10 Essential (primary) hypertension; E78.5 Hyperlipidemia, unspecified; R55 Syncope and collapse; R00.0 Tachycardia, unspecified; I25.10 Atherosclerotic heart disease of native coronary artery without angina pectoris; E87.20 Acidosis, unspecified; R79.89 Other specified abnormal findings of blood chemistry; N13.8 Other obstructive and reflux uropathy; Z98.890 Other specified postprocedural states; Z79.899 Other long term (current) drug therapy; Z79.82 Long term (current) use of aspirin; T83.198A Other mechanical complication of other urinary devices and implants, initial encounter; Y73.1 Therapeutic (nonsurgical) and rehabilitative gastroenterology and urology devices associated with adverse incidents
CPT/HCPCS: 52601; 00914; 36415; 51702; 80048; 85025; 96360; 96361; 99221; 99285; A4216; G0378; J2405

== ENCOUNTER → 2025-01-14 | Outpatient (CLI) | payer MEDICARE, SELFPAY ==
--- NOTE | 2025-01-14 09:55 | CDU_ITS ---
Reason For Study Reason For Study: Atherosclerosis Rt. Velocities/BP Lt. Velocities/BP Prox CCA 86.1/14.6 cm/sec. Prox CCA 103.5/23.7 cm/sec. Mid CCA 92.7/20.1 cm/sec. Mid CCA 91.2/21.2 cm/sec. Dist CCA 91.2/18.8 cm/sec. Dist CCA 81.4/24.9 cm/sec. Prox ICA 71.6/18.8 cm/sec. Prox ICA 66.7/15.1 cm/sec. Mid ICA 97.4/28.6 cm/sec. Mid ICA 81.4/26.2 cm/sec. Dist ICA 88.5/25.4 cm/sec. Dist ICA 67.9/20.0 cm/sec. Rt. ICA/CCA = 1.1. Lt. ICA/CCA = 0.9. Prox ECA 102.3/9.0 cm/sec. Prox ECA 88.8/17.6 cm/sec. Rt. Vert. 33.4/6.4 cm/sec. Lt. Vert. 43.3/10.2 cm/sec. Right Extracranial There is intimal thickening but no significant atherosclerotic plaque noted in the right common carotid artery. There is heterogeneous, irregular atherosclerotic plaque noted in the right internal carotid artery. There is intimal thickening but no significant atherosclerotic plaque noted in the right external carotid artery. Antegrade flow is noted in the right vertebral artery. Left Extracranial There is intimal thickening but no significant atherosclerotic plaque noted in the left common carotid artery. There is heterogeneous, irregular atherosclerotic plaque noted in the left internal carotid artery. There is intimal thickening but no significant atherosclerotic plaque noted in the left external carotid artery. Antegrade flow is noted in the left vertebral artery. Procedure Carotid Duplex 80882. This is a Carotid Duplex examination using B-mode, color flow and specral Doppler. Exam performed in department. VL/Carotid Duplex Ultrasound Interpretation Summary Mild (<50%) stenosis right extracranial internal carotid. Mild (<50%) stenosis left extracranial internal carotid. Flow within the vertebral arteries is antegrade bilaterally. Ordering Physician: Melissa العراقي Referring Physician: Melissa العراقي Performed By: Shayna Moise RVT and Student
== END | disposition home or self-care (01) ==
LOC: CVS 09:55
PROVIDERS: PCP Internal Medicine; Referring Provider Internal Medicine; Visit Provider Internal Medicine
DX: I65.23 Occlusion and stenosis of bilateral carotid arteries (principal)
CPT/HCPCS: 93880

== ENCOUNTER → 2025-03-02 | Outpatient (CLI) | payer MEDICARE, SELFPAY ==
[2025-03-02 14:55] LABS: PSA,Total - Annual Screen 1.68 ng/mL (0.02-4.00)
== END | disposition home or self-care (01) ==
LOC: LAB 11:31
PROVIDERS: PCP Internal Medicine; Referring Provider Nurse Practitioner; Visit Provider Nurse Practitioner
DX: Z12.5 Encounter for screening for malignant neoplasm of prostate (principal)
CPT/HCPCS: 36415; 84153; G0103

== ENCOUNTER → 2025-03-04 | Outpatient (CLI) | payer MEDICARE, SELFPAY ==
--- NOTE | 2025-03-04 13:51 | ECHOD_ITS ---
Reason For Study Reason For Study: CAD/ASHD Procedure This was a 2D Doppler, Color Flow transthoracic echocardiogram. Exam performed in department. Left Ventricle Normal LV size. Left ventricular systolic function is normal. The left ventricular ejection fraction is 60 %. No regional wall motion abnormalities noted. Right Ventricle Normal RV size. Normal systolic function. Atria Normal left atrium. Normal right atrium. Tricuspid Valve Normal tricuspid valve. Mild (1+) tricuspid valve insufficiency. Pulmonary artery systolic pressure is 28 mmHg. Aortic Valve Trisinus/trileaflet aortic valve. Pulmonic Valve Normal pulmonic valve. Great Vessels Normal aortic root. The pulmonary artery is normal size. Inferior vena cava collapse with respiration. Pericardium/Pleural No pericardial effusion. MMode/2D Measurements & Calculations LVIDd: 4.3 cm IVSd: 0.89 cm Ao root diam: 2.9 cm LVIDs: 2.9 cm LVPWd: 0.83 cm RVDd: 3.5 cm FS: 31.4 % LAV(MOD-bp): 34.0 ml LVAd ap4: 27.0 cm2 SV(MOD-sp4): 44.8 ml LAV(MOD-bp) Indexed: 19.4 ml/m2 LVLd ap4: 8.2 cm SI(MOD-sp4): 25.5 ml/m2 LAV(MOD-sp2): 34.7 ml EDV(MOD-sp4): 73.8 ml LAV(MOD-sp4): 30.7 ml EDV(sp4-el): 75.2 ml LVAs ap4: 15.2 cm2 LVLs ap4: 6.7 cm ESV(MOD-sp4): 29.0 ml ESV(sp4-el): 29.1 ml EF(MOD-sp4): 60.7 % EF(sp4-el): 61.4 % SV(sp4-el): 46.2 ml LA dimension(2D): 2.9 cm LA A4 area: 13.7 cm2 RA A4 area: 12.7 cm2 TAPSE: 2.3 cm Time Measurements MV dec time: 0.19 sec Doppler Measurements & Calculations MV E max gary: 83.2 cm/sec Lat Peak E' Gary: 11.7 cm/sec Med Peak E' Gary: 11.7 cm/sec MV A max gary: 67.5 cm/sec E/E' lat: 7.1 E/E' med: 7.1 MV E/A: 1.2 Ao V2 max: 153.0 cm/sec LV V1 max: 102.3 cm/sec PA V2 max: 83.6 cm/sec Ao max P.4 mmHg LV V1 max P.2 mmHg TR max gary: 248.0 cm/sec TR max P.6 mmHg ECHO/Echo Complete Interpretation Summary Normal LV size. Left ventricular systolic function is normal. The left ventricular ejection fraction is 60 %. Structurally normal valves. Ordering Physician: Denys Flores Referring Physician: BRITT HOPE Performed By: Bess Lo RDCS
== END | disposition home or self-care (01) ==
LOC: CVS 13:49
PROVIDERS: PCP Internal Medicine; Referring Provider Internal Medicine Cardiovascular Disease; Visit Provider Internal Medicine Cardiovascular Disease
DX: I25.10 Atherosclerotic heart disease of native coronary artery without angina pectoris (principal)
CPT/HCPCS: 93306

== ENCOUNTER 2025-03-15 11:02 | Emergency (ER) | payer MEDICARE, SELFPAY ==
[2025-03-15 11:04] VITALS: BP 136/75; PULSE 93; RESP 16; TEMP 36.8; O2SAT 99; BMI 21.7
--- NOTE | 2025-03-15 11:19 | EDS_ITS ---
HPI History of Present Illness Chief Complaint: Complaint Informant: patient and spouse/S.O. Narrative Narrative: 79-year-old male states he has been having some urine issues for the last couple weeks, saw urology Dr. Becker, and has been diagnosed with overactive bladder and put on some medication, he states he did not have prostate issues. For this past week or so, he has been gradually having dribbling when he does go, urgency, and not going very much and then as a result having to go more frequently. Last couple days and nights were much worse, he was having to get up multiple times throughout the night, urinating only very little having difficult time getting any urine out, burning from the tip of the penis when he does urinate, and as a result getting very poor sleep. Therefore he has been feeling fatigued, but he has no other systemic symptoms or fever/chills. Denies any hematuria or clots. When he is not urinating he does not have pain. [facility] Medical History History of echocardiogram History of stress test Former smoker Wears glasses Non-smoker Hypertension Cardiology follow-up encounter Abnormal Heart Score CT Atherosclerosis of coronary artery without angina pectoris Tobacco use Hemorrhoid Syncope (01/27/20) BPH (benign prostatic hyperplasia) Erectile dysfunction Diverticulosis Hearing loss Osteoarthritis Bradycardia Hyperlipidemia Essential (primary) hypertension Abnormal nuclear stress test Left bundle branch block (LBBB) Home Medications ?Medication ?Instructions ?Recorded ?Last Taken ?Type aspirin 81 mg tablet,delayed 81 mg PO QDAY heart healt h #30 tabs 03/24/20 03/14/25 Rx release (Adult Low Dose Aspirin) cholecalciferol (vitamin D3) 50 2,000 unit PO DAILY [place] pplement 08/05/20 03/14/25 History mcg (2,000 unit) capsule atenolol 25 mg tablet 12.5 mg PO Q OTHER DAY heart 10/19/21 03/14/25 History atorvastatin 40 mg tablet 40 mg PO DAILY 03/15/2503/05 History tamsulosin 0.4 mg capsule 0.4 mg PO DAILY #30 caps 09/29 Unknown Rx Allergy/AdvReac Type Severity Reaction Status Date / Time No Known Allergies Allergy Verified 03/15/25 11:06 Family History Mother CAD (coronary artery disease) Heart disease Hypertension Hyperlipidemia Sister CAD (coronary artery disease) CABG, Carotid Disease Father ETOH abuse Sister Breast cancer Surgical History History of cardiac catheterization History of colonoscopy History of left heart catheterization (04/01/20) History of cataract surgery History of transurethral resection of prostate Social History Smoking Status: Former smoker how long ago did patient quit smokin years ago alcohol intake: never substance use type: does not use caffeine: No ROS ROS ED Constitutional Constitutional ED: Denies chills or fever(s) Eyes Eyes: Denies change in vision or diplopia ENT ENT ED: Denies rhinorrhea or sore throat Cardiovascular Cardiovascular: Denies chest pain or palpitations Respiratory/Chest Respiratory/Chest: Denies cough or dyspnea Gastrointestinal Gastrointestinal: Denies abdominal pain, diarrhea, nausea or vomiting Genitourinary Genitourinary ED: Reports as per HPI, difficulty urinating, dribbling, dysuria, urinary frequency and urinary urgency; Denies drinking/eating less, hematuria or scrotal pain Musculoskeletal Musculoskeletal: Denies back pain or neck pain Integumentary Denies abscess or rash Neurologic Neurologic: Denies headache(s), paresthesias or weakness Psychiatric Psychiatric: Denies anxiety or suicidal thoughts EXAM Physical Exam Const Vital Signs: 03/15/25 11:04 03/15/25 13:04 Temperature 98.2 F 98 F Temperature Source Oral Pulse Rate 93 81 Respiratory Rate 16 18 Blood Pressure 136/75 H 125/78 H Blood Pressure Mean 95 93 Pulse Ox 99 98 Positive well nourished and well developed General Appearance ED: well developed and NAD HEENT Reports moist mucous membranes normocephalic and atraumatic Eyes PERRL and EOMs intact bilaterally Neck full ROM and supple Resp normal respiratory effort and clear to auscultation bilaterally Cardio regular rate, regular rhythm and no murmurs GI non-tender and non-distended Auscultation: normoactive bowel sounds Palpation: soft Back/Spine no CVA tenderness General Back: other FROM Extremity normal to inspection General Extremety ED: Negative for edema, pulses abnormal or tenderness General Extremity: Negative for edema or pulses abnormal Neuro oriented x3, CN's II-XII intact bilaterally, no sensory deficits noted and gait normal Sensorium / Orientation: awake and alert Motor Exam: strength 5/5 throughout Psych mental status grossly normal Skin no rashes or lesions noted and no wounds MDM MDM MDM Narrative Medical decision making narrative: Patient urinated some we sent to the lab and it is negative for infection, and then I had nurses do a bedside ultrasound postvoid residual which was over 400 cc. His renal function and blood counts are normal. Discussed with Dr. Becker, he advises we have the patient stop his Gemtesa and agrees with placing a Li here to give the patient relief now, and advises that we put him on Flomax and follow-up in the office after the weekend. Patient comfortable with that plan nursing to place a Li catheter with lidocaine jelly pretreatment. I suspect the pain the patient was having is spasm of the sphincter muscle. Nursing was unable to place Li catheter. She felt like the catheter was hitting an obstruction just prior to the bladder which is consistent with where we think the issue is, but even with having the patient attempt to urinate while placing the catheter and attempting a coud?, catheter was unable to be placed and patient was extremely uncomfortable so we decided to abort and allow him to go home without the catheter at this time since he is able to urinate some, with the above plan to discontinue his Gemtesa and start Flomax and to follow-up with his urologist as an outpatient. Lab Data Attestation: I reviewed the patient's lab results. Labs: Laboratory Results - last 24 hr 03/15/25 03/15/25 11:30 11:35 WBC 4.3 L RBC 4.75 Hgb 14.0 Hct 41.1 MCV 86.5 MCH 29.5 MCHC 34.1 RDW Std Deviation 39.8 RDW Coeff of Treva 12.6 Plt Count 205 MPV 10.5 Immature Gran % (Auto) 0.500 Neut % (Auto) 69.4 Lymph % (Auto) 21.0 [place] % (Auto) 7.4 Eos % (Auto) 1.2 Baso % (Auto) 0.5 Absolute Neuts (auto) 3.0 Absolute Lymphs (auto) 0.91 Nucleated RBC % 0 Sodium 140 Potassium 3.9 Chloride 104 Carbon Dioxide 25.5 Anion Gap 11 BUN 13 Creatinine 0.98 Estim Creat Clear Calc 55.12 Est GFR (MDRD) Non-Af 79 BUN/Creatinine Ratio 13.3 Glucose 135 H Calcium 9.7 Urine Color Yellow Urine Clarity Clear Urine pH 6.5 Ur Specific [place] 1.015 Urine Protein 15 H Urine Glucose (UA) 250 H Urine Ketones Negative Urine Occult Blood 10 H Urine Nitrite Negative Urine Bilirubin Negative Urine Urobilinogen Normal Ur Leukocyte Esterase Negative Urine RBC 0 SEEN Urine WBC 0-5 SEEN Ur Squamous Epith Cells 0 SEEN Urine Bacteria 0 SEEN Urine Mucus 0 SEEN Management Discussion w/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 healthcare 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) Discharge Plan Triage Chief Complaint: Complaint ED Provider: Lobo Cage Dx/Rx/DC Orders Clinical Impression: Acute urinary retention Instructions: ED Li Catheter, Care, ED Urinary Retention, Male Prescriptions: New tamsulosin 0.4 mg capsule 0.4 mg PO DAILY Qty: 30 0RF Continued aspirin [Adult Low Dose Aspirin] 81 mg tablet,delayed release (DR/EC) 81 mg PO QDAY Qty: 30 3RF atenolol 25 mg tablet 12.5 mg PO Q OTHER DAY Rx Instructions: every other day cholecalciferol (vitamin D3) 2,000 UNIT capsule 2,000 unit PO DAILY atorvastatin 40 mg tablet 40 mg PO DAILY Discontinued Gemtesa 75 mg tablet 75 mg PO DAILY Primary Care Provider: Melissa العراقي Referrals: Flash Becker MD [Med Staff - Active Staff] - (this next week, call sunday for appt later in the week) Print Language: Prydeinig Disposition Disposition: Home, Self Care Discharge Date/Time: 03/15/25 13:26
[2025-03-15 11:42] LABS: Bacteria 0 SEEN /hpf (None Seen); Mucous, Urine 0 SEEN /hpf (<or=2+); Red Blood Cells-Urine 0 SEEN /hpf (0-5); Squamous Epithelial Cells - UA 0 SEEN /hpf (0-5)
[2025-03-15 11:45] LABS: Color, Urine Yellow (Yellow); Glucose, Dipstick 250 mg/dl (Normal); Ketone-Dipstick Negative (Negative); Leukocyte Esterase-Dipstick Negative /ul (Negative); Nitrite-Dipstick Negative (Negative); Occult Blood-Urine 10 /ul (Negative); Protein-Dipstick 15 mg/dl (Negative); Specific Gravity, Urine 1.015 (1.002-1.030); Urine Bilirubin Dipstick Negative (Negative); Urine Clarity Clear (Clear); Urine Urobilinogen Normal (Normal); Urine pH 6.5 (5.0 - 8.0)
[2025-03-15 11:46] LABS: Absolute Lymphocyte Count 0.91 X10^3/uL (0.83-4.51); Basophil# 0.02 X10^3/uL; Basophil% 0.5 % (0-1); Eosinophil# 0.05 X10^3/uL; Eosinophils% 1.2 % (0-5); Hematocrit 41.1 % (40-54); Lymphocyte # 0.91 X10^3/ul (0.83-4.51); Mean Corp Hgb Conc 34.1 g/dL (32-36); Mean Corpuscular Hgb 29.5 pg (27.0-32.0); Mean Corpuscular Volume 86.5 fL (80-94); Mean Platelet Vol. 10.5 fl (6.2-12.0); Monocyte# 0.32 X10^3/uL; Monocyte% 7.4 % (0-10); NRBC Flagged by Analyzer 0 % (0-5); Neutrophil # 3.01 X10^3/uL (2.7-7.7); Neutrophil % 69.4 % (47-70); Platelet Count 205 K/mm3 (150-450); RBC Distribution Width CV 12.6 % (11.6-14.6); RBC Distribution Width SD 39.8 fl (35.1-43.9); Red Blood Count 4.75 M/mm3 (4.6-6.2); White Blood Count 4.3 K/mm3 (4.4-11.0)
[2025-03-15 11:51] LABS: White Blood Cells 0-5 SEEN /hpf (0-5)
[2025-03-15 12:05] LABS: Anion Gap 11 (5-15); BUN 13 mg/dL (4-19); BUN/Creat Ratio 13.3 RATIO (10-20); Calcium,Total 9.7 mg/dL (7.6-11.0); Carbon Dioxide 25.5 mmol/L (21.0-32.0); Chloride 104 mmol/L (98-108); Creatinine, Serum 0.98 mg/dL (0.70-1.20); EST Glomerular Filtration Rate 79 (>60); Estimated Creatinine Clearance 55.12 ml/min (50-250); Glucose 135 mg/dL (70-99); Potassium 3.9 mmol/L (3.3-5.1); Sodium Level 140 mmol/L (133-145)
[2025-03-15] MEDS: Lidocaine Jelly 2% 20 ML Syringe (URO-JET) 1 APPLIC TOPICAL (12:19)
[2025-03-15 13:04] VITALS: BP 125/78; PULSE 81; RESP 18; TEMP 36.6; O2SAT 98
== END 2025-03-15 13:26 | disposition home or self-care (01) ==
PROVIDERS: Emergency Provider Emergency Medicine; PCP Internal Medicine; Visit Provider Emergency Medicine
DX: R33.9 Retention of urine, unspecified (principal); I25.10 Atherosclerotic heart disease of native coronary artery without angina pectoris; E78.5 Hyperlipidemia, unspecified; N32.81 Overactive bladder; I10 Essential (primary) hypertension; Z87.891 Personal history of nicotine dependence; Z79.85 Long-term (current) use of injectable non-insulin antidiabetic drugs; Z79.899 Other long term (current) drug therapy
CPT/HCPCS: 80048; 81001; 85025; 99282

== ENCOUNTER 2025-04-15 09:24 | Observation (INO) | payer MEDICARE, SELFPAY ==
--- NOTE | 2025-04-10 11:51 | EKG12_ITS ---
Test Reason : PRE OP Blood Pressure : */* mmHG Vent. Rate : 50 BPM Atrial Rate : 50 BPM P-R Int : 146 ms QRS Dur : 94 ms QT Int : 440 ms P-R-T Axes : 65 66 57 degrees QTcB Int : 401 ms Sinus bradycardia Otherwise normal ECG Confirmed by ANN TYSON, JORGE ([id number]), newspaper editor managing AMERICA PEREZ ([id number]) on 04/13/2025 6:49:23 AM Referred By: Flash Becker Confirmed By: JORGE JUAREZ MD
--- NOTE | 2025-04-10 13:43 | PAT.ANE_ITS ---
Pre-Assessment Diagnosis/Proposed Procedure Planned Operative Procedure(s): Lap Robotic Simple Prostatectomy Anesthesia History Anesthesia History - correctional supervising cook: Anesthesia History - correctional supervising cook Hx Hospitalization No 04/09/25 08:42 Any Problems With Anesthesia No 04/09/25 08:42 Cholinesterase deficiency No 04/09/25 08:42 You/Your Family Experience No 04/09/25 08:42 fever (hyperthermia) with Relationship Recent Exposure to Contagious No 11/19/24 11:39 Disease Does patient have nerve No 04/09/25 08:42 stimulator Patient instructed to have device shut off --Does patient have Pacemaker or ICD? When Was Last Pacemaker Check QUESTION #4 FULL TEXT: You/Your Family Experience fever (hyperthermia) with Anesthesia Last Oral Intake Last Oral intake: Last Oral Intake NPO since Meds taken in AM with sips of water? 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 - correctional supervising cook: PONV - correctional supervising cook Female No 04/09/25 08:42 HX of Motion Sickness No 04/09/25 08:42 HX of N/V After Surgery No 04/09/25 08:42 Non-Smoker Yes 04/09/25 08:42 Duration of Surgery greater Yes 04/09/25 08:42 than 60 minutes Number of Risk Factors 2 04/09/25 08:42 PONV Score Moderate Risk 04/09/25 08:42 Height & Weight Height & Weight: Anesthesia: Height & Weight Height 5 ft 7 in 03/15/25 11:04 Respiratory Assessment Respiratory Assessment - correctional supervising cook: Respiratory Tract Infection Hx - correctional supervising cook Hx Respiratory Tract Infection No 04/09/25 08:42 STOP Sleep Apnea STOP Sleep Apnea - correctional supervising cook: STOP Sleep Apnea - correctional supervising cook Hx Hypertension No 04/09/25 08:42 Hx Sleep Apnea No 04/09/25 08:42 CPAP No 04/09/25 08:42 BIPAP No 04/09/25 08:42 Do you snore loudly (louder No 04/09/25 08:42 than talking or can be heard Do you often feel tired/ No 04/09/25 08:42 fatigued/ sleepy during daytime? Has anyone observed you stop No 04/09/25 08:42 breathing during sleep? STOP Results Negative 04/09/25 08:42 QUESTION #5 FULL TEXT : Do you snore loudly (louder than talking or can be heard through closed doors)? 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 Specify any problems Hx of Preganancy in last 3 N/A 04/09/25 08:42 Months Nurse Filling Out Transfusion NBUCHER 04/09/25 08:42 & Questions: Date: 04/09/25 04/09/25 08:42 Time: 08:43 04/09/25 08:42 Patient unable to answer at this time (ie. confused, unrespo /Reproduction History /Reproductive History - correctional supervising cook: /Reproductive Hx- correctional supervising cook Hx Now Gestational Age (in weeks): EDC: Hx Hx Para Hx Section SAB No 04/09/25 08:42 PFSH Medical History (Updated 04/09/25 @ 08:44 by Nica Loredo) History of echocardiogram History of stress test Former smoker Wears glasses Non-smoker Hypertension Cardiology follow-up encounter Abnormal Heart Score CT Atherosclerosis of coronary artery without angina pectoris Tobacco use Hemorrhoid Syncope (01/27/20) BPH (benign prostatic hyperplasia) Erectile dysfunction Diverticulosis Hearing loss Osteoarthritis Bradycardia Hyperlipidemia Essential (primary) hypertension Abnormal nuclear stress test Left bundle branch block (LBBB) Home Medications ?Medication ?Instructions ?Recorded ?Last Taken ?Type aspirin 81 mg tablet,delayed 81 mg PO QDAY heart [facility] #30 tabs 03/24/20 03/14/25 Rx release (Adult Low Dose Aspirin) cholecalciferol (vitamin D3) 50 2,000 unit PO DAILY [place] pplement 08/05/20 03/14/25 History mcg (2,000 unit) capsule atenolol 25 mg tablet 12.5 mg PO Q OTHER DAY heart 10/19/21 03/14/25 History atorvastatin 40 mg tablet 40 mg PO DAILY 03/15/2503/05 History tamsulosin 0.4 mg capsule 0.4 mg PO DAILY #30 caps 09/29 Unknown Rx Allergy/AdvReac Type Severity Reaction Status Date / Time No Known Allergies Allergy Verified 04/09/25 08:40 Family History Mother CAD (coronary artery disease) Heart disease Hypertension Hyperlipidemia Sister CAD (coronary artery disease) CABG, Carotid Disease Father ETOH abuse Sister Breast cancer Surgical History (Updated 04/09/25 @ 08:44 by Nica Loredo) History of transurethral resection of bladder tumor (TURBT) (~11/2024) History of cardiac catheterization History of colonoscopy History of left heart catheterization (04/01/20) History of cataract surgery History of transurethral resection of prostate Social History Smoking Status: Former smoker how long ago did patient quit smokin years ago alcohol intake: never substance use type: does not use caffeine: No Audit: Pertinent Findings Pertinent Findings EKG Perinent findings: 11/06/2024. Normal sinus rhythm 78 bpm. Possible left atrial lodgment. ST abnormality, possible digitalis effect. Echo (EF%) pertinent findings: 03/04/2025. Normal size normal function EF 60%. Structurally normal valves. Consult pertinent findings: Cardiology 02/10/2025. History of coronary artery disease. 03/24/2020 catheterization demonstrated nonobstructive coronary artery disease. Moderate disease LAD and circumflex. EF 60%. Stable at this time. Left bundle branch block. Chronic. Stable. Hypertension. Chronic. Well- controlled. Recommendation Anesthesia Recommendation Anesthesia recommendation: OPTIMIZED for anesthesia
[2025-04-15] VITALS (16 sets, daily range): BP systolic 102–145; BP diastolic 46–100; PULSE 48–89; RESP 15–18; TEMP 36.4–37; O2SAT 93–100; BMI 21.0
[2025-04-15] MEDS: Lactated Ringers 1,000 ML 15 ML IV ×2 (06:51→08:55)
--- NOTE | 2025-04-15 06:51 | PCM.PRE.AN2 ---
ASA Classification* ASA Classification ASA Classification: 2 Assessment & Plan Anesthesia* Anesthesia Assessment Anesthesia Assessment: Discussed sedation and/or anesthesia options, risks, benefits, and alternatives with patient/parents/legal guardian/POA. Questions invited. The patient/parents/legal guardian/POA seems to understand and agrees to proceed with anesthesia plan. Reviewed the physical assessment, medical history, allergy history and patient home medications list prior to surgery/procedure/anesthetic and documented any changes. Performed airway and anesthesia risk assessments. Anesthesia Type Anesthesia Type: General (vasovagal. consider bolus pre op) Anesthesia Focused Assessment* Temperature: 98.6 F Pulse Rate: 56 Blood Pressure: 122/61 Respiratory Rate: 18 Pulse Ox: 100 Airway Assessment Mouth opens: >3 cm Mallampati Score: II Labs Anesthesia Preop lab: CBC WBC 4.3 K/mm3 (4.4-11.0) L 03/15/25 11:35 03/15/25 RBC 4.75 M/mm3 (4.6-6.2) 03/15/25 11:35 03/15/25 Hgb 14.0 g/dL (13.0-16.5) 03/15/25 11:35 03/15/25 Hct 41.1 % (40-54) 03/15/25 11:35 03/15/25 Plt Count 205 K/mm3 (150-450) 03/15/25 11:35 03/15/25 CHEMISTRY Potassium 3.9 mmol/L (3.3-5.1) 03/15/25 11:35 03/15/25 Sodium 140 mmol/L (133-145) 03/15/25 11:35 03/15/25 BUN 13 mg/dL (4-19) 03/15/25 11:35 03/15/25 Creatinine 0.98 mg/dL (0.70-1.20) 03/15/25 11:35 03/15/25 Glucose 135 mg/dL (70-99) H 03/15/25 11:35 03/15/25 TSH 3.34 uIU/mL (0.358-3.74) 08/18/19 10:55 08/18/19 COAG Pre-Assessment Diagnosis/Proposed Procedure Planned Operative Procedure(s): Lap Robotic Simple Prostatectomy Anesthesia History Anesthesia History - agile scrum master: Anesthesia History - agile scrum master Hx Hospitalization No 04/09/25 08:42 Any Problems With Anesthesia No 04/09/25 08:42 Cholinesterase deficiency No 04/09/25 08:42 You/Your Family Experience No 04/09/25 08:42 fever (hyperthermia) with Relationship Recent Exposure to Contagious No 04/15/25 06:34 Disease Does patient have nerve No 04/09/25 08:42 stimulator Patient instructed to have device shut off --Does patient have Pacemaker or ICD? When Was Last Pacemaker Check QUESTION #4 FULL TEXT: You/Your Family Experience fever (hyperthermia) with Anesthesia Last Oral Intake Last Oral intake: Last Oral Intake NPO since Meds taken in AM with sips of water? 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 - agile scrum master: PONV - agile scrum master Female No 04/09/25 08:42 HX of Motion Sickness No 04/09/25 08:42 HX of N/V After Surgery No 04/09/25 08:42 Non-Smoker Yes 04/09/25 08:42 Duration of Surgery greater Yes 04/09/25 08:42 than 60 minutes Number of Risk Factors 2 04/09/25 08:42 PONV Score Moderate Risk 04/09/25 08:42 Height & Weight Height & Weight: Anesthesia: Height & Weight Height 5 ft 7 in 04/15/25 06:34 Weight: 61 kg 04/15/25 06:34 Body Mass Index (BMI) 21.0 04/15/25 06:34 Respiratory Assessment Respiratory Assessment - agile scrum master: Respiratory Tract Infection Hx - agile scrum master Hx Respiratory Tract Infection No 04/09/25 08:42 STOP Sleep Apnea STOP Sleep Apnea - agile scrum master: STOP Sleep Apnea - agile scrum master Hx Hypertension No 04/09/25 08:42 Hx Sleep Apnea No 04/09/25 08:42 CPAP No 04/09/25 08:42 BIPAP No 04/09/25 08:42 Do you snore loudly (louder No 04/09/25 08:42 than talking or can be heard Do you often feel tired/ No 04/09/25 08:42 fatigued/ sleepy during daytime? Has anyone observed you stop No 04/09/25 08:42 breathing during sleep? STOP Results Negative 04/09/25 08:42 QUESTION #5 FULL TEXT : Do you snore loudly (louder than talking or can be heard through closed doors)? 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 Specify any problems Hx of Preganancy in last 3 N/A 04/09/25 08:42 Months Nurse Filling Out Transfusion NBUCHER 04/09/25 08:42 & Questions: Date: 04/09/25 04/09/25 08:42 Time: 08:43 04/09/25 08:42 Patient unable to answer at this time (ie. confused, unrespo /Reproduction History /Reproductive History - agile scrum master: /Reproductive Hx- agile scrum master Hx Now Gestational Age (in weeks): EDC: Hx Hx Para Hx Section SAB No 04/09/25 08:42 Active Medications Active Medications: Current Medications Generic Name Dose Route Start Last Admin Trade Name Freq PRN Reason Stop Dose Admin Cefazolin Sodium 2 gm/ Sodium 110 mls @ 150 mls/hr 04/15/25 07:30 Chloride IV 04/15/25 08:13 INTRAOP ONE Lactated Ringer's 1,000 mls @ 15 mls/hr 04/15/25 06:30 IV .Q48H JOSSIE PFSH Medical History History of echocardiogram History of stress test Former smoker Wears glasses Non-smoker Hypertension Cardiology follow-up encounter Abnormal Heart Score CT Atherosclerosis of coronary artery without angina pectoris Tobacco use Hemorrhoid Syncope (01/27/20) BPH (benign prostatic hyperplasia) Erectile dysfunction Diverticulosis Hearing loss Osteoarthritis Bradycardia Hyperlipidemia Essential (primary) hypertension Abnormal nuclear stress test Left bundle branch block (LBBB) Home Medications ?Medication ?Instructions ?Recorded ?Last Taken ?Type aspirin 81 mg tablet,delayed 81 mg PO QDAY heart [employer] #30 tabs 03/24/20 04/08/25 Rx release (Adult Low Dose Aspirin) cholecalciferol (vitamin D3) 50 2,000 unit PO DAILY supplement 08/05/20 04/14/25 History mcg (2,000 unit) capsule atenolol 25 mg tablet 12.5 mg PO Q OTHER DAY heart 10/19/21 04/14/25 History atorvastatin 40 mg tablet 40 mg PO DAILY 03/15/25 04/14/25 History tamsulosin 0.4 mg capsule 0.4 mg PO DAILY #30 caps 03/15/25 04/14/25 Rx Allergy/AdvReac Type Severity Reaction Status Date / Time No Known Allergies Allergy Verified 04/15/25 06:32 Family History Mother CAD (coronary artery disease) Heart disease Hypertension Hyperlipidemia Sister CAD (coronary artery disease) CABG, Carotid Disease Father ETOH abuse Sister Breast cancer Surgical History History of transurethral resection of bladder tumor (TURBT) (~11/2024) History of cardiac catheterization History of colonoscopy History of left heart catheterization (04/01/20) History of cataract surgery History of transurethral resection of prostate Social History Smoking Status: Former smoker how long ago did patient quit smokin years ago alcohol intake: never substance use type: does not use caffeine: No Review of Systems (Anesthesia) ROS Narrative System reviewed and no additional complaints, except as documented.
[2025-04-15] MEDS: Cefazolin 2 GM in 0.9% Normal Saline (100mL Bag) 100 ML IV (07:30)
--- NOTE | 2025-04-15 07:30 | PROST_PTH ---
PATIENT: RUFINO VALADEZ LOC: [facility] U#:[id number] AGE/SX: 79/M ROOM: [facility] RE04/15/[address]: Dr. Flash Becker MD : 1945 BED: 1 DIS: 04/16/2025 SPEC #: [id number] RECD: 04/15/25 10:04 STATUS: HARJIT DU #: [id number] RODRIGO: 04/15/25 07:[address]: Flash Becker DEPT: SURGICAL PATHOLOGY RECD BY: Karthikeyan Manzo ENTERED: 04/15/25 10:37 SP TYPE: PROSTATE OTHR DR: Dr. Melissa العراقي, DO Tissues: A - Prostate, NOS Procedures: Surgery Specimen Level HEADER OPERATION: Laparoscopic robotic simple prostatectomy PRE-OP DIAGNOSIS: Obstructive prostate TISSUE SUBMITTED: A- Prostate tissue MICROSCOPIC DIAGNOSIS A. Prostate, laparoscopic simple prostatectomy: * Fibromuscular and adenomatous hyperplasia MICROSCOPIC DESCRIPTION Slides are reviewed. GROSS DESCRIPTION A. Received in formalin labeled with the patient's name and date of . Designated as prostate tissue is a 6.4 g, 5.0 x 3.5 x 1.1 cm aggregate of morgan-pink to red, irregular, cauterized rubbery tissue. [facility] [place] 04/15/2025 CPT:93524
--- NOTE | 2025-04-15 07:35 | DCINST_ITS ---
Discharge Instructions Diet Discharge Diet: No restrictions, Light diet - advance as tolerated and Soft diet DC O2, CPAP, BIPAP needs Home O2 Discharge instructions: No Dressing / Incision Discharge Activity: May Not Drive and May Shower May shower in (days): 1 Dressing / Incision Call your doctor if you observe: Fever of 101 or Higher and Uncontrolled pain Suture Line Care: Avoid Pulling/Pushing and Avoid Pinching/Bending Catheter: Bello to leg bag and Bello to large bag Drain: [place] Follow Up Care Please Follow Up With: Flash Becker MD When: [phone], appt next to remove bello Test Results: Test results from this visit will be discussed in further detail at your follow- up appointment, if applicable. Discharge Plan Admission Primary Reason for Your Visit: simple prostatectomy Attending Provider: Flash Becker Primary Care Provider: Melissa العراقي Instructions Print Language: Luxembourgish Discharge Orders/Prescriptions Prescriptions: New cephalexin 500 mg capsule 500 mg PO BID Qty: 20 0RF oxycodone 5 mg tablet 5 mg PO Q6H PRN (Reason: pain) 7 Days Qty: 14 0RF Continued atenolol 25 mg tablet 12.5 mg PO Q OTHER DAY Rx Instructions: every other day cholecalciferol (vitamin D3) 2,000 UNIT capsule 2,000 unit PO DAILY atorvastatin 40 mg tablet 40 mg PO DAILY Held aspirin [Adult Low Dose Aspirin] 81 mg tablet,delayed release (DR/EC) 81 mg PO QDAY Qty: 30 3RF Hold Instructions: Resume on 04/29/25. Discontinued tamsulosin 0.4 mg capsule 0.4 mg PO DAILY Qty: 30 0RF Referrals / Follow Up: Melissa العراقي DO [Primary Care Provider] - Flash Becker MD [Med Staff - Active Staff] - Disposition Disposition (needs filled in before D/C Order can be placed): Home, Self Care
[2025-04-15] MEDS: Bupivacaine Mpf 0.5% 30 ML VIAL (08:25)
--- NOTE | 2025-04-15 09:28 | OP.PCM_ITS ---
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 Post-Operative Diagnosis: The same Surgery/Procedure Performed: Laparoscopic robotic assisted simple prostatectomy and reconstruction of bladder neck credit clerk: No Type of Anesthesia: General RN Documented Start/Stop Times: Operation Date: 04/15/25 07:30 Case Time Into Pre-Op 04/15/25 06:17 Out of Pre-Op 04/15/25 07:30 Procedure Start Time: 08:00 Procedure Stop Time: 09:29 Select all DRAINS/GRAFTS/IMPLANTS that apply: Drains Drain details: 20 [place] tip catheter Estimated Blood Loss: 25 cc Specimen collected: Yes Description of specimen(s) removed: Prostate tissue Description of surgery: Indication is a 79-year-old male who was found to have a bladder neck contracture and obstructive tissue in the prostate he has been having difficulty with urination has not been able to empty because of this obstruction so organ to proceed with a robotic simple prostatectomy and reconstruction of the bladder neck. Patient was taken back to the operating room after smooth induction of anesthesia he was placed in dorsolithotomy position the penis and testicles the lower abdomen were prepped and prepped and draped in usual sterile fashion, we then placed a Veress needle through the umbilicus insufflated the peritoneal cavity with CO2 gas placed camera trocar right upper trocar left arm trocar we dissected some adhesions to from the falciform ligament in the midline and then we used a 8 mm air seal port once again inside the abdomen patient was in slight Trendelenburg the bladder was distended I then opened up the bladder in the midline the urine was evacuated out with the suction using Venkata needles we then retracted the bladder laterally and each side left and right side were retracted once I got inside the bladder then identified the bladder neck contracture cut all the way around the bladder neck contracture to release this I then found an adenoma on the right side this was dissected free and released cutting Dilla pieces and removed with the kindergarten instructional assistant using the kindergarten instructional assistant port and then we then found adenoma on the left side the prostate adenoma was then released dissected free enucleated out and this adenoma was the left side and anterior after this to the had no more adenoma no more obstructive tissue urethra was intact sphincter was intact I then used a 3 oh V-Loc stitch to readvance the mucosa from the bladder down to the urethra circumferentially this was brought done in a continuous fashion starting around the 5 o'clock position running all the way around to advance the mucosa down to the urethra. Once this was done we did place Floseal to help control bleeding and then we placed a [place] tip catheter into the bladder insufflated the balloon with 10 cc of sterile water and then the bladder was closed in 2 layers with with 3 Vicryl. We then undocked the robot placing patient was placed flat we did close the umbilicus with a Howard Jacobson stitch and then we removed all the other ports subcuticular stitches were placed anesthetic was reversed and he will be kept overnight for observation with a catheter hopefully go home tomorrow and follow-up next week for catheter removal. Surgical Findings: Bladder neck contracture and BPH obstructive tissue Complications Complications: No Admit VTE Documentation VTE Present on Admission: No VTE Mechan Device Prophylaxis: SCD's VTE Pharm Prophylaxis ordered?: No
--- NOTE | 2025-04-15 09:50 | PCM.POST.ANE ---
Anesthesia: Postop Eval I Current Vital Signs Temperature: 97.5 F Pulse Rate: 58 Blood Pressure: 105/52 Respiratory Rate: 16 Pulse Ox: 93 Oxygen Delivery Method: Room Air Assessment Airway patent: Yes Spontaneous unlabored respirations: Yes Mental status: Awake and Calm nausea: No Vomiting: No Anesthesia Complication: No Fluid Hydration Crystalloid volume administer (ml): 1,400 Total IV fluid infused: 1,400 Progress Note Anesthesia document: Postop Eval 1 completed: Yes
[2025-04-15] MEDS: Ketorolac 15 MG/ML Vial IV ×4 (10:13→23:53)
--- NOTE | 2025-04-15 10:32 | POSTOPAN2_ITS ---
Anesthesia Postop Eval I Sum Postop Eval Completion status Anesthesia document: Postop Eval 1 completed: Yes Anesthesia Postop Eval I Summary Anesthesia Postop Eval I Summary: Anesthesia Postop Eval I: Assessment Summary Airway patent Yes 04/15/25 09:51 INFORMATION SECURITY DIRECTOR.[email or web address] Spontaneous unlabored Yes 04/15/25 09:51 INFORMATION SECURITY DIRECTOR.[email or web address] respirations Mental status Awake,Calm 04/15/25 09:51 INFORMATION SECURITY DIRECTOR.[email or web address] nausea No 04/15/25 09:51 INFORMATION SECURITY DIRECTOR.[email or web address] Vomiting No 04/15/25 09:51 INFORMATION SECURITY DIRECTOR.LMIL Anesthesia Postop Eval I: Fluid Summary Crystalloid volume administer 1,400 04/15/25 09:51 INFORMATION SECURITY DIRECTOR.LMIL (ml) Colloids volume administered ( ml) Blood Product volume administered (ml) Total IV fluid infused 1,400 04/15/25 09:51 INFORMATION SECURITY DIRECTOR.LMIL Anesthesia Postop Eval I: Summary Notes Anesthesia Complication No 04/15/25 09:51 INFORMATION SECURITY DIRECTOR.LMIL Anesthesia Complication Comment: Post-operative progress note Anesthesia: Postop Eval II Evaluation Mental status: Awake Pain Level: 2 nausea: No Vomiting: No
--- NOTE | 2025-04-15 10:32 | PCM.POSTANE2 ---
Anesthesia Postop Eval I Sum Postop Eval Completion status Anesthesia document: Postop Eval 1 completed: Yes Anesthesia Postop Eval I Summary Anesthesia Postop Eval I Summary: Anesthesia Postop Eval I: Assessment Summary Airway patent Yes 04/15/25 09:51 PAINTER [email or web address].[email or web address] Spontaneous unlabored Yes 04/15/25 09:51 PAINTER SPRING.LMIL respirations Mental status Awake,Calm 04/15/25 09:51 PAINTER SPRING.[email or web address] nausea No 04/15/25 09:51 PAINTER SPRING.LMIL Vomiting No 04/15/25 09:51 PAINTER SPRING.LMIL Anesthesia Postop Eval I: Fluid Summary Crystalloid volume administer 1,400 04/15/25 09:51 PAINTER SPRING.LMIL (ml) Colloids volume administered ( ml) Blood Product volume administered (ml) Total IV fluid infused 1,400 04/15/25 09:51 PAINTER SPRING.LMIL Anesthesia Postop Eval I: Summary Notes Anesthesia Complication No 04/15/25 09:51 PAINTER SPRING.LMIL Anesthesia Complication Comment: Post-operative progress note Anesthesia: Postop Eval II Evaluation Mental status: Awake Pain Level: 2 nausea: No Vomiting: No
[2025-04-15] MEDS: 0.9% Normal Saline (1000mL) 1,000 ML 50 ML IV (11:12)
[2025-04-15] MEDS: Cholecalciferol (VIT D3) 25 MCG TABLET (1,000 UNITS) 50 MCG PO (12:11)
[2025-04-15] MEDS: Docusate Sodium 100 MG Capsule 200 MG PO ×2 (12:11→22:13)
[2025-04-15] MEDS: Atorvastatin Calcium 40 MG Tablet PO (12:11)
[2025-04-15] MEDS: Cefazolin 1 GM/50 ML BAG IV ×2 (15:44→23:54)
[2025-04-16 04:11] VITALS: BP 137/69; PULSE 69; RESP 15; TEMP 36.9; O2SAT 98
[2025-04-16] MEDS: Ketorolac 15 MG/ML Vial IV (06:13)
[2025-04-16 06:31] LABS: Absolute Lymphocyte Count 1.07 X10^3/uL (0.83-4.51); Absolute Neutrophil Count 10.3 X10^3/uL (2.0-7.7); Basophil# 0.03 X10^3/uL; Basophil% 0.2 % (0-1); Eosinophil# 0.07 X10^3/uL; Eosinophils% 0.6 % (0-5); Hematocrit 37.4 % (40-54); Hemoglobin 12.9 g/dL (13.0-16.5); Lymphocyte # 1.07 X10^3/ul (0.83-4.51); Lymphocyte % 8.8 % (19-41); Mean Corp Hgb Conc 34.5 g/dL (32-36); Mean Corpuscular Hgb 29.6 pg (27.0-32.0); Mean Corpuscular Volume 85.8 fL (80-94); Monocyte# 0.73 X10^3/uL; NRBC Flagged by Analyzer 0 % (0-5); Neutrophil # 10.28 X10^3/uL (2.7-7.7); Neutrophil % 84.2 % (47-70); Platelet Count 181 K/mm3 (150-450); RBC Distribution Width CV 13.2 % (11.6-14.6); RBC Distribution Width SD 40.8 fl (35.1-43.9); Red Blood Count 4.36 M/mm3 (4.6-6.2); White Blood Count 12.2 K/mm3 (4.4-11.0)
[2025-04-16 06:57] LABS: Anion Gap 10 (5-15); BUN 21 mg/dL (4-19); Calcium,Total 8.9 mg/dL (7.6-11.0); Carbon Dioxide 23.7 mmol/L (21.0-32.0); Chloride 105 mmol/L (98-108); Creatinine, Serum 0.98 mg/dL (0.70-1.20); EST Glomerular Filtration Rate 79 (>60); Glucose 103 mg/dL (70-99); Potassium 4.3 mmol/L (3.3-5.1); Sodium Level 139 mmol/L (133-145)
--- NOTE | 2025-04-16 07:13 | PCM.DC.SUM ---
Providers Date of Admission: 04/15/25 Primary Care Physician: Dr. Melissa العراقي DO Reason For Visit: Lap Robotic Simple Prostatectomy Medications at Discharge Home Medications aspirin 81 mg tablet,delayed release (Adult Low Dose Aspirin) 81 mg PO QDAY [employer] #30 tabs 03/24/20 Held on 04/15/25. Instructions: Resume on 04/29/25. cholecalciferol (vitamin D3) 50 mcg (2,000 unit) capsule 2,000 unit PO DAILY supplement 08/05/20 atenolol 25 mg tablet 12.5 mg PO Q OTHER DAY heart 10/19/21 atorvastatin 40 mg tablet 40 mg PO DAILY 03/15/25 cephalexin 500 mg capsule 500 mg PO BID #20 caps 04/15/25 oxycodone 5 mg tablet 5 mg PO Q6H PRN pain 7 days #14 tabs 04/15/25 Hospital Course Operations - (robotic simple prostatectomy) Weight / BMI Weight Weight: 61 kg Body Mass Index (BMI) 21.0 ABG / Lab / Microbiology Data 04/16/25 06:06 04/16/25 06:06 Laboratory: Laboratory Results - last 24 hr 04/16/25 06:06: WBC 12.2 H, RBC 4.36 L, Hgb 12.9 L, Hct 37.4 L, MCV 85.8, MCH 29.6, MCHC 34.5, RDW Std Deviation 40.8, RDW Coeff of Treva 13.2, Plt Count 181, MPV 11.0, Immature Gran % (Auto) 0.200, Neut % (Auto) 84.2 H, Lymph % (Auto) 8.8 L, [place] % (Auto) 6.0, Eos % (Auto) 0.6, Baso % (Auto) 0.2, Absolute Neuts (auto) 10.3 H, Absolute Lymphs (auto) 1.07, Nucleated RBC % 0, Sodium 139, Potassium 4.3, Chloride 105, Carbon Dioxide 23.7, Anion Gap 10, BUN 21 H, Creatinine 0.98, Estim Creat Clear Calc 53.60, Est GFR (MDRD) Non-Af 79, BUN/Creatinine Ratio 21.0 H, Glucose 103 H, Calcium 8.9 D/C Instructions Discharge Diet: No restrictions, Light diet - advance as tolerated and Soft diet May shower in (days): 1 Call your doctor if you observe: Fever of 101 or Higher and Uncontrolled pain Suture Line Care: Avoid Pulling/Pushing and Avoid Pinching/Bending Catheter: Bello to leg bag and Bello to large bag Drain: [place] DC O2, CPAP, BIPAP Needs Home O2 Discharge instructions: No Please Follow Up With: Flash Becker MD When: [phone], appt next to remove bello Meaningful Use Info Meaningful Use Meaningful Use Diagnoses (Choose all that apply): None applicable Ischemic Stroke Statin Dosing Therapy Reference: STATIN DOSE THERAPY REFERENCE: * Patients > 75 years receive moderate or high dose statin therapy. * Patients 75 years or YOUNGER should receive HIGH intensity statin dose unless contraindicated. You will be required to document reason for non-treatment if statin daily dose does not meet guidelines. HIGH DOSE STATIN THERAPY DAILY Atorvastatin > than or = to 40 mg Rosuvastatin > than or = to 20 mg Amlodipine + Atorvastatin > than or = to 2.5/40 mg Ezetimibe + Simvastatin 10/80 mg Simvastatin 80mg Discharge Plan Admission Admit Date/Time: 04/15/25 09:24 Primary Reason for Your Visit: simple prostatectomy Attending Provider: Flash Becker Primary Care Provider: Melissa العراقي Discharge Orders/Prescriptions Prescriptions: New cephalexin 500 mg capsule 500 mg PO BID Qty: 20 0RF oxycodone 5 mg tablet 5 mg PO Q6H PRN (Reason: pain) 7 Days Qty: 14 0RF Continued atenolol 25 mg tablet 12.5 mg PO Q OTHER DAY Rx Instructions: every other day cholecalciferol (vitamin D3) 2,000 UNIT capsule 2,000 unit PO DAILY atorvastatin 40 mg tablet 40 mg PO DAILY Held aspirin [Adult Low Dose Aspirin] 81 mg tablet,delayed release (DR/EC) 81 mg PO QDAY Qty: 30 3RF Hold Instructions: Resume on 04/29/25. Discontinued tamsulosin 0.4 mg capsule 0.4 mg PO DAILY Qty: 30 0RF Referrals / Follow Up: Melissa العراقي DO [Primary Care Provider] - Flash Becker MD [Med Staff - Active Staff] -
[2025-04-16 09:00] VITALS: BP 146/70; PULSE 64; RESP 16; TEMP 37; O2SAT 100
== END 2025-04-16 09:05 | disposition home or self-care (01) ==
LOC: ACINP 10:31 → SDC 11:01 → MS3 11:02
PROVIDERS: Admitting Provider Urology; PCP Internal Medicine; Referring Provider Urology; Visit Provider Urology
PROC: 0VT04ZZ Resection of Prostate, Percutaneous Endoscopic Approach (ICD-10-PCS; CPT 55867; principal; 2025-04-15 07:10)
DX: N40.1 Benign prostatic hyperplasia with lower urinary tract symptoms (principal); N13.8 Other obstructive and reflux uropathy; N32.89 Other specified disorders of bladder; Z79.82 Long term (current) use of aspirin; Z79.899 Other long term (current) drug therapy
CPT/HCPCS: 55866; 00865; 36415; 80048; 85025; 88309; 93005; 94668; 96365; 96366; 96375; 96376; 99221; G0378; J2405

== ENCOUNTER 2025-08-27 17:30 | Outpatient (RCR) | payer SELFPAY | END 2025-09-04 23:59 | LOC: NS 17:30 | PROVIDERS: PCP Internal Medicine | DX: Z71.3 Dietary counseling and surveillance (principal) ==

== ENCOUNTER 2025-09-03 11:59 | Outpatient (RCR) | payer SELFPAY | END 2025-09-04 23:59 | LOC: NS 11:59 | PROVIDERS: PCP Internal Medicine | DX: Z71.3 Dietary counseling and surveillance (principal) ==

== ENCOUNTER → 2025-10-05 | Outpatient (CLI) | payer SELFPAY ==
[2025-10-05 09:26] LABS: Mucous, Urine 0 SEEN /hpf (<or=2+); Squamous Epithelial Cells - UA 0 SEEN /hpf (0-5)
[2025-10-05 10:23] LABS: Color, Urine Yellow (Yellow); Glucose, Dipstick Normal (Normal); Ketone-Dipstick Negative (Negative); Leukocyte Esterase-Dipstick Negative /ul (Negative); Nitrite-Dipstick Negative (Negative); Occult Blood-Urine 10 /ul (Negative); Protein-Dipstick Negative (Negative); Specific Gravity, Urine 1.005 (1.002-1.030); Urine Bilirubin Dipstick Negative (Negative)
[2025-10-05 10:27] LABS: Hematocrit 42.9 % (40-54); Hemoglobin 14.1 g/dL (13.0-16.5); Immature Granulocytes Count 0.020 X10^3/uL (0.0-0.0); Mean Corp Hgb Conc 32.9 g/dL (32-36); Mean Corpuscular Volume 89.6 fL (80-94); Mean Platelet Vol. 10.8 fl (6.2-12.0); NRBC Flagged by Analyzer 0 % (0-5); Platelet Count 200 K/mm3 (150-450); RBC Distribution Width CV 12.9 % (11.6-14.6); RBC Distribution Width SD 42.4 fl (35.1-43.9); Red Blood Count 4.79 M/mm3 (4.6-6.2); White Blood Count 5.3 K/mm3 (4.4-11.0)
[2025-10-05 10:45] LABS: Red Blood Cells-Urine 0-5 SEEN /hpf (0-5)
[2025-10-05 11:01] LABS: AST(SGOT) 39 U/L (<=37); Alanine Aminotransfer ALT/SGPT 60 U/L (<=46); Albumin, Serum 4.3 g/dL (3.4-4.8); Alkaline Phosphatase 105 U/L (40-129); Anion Gap 10 (5-15); BUN 15 mg/dL (4-19); BUN/Creat Ratio 15.9 RATIO (10-20); Calcium,Total 9.6 mg/dL (7.6-11.0); Carbon Dioxide 27.1 mmol/L (21.0-32.0); Chloride 102 mmol/L (98-108); Cholesterol 146 mg/dL (<=200); Globulin 2.6 g/dL (2.2-4.2); Glucose 120 mg/dL (70-99); Low Density Lipoprotein Calc. 76 mg/dL; Potassium 3.9 mmol/L (3.3-5.1); Triglycerides 83 mg/dL; Very Low Density Lipoprotein 17 mg/dL (5-40); Vitamin D,25 Hydroxy 55.0 ng/mL (30-100); cholesterol:hdl ratio screen 2.69
[2025-10-05 14:14] LABS: Microalbumin,Random Urine < 12.0 mg/L (<20 mg/L)
== END | disposition home or self-care (01) ==
LOC: CIMLAB 09:23
PROVIDERS: PCP Internal Medicine; Referring Provider Internal Medicine; Visit Provider Internal Medicine
DX: E55.9 Vitamin D deficiency, unspecified (principal); R31.9 Hematuria, unspecified; R73.09 Other abnormal glucose; E78.49 Other hyperlipidemia
CPT/HCPCS: 36415; 80053; 80061; 81001; 82043; 82306; 83036; 85025